=== PATIENT | female | born 1930 | race Caucasian/White ===

== ENCOUNTER 2017-02-20 03:47 | Inpatient (IN) | payer BC, OTHER ==
[~2017-02-20] VITALS: Ht 170.2 cm; Wt 68.0 kg
[2017-02-20] VITALS (12 sets, daily range): BP systolic 124–164; BP diastolic 58–89; PULSE 68–87; TEMP 36.3–37; O2SAT 92–98; Ht 170.2 cm; Wt 68.0 kg
[~2017-02-20 03:47] MED LIST: CLOP1TAB15 PO; DTRSR2 PO; METO25TA3 PO
[2017-02-20] MEDS ORDERED: CALC500C70 PO (05:16)
[2017-02-20] MEDS ORDERED: PRAV20TA PO (05:28)
[2017-02-20] MEDS ORDERED: CARB25TA12 PO (05:30)
[2017-02-20] MEDS ORDERED: DONE10TA12 PO (05:30)
[2017-02-20] MEDS ORDERED: CHOL1CAP PO (05:32)
[2017-02-20] MEDS ORDERED: MULTCHW3 (05:33)
[2017-02-20] MEDS ORDERED: CLR10 PO (05:34)
[2017-02-20 05:42] LABS: BASO % 0.2 %; BASO ABS # 0.02 K/uL (0-0.2); COMPLETE YES; EOS % 0.4 %; HEMATOCRIT 39.2 % (37-47); IG% 0.2 %; LYMPH % 8.3 %; LYMPH ABS # 0.86 K/uL (1.2-3.4); MEAN CELL VOLUME 92.2 fL (80-100); MEAN CORPUSCULAR HEMOGLOBIN 30.4 pg (25-34); MEAN CORPUSCULAR HGB CONC 32.9 g/dl (32-36); MEAN PLATELET VOLUME 10.4 fL (7.4-10.4); MONO % 7.3 %; NEUT % 83.6 %; PLATELET COUNT 157 K/uL (130-400); RED BLOOD COUNT 4.25 M/uL (4.2-5.4); WHITE BLOOD COUNT 10.42 K/uL (4.8-10.8)
[2017-02-20] MEDS ORDERED: TRAMADOL HCL 50 MG TAB PO PRN (06:00)
[2017-02-20] MEDS ORDERED: HYDROmorphone INJ 0.5 MG/0.5 ML SYR IV PRN ×3 (06:00→15:30)
[2017-02-20] MEDS ORDERED: ONDANSETRON INJ 2 MG/ML 2 ML VIAL IV PRN ×3 (06:00→15:45)
[2017-02-20 06:18] LABS: BLOOD UREA NITROGEN 26 mg/dl (7-18); BUN/CREATININE RATIO 17.6 (10-20); CALCIUM 8.4 mg/dl (8.5-10.1); CARBON DIOXIDE 30 mmol/L (21-32); CHLORIDE 106 mmol/L (98-107); GLUCOSE 157 mg/dl (70-99); POTASSIUM 3.9 mmol/L (3.5-5.1); SODIUM 143 mmol/L (136-145)
[2017-02-20] MEDS: SODIUM CHLORIDE 0.45% 1000ML 1,000 ML IV SCH (06:32)
[2017-02-20] MEDS ORDERED: SOD PHOSPHATE/SOD BIPHOSPHATE ENEMA 132 ML BTL PR PRN (08:00)
[2017-02-20] MEDS ORDERED: POLYETHYLENE (MIRALAX) 17 GM PACK PO PRN (08:00)
[2017-02-20] MEDS ORDERED: NALOXONE HCL 0.4 MG/1 ML VIAL/CARP IV PRN (08:00)
[2017-02-20] MEDS ORDERED: BISACODYL 10 MG SUPP PR PRN (08:00)
[2017-02-20 09:19] LABS: ESTIMATED AVERAGE GLUCOSE 137 mg/dl; HA1C FLAG Normal (Normal)
[2017-02-20] MEDS: DONEPEZIL HCL 10 MG TAB PO SCH (09:25)
[2017-02-20] MEDS: LORATADINE 10 MG TAB PO SCH (09:25)
--- NOTE | 2017-02-20 09:52 | HISTORY & PHYSICAL EXAMINATION ---
DATE OF ADMISSION: 02/20/2017 PRIMARY CARE DOCTOR: Dr. Doan. CHIEF COMPLAINT: Right hip fracture. HISTORY OF PRESENT ILLNESS: History obtained from patient and records. Medical history significant for history of CVA, CRI ( baseline creatinine 1.4 to 1.5), Parkinson's disease, dementia. Patient is a personal assisted resident. Last night, patient attempted to get out of bed leading to her slipping on the floor and falling on her right side. No chest pain. No sob. No syncope. No head trauma. Unable to get up. Excruciating R hip pain. Patient evaluated at [facility] ER. Right hip x-ray showed right intertrochanteric hip fracture. Transferred to [facility] for Orthopedic services. MEDICAL HISTORY: As above. SURGERIES: Cataract surgery, hysterectomy, tubal ligation, tonsillectomy/ adenoidectomy. HOME MEDICATIONS: Include Plavix, carbidopa, pravastatin, cholecalciferol, calcium, Centrum. ALLERGIES: ASPIRIN AND PENICILLIN. FAMILY HISTORY: Stomach cancer, breast cancer, heart disease. PERSONAL SOCIAL HISTORY: Nonsmoker, no chronic intake of alcohol. 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 REVIEW OF SYSTEMS: As per HPI, all other ROS negative. FUNCTIONALITY: Able to ambulate at the personal assisted without any exertional chest pain or shortness of breath. PHYSICAL EXAMINATION: VITAL SIGNS: Blood pressure noted to be 130/80, pulse rate 87, RR 16, temperature 36.8, sats 98 on room air. GENERAL: Noted to be slightly uncomfortable. No respiratory distress, oriented. SKIN: Normal color. HEAD, EYES, EARS, NOSE, AND THROAT: Barnhart palpebral conjunctivae. Dry mucosa. NECK: Short neck. LUNGS: Decreased breath sounds. HEART: Regular rate and rhythm. ABDOMEN: Soft. NT EXTREMITIES: Tenderness in the right hip. RLE ext rotated NEUROLOGIC EXAMINATION: No gross focality except for some slowed response to questions. LABORATORY DATA: Hemoglobin 12.9, white cell count 10.4, platelets 200 Sodium 143, chloride 106, CO2 30, creatinine 1.5, glucose was noted to be 157. Chest x-ray from [facility] no acute pathology. EKG as per my interpretation : rate 75, normal sinus rhythm, LVH, TW flattening inferior leads. ASSESSMENT AND PLAN: 1. Traumatic right hip fracture secondary to mechanical fall. 2. Parkinson's disease, stable. 3. History of cerebrovascular accident as per records. 4. Chronic renal insufficiency, creatinine at baseline. 5. Hyperglycemia, rule out diabetes. GMF analgesia (no NSAIDs) Orthopedics consult RE right hip fracture. (Patient's family requesting for [place]. [place] [facility] No medical contraindication to contemplated procedure. Px at low to moderate risk for cardiac complications for intermediate risk procedure as per RCRI. Delirium precautions. PT, OT eval. Check hemoglobin A1c. DVT prophylaxis, SCDs for now. Recommend pharmacologic anticoagulation with Heparin SQ once bleeding risk is deemed to be minimal and negligible. FULL CODE. Patient's son requesting for updates from providers. Mr. Pranay Rogel at [phone]. [facility]
--- NOTE | 2017-02-20 10:34 | ORTHOPEDIC CONSULTATION ---
DATE OF CONSULTATION: 02/20/2017 CHIEF COMPLAINT: Right hip fracture. HISTORY OF PRESENT ILLNESS: This is an 87-year-old female who had her birthday yesterday. She states that she attempted to get out of bed and she had complaints of pain and inability to bear weight on the right side. It is possible that she may have fallen but her recollection of the injury is unclear. She was evaluated at [facility] and she was referred to [facility] for definitive orthopedic treatment. PAST MEDICAL HISTORY: History of CVA, chronic kidney disease, Parkinson's disease, dementia. SURGERIES: Include cataract surgery and tubal ligation. MEDICATIONS: Include Plavix, pravastatin, carbidopa, cholecalciferol, Centrum. ALLERGIES: ASPIRIN AND PENICILLIN. FAMILY HISTORY: History of stomach cancer and breast cancer. PHYSICAL EXAMINATION: Right lower extremity examination shows pain with log roll of the right hip. She has tenderness to the intertrochanteric region. Her calves are soft without significant swelling. She can flex and extend the ankle, but exam is limited secondary to discomfort. The left hip shows no pain with log roll. RADIOGRAPHIC EVALUATION: Radiographs taken at [facility] do show an intertrochanteric hip fracture. There is a fracture to the lesser trochanter, varus displacement is seen. ASSESSMENT: 1. Parkinson's disease, stable. 2. Dementia. 3. History of cerebrovascular accident. 4. Chronic renal insufficiency. 5. Hyperglycemia. PLAN: I discussed surgical treatment options and nonsurgical treatment options with the patient and power of insurance defense attorney. My recommendation is for surgical treatment to allow for immediate ambulation. Surgical treatment I feel would be best performed by intertrochanteric hip nail. I discussed risks and benefits of decreased ambulatory status, risk of anesthesia complications, decreased ability to bear weight, nerve injury, infection, etc. The patient and caregiver are agreeable and wish to proceed with surgical intervention. She is currently on Plavix; however, I feel it would be reasonable to proceed with surgical intervention at this point in time as waiting for the Plavix to get out of the system would increase the risk of complications. Currently, she lives in assisted living [facility] and does ambulate with a walker in the home but minimally in the community.
[2017-02-20] MEDS: CARBIDOPA/LEVODOPA 25/100MG TAB PO SCH ×2 (13:24→20:50)
[2017-02-20] MEDS ORDERED: PROPOFOL IV EMULSION 10 MG/ML 20 ML VIAL IV ONE (13:38)
[2017-02-20] MEDS ORDERED: ONDANSETRON INJ 2 MG/ML 2 ML VIAL ONE (13:38)
[2017-02-20] MEDS ORDERED: FENTANYL CITRATE INJ 50 MCG/1 ML 2 ML VIAL ONE ×2 (13:38→16:01)
[2017-02-20] MEDS ORDERED: LIDOCAINE HCL 2% 2 ML VIAL (20MG/ML) ONE (13:38)
[2017-02-20] MEDS ORDERED: CEFAZOLIN SOD 1000MG/55 ML D5W IV ONE (13:48)
[2017-02-20] MEDS ORDERED: BUPIVACAINE 0.5 % 5 MG/1 ML MPF 30ML VIAL ONE (14:00)
[2017-02-20] MEDS ORDERED: EpHEDrine SULFATE 50MG/5ML SYR ONE (14:57)
[2017-02-20] MEDS ORDERED: LABETALOL HCL IV 5 MG/ML 20ML IV ONE (15:10)
[2017-02-20] MEDS ORDERED: HydrALAZINE HCL 20 MG/ML VIAL ONE (15:11)
--- NOTE | 2017-02-20 15:21 | DIAGNOSTIC IMAGING REPORT ---
HIP OR FILMS CLINICAL HISTORY: RIGHT HIP ORIF COMPARISON STUDY: None FLUOROSCOPY TIME: 2 minutes. FINDINGS: Findings consistent with a right hip rupa placement. Alignment is anatomic IMPRESSION: Image intensifier usage for right hip rupa placement Electronically signed by: Curly Hood M.D. 02/20/2017 3:19 PM Dictated Date/Time: 02/20/2017 3:18 PM
--- NOTE | 2017-02-20 15:36 | [facility] Post Operative Brief Note ---
Immediate Operative Summary Operative Date Feb 20, 2017. Pre-Operative Diagnosis Right hip fracture Post-Operative Diagnosis Same as preop Procedure(s) Performed Intramedullary Thony Right Femur Surgeon Dr. Hobbs Commercial Teller Surgeon(s) Israel Quevedo PA-C Estimated Blood Loss 20 cc Findings intertroch hip fx Specimens None, as per surgeon Anesthesia gen Complication(s) None Disposition Recovery Room / PACU
[2017-02-20] MEDS ORDERED: FENTANYL CITRATE INJ 50 MCG/1 ML 2 ML VIAL IV PRN (15:45)
[2017-02-20] MEDS ORDERED: ATROPINE SULFATE 0.1 MG/ML 5ML SYR IV PRN (15:45)
[2017-02-20] MEDS ORDERED: EpHEDrine SULFATE INJ 50 MG/ML AMP IV PRN (15:45)
[2017-02-20] MEDS ORDERED: PROMETHAZINE HCL INJ 6.25 MG in SODIUM CHLORIDE 0.9% 50ML 50 ML IV PRN (15:45)
--- NOTE | 2017-02-20 15:47 | Anesthesiology Progress Note ---
Anesthesia Post Op Note Date & Time Feb 20, 2017 at 15:47 Vital Signs Pain Intensity: 5.0 Vital Signs Past 12 Hours Date Time Temp Pulse Resp B/P (MAP) Pulse Ox O2 Delivery O2 Flow Rate FiO2 02/20/17 11:39 36.8 72 13 164/82 (109) 96 Room Air 02/20/17 08:06 96 Room Air 02/20/17 07:45 36.9 70 12 152/80 (104) 96 Room Air 02/20/17 07:40 Room Air 02/20/17 07:06 36.8 68 18 159/89 (112) 94 Room Air 02/20/17 05:03 36.8 87 16 137/77 (97) 94 Room Air 02/20/17 04:40 36.8 87 16 137/77 94 Room Air Notes Mental Status: alert / awake / arousable, participated in evaluation Pt Amnestic to Procedure: Yes Nausea / Vomiting: adequately controlled Pain: adequately controlled Airway Patency, RR, SpO2: stable & adequate BP & HR: stable & adequate Hydration State: stable & adequate Anesthetic Complications: no major complications apparent
--- NOTE | 2017-02-20 16:04 | DIAGNOSTIC IMAGING REPORT ---
RIGHT HIP UNILATERAL 2 VIEWS CLINICAL HISTORY: post op Right COMPARISON: None. DISCUSSION: Evidence for right hip nailing procedure. Alignment is anatomic. Expected soft tissue postoperative change IMPRESSION: Right hip nailing procedure Electronically signed by: Curly Hood M.D. 02/20/2017 4:03 PM Dictated Date/Time: 02/20/2017 4:02 PM
--- NOTE | 2017-02-20 16:08 | OPERATIVE REPORT ---
DATE OF OPERATION: 02/20/2017 PREOPERATIVE DIAGNOSIS: Right intertrochanteric displaced hip fracture. POSTOPERATIVE DIAGNOSIS: Same. PROCEDURE: Right intramedullary nail hip fracture. SURGEON: Dr. Hobbs. NUT AND BOLT ASSEMBLER: Vinicio Quevedo PA-C. ANESTHESIA: General. INDICATIONS: This is an 87-year-old female who sustained a displaced intertrochanteric hip fracture. She presents for intramedullary nail fixation. The risks and benefits have been discussed including, but not limited to, risk of infection, nerve injury, stiffness, loss of motion, failure to improve, etc. The patient is agreeable and wishes to proceed. IMPLANT USED: Synthes short trochanteric femoral nail. OPERATION AND FINDINGS: DESCRIPTION OF OPERATION: The patient was placed on the fracture table. Traction was applied and an appropriate reduction maneuver was performed. This resulted in good alignment of the hip. The hip was prepped and draped in the standard fashion. I made an incision approximately 1-1/2 inches proximal to the greater trochanter. Dissection was carried down through the skin and subcutaneous tissue. The fascia was bluntly incised and I placed a guidewire at the tip of the greater trochanter. This was driven into the femoral canal at the appropriate angle. I then used an entry drill to open the femur. A guidewire was placed. I then reamed the proximal portion of the femur up to a size 13. I selected a size 12 Synthes trochanteric femoral nail and this was placed in the canal. This was checked in multiple views with fluoroscopy and this was in good position. I then made a second incision for the locking blade and dissection was carried down through the skin and subcutaneous tissue and fascial layer. The trochanteric femoral nail jig was then placed adjacent to the proximal femur and I placed a guidewire in the center-center position of the femoral head. I then measured and selected a size 100 helical blade. This was then driven into the neck of the femur. I then slightly compressed the femur. The helical blade was locked in place. Care was taken to place the tip of the blade within 1 cm of the subchondral bone. I then made an incision for a locking screw and with the standard alignment guide I drilled for interlocking screw. I then selected a size 36 screw and this was placed across the nail. This resulted in good fixation. This was checked in multiple views with fluoroscopy and was across the nail. Incisions were irrigated. Deeper layer was closed with 2-0 Vicryl. Rizwan were used on the skin. The patient was placed in a soft dressing, sent to the PACU in stable condition. Postop plan will be partial weightbearing with a walker and Lovenox for anticoagulation. I attest to the content of the Intraoperative Record and any orders documented therein. Any exception s are noted below.
[2017-02-20 17:14] LABS: PROTHROMBIN TIME (PATIENT) 10.5 SECONDS (9.0-12.0)
--- NOTE | 2017-02-20 18:09 | Hospitalist Progress Note ---
Hospitalist Progress Note Date of Service Feb 20, 2017. (Hardik Rsusell PA-C) Subjective Pt evaluation today including: conversation w/ patient, conversation w/ family (Son is in the room) Pain: Controlled PO Intake: Dinner tray at bedside. Patient to have [employer] assist with meal This is an 87 year old female that slid off the couch at [facility] where she resides. She was transported to the ED in [place] and found to have a right hip fracture. Ortho was not available at [facility] so she was transferred to [facility] where she was seen by [facility] per the request of the family. She was seen by Dr. Hobbs and taken to the OR this afternoon where she had Synthes short trochanteric femoral nail fixation. She had an estimated blood loss of 20 mL. There were no reported complications. Patient was recovered by PACU and transferred back to room 350. Family is at bedside. She reports that she has no pain at the surgical site. Ice packs are in place. There is no evidence of bleeding through the dressings and no ecchymosis. Right foot is no longer rotated and sensation to toes is intact. As SCDs are compressing, patient complains that her legs feel tight but has no calf pain. She has no pleuritic pain or SOB. She is oxygenating with no signs of distress. She has no other acute complaints. No history of tobacco or EtOH use in the past PMH: Parkinson's with dementia CVA in 2008 TIA in 2016 HTN Seasonal Allergies CRF Baseline 1.4 to 1.5 PSH: LAYTON/BSO Breast Biopsy with Dr. Dumont Vein ligation Tonsillectomy / adenoidectomy as a child Home Meds: Calcium Cholecalciferol Clopidogrel Donepezil Sinemet Claritin Pravastatin MVI Allergies: ASA caused cough due to the coating 20 years ago PCN = rash VACCINATIONS: Influenza: 06/26/2016 Pneumococcal: 04/24/2002 TdAP: 04/24/2002 Zoster: 11/18/2012 Constitutional: No fever Respiratory: No cough Cardiovascular: No chest pain Abdomen: No nausea, No vomiting, No diarrhea Musculoskeletal: No joint pain Heme: No abnormal bleeding/bruising Skin: No rash, No itch All Other Systems: Reviewed and Negative (Hardik Russell PA-C) Medications Current Inpatient Medications Medications (Trade) Dose Ordered Sig/[place] Route Start Time Stop Time Status Last Admin Dose Admin Acetaminophen (Tylenol Tab) 650 mg Q4H PRN PO 02/20/17 05:00 03/22/17 04:59 Sodium Chloride 1,000 ml @ 50 mls/hr Q20H IV 02/20/17 06:00 03/22/17 05:59 02/20/17 06:32 50 MLS/HR Tramadol HCl (Ultram Tab) 25 mg Q6H PRN PO 02/20/17 06:00 03/22/17 05:59 Ondansetron HCl (Zofran Inj) 4 mg Q6H PRN IV 02/20/17 06:00 03/22/17 05:59 Hydromorphone HCl (Dilaudid Inj) 0.5 mg Q4H PRN IV 02/20/17 06:00 03/06/17 05:59 Carbidopa/Levodopa (Sinemet 25/ 100MG Tab) 2 tab TID PO 02/20/17 14:00 03/22/17 13:59 Donepezil HCl (Aricept Tab) 10 mg DAILY PO 02/20/17 09:00 03/22/17 08:59 02/20/17 09:25 10 MG Loratadine (Claritin Tab) 10 mg DAILY PO 02/20/17 09:00 03/22/17 08:59 02/20/17 09:25 10 MG Pravastatin Sodium (Pravachol Tab) 20 mg HS PO 02/20/17 21:00 03/22/17 20:59 Naloxone HCl (Narcan Inj) 0.1 mg PRN PRN IV 02/20/17 08:00 03/22/17 07:59 Senna/Docusate Sodium (Senokot S Tab) 2 tab HS PO 02/20/17 21:00 03/22/17 20:59 Polyethylene (Miralax Powder Packet) 17 gm DAILY PRN PO 02/20/17 08:00 03/22/17 07:59 Magnesium Hydroxide (Milk Of Magnesia Susp) 30 ml DAILY PRN PO 02/20/17 08:00 03/22/17 07:59 Bisacodyl (Dulcolax Supp) 10 mg DAILY PRN MA 02/20/17 08:00 03/22/17 07:59 Sodium Biphosphate/ Sodium Phosphate (Fleet Enema) 132 ml PRN PRN MA 02/20/17 08:00 Enoxaparin Sodium (Lovenox Inj) 40 mg Q24H SQ 02/20/17 15:30 03/22/17 15:29 UNV Cefazolin Sodium 1000 mg/Dextrose 55 ml @ 100 mls/hr Q8H IV 02/20/17 22:00 02/21/17 06:32 Ondansetron HCl (Zofran Inj) 4 mg Q6H PRN IV 02/20/17 15:30 03/22/17 15:29 Hydromorphone HCl (Dilaudid Inj) 0.25 mg Q20M PRN IV 02/20/17 15:30 03/06/17 15:29 Hydromorphone HCl (Dilaudid Inj) 0.5 mg Q20M PRN IV 02/20/17 15:30 03/06/17 15:29 Fentanyl Citrate (Fentanyl Inj) 50 mcg Q5M PRN IV 02/20/17 15:45 02/20/17 20:45 Ondansetron HCl (Zofran Inj) 4 mg ONE PRN IV 02/20/17 15:45 02/20/17 20:45 Promethazine HCl 6.25 mg/Sodium Chloride 50.25 ml @ 202 mls/hr ONE PRN IV 02/20/17 15:45 02/20/17 20:45 Ephedrine Sulfate (EpHEDrine SULFATE INJ) 5 mg Q5M PRN IV 02/20/17 15:45 02/20/17 20:45 Atropine Sulfate (Atropine Sulfate 0.1MG/Ml Inj) 0.5 mg Q1M PRN IV 02/20/17 15:45 02/20/17 20:45 (Hardik Russell-C) Objective Vital Signs Date Time Temp Pulse Resp B/P (MAP) Pulse Ox O2 Delivery O2 Flow Rate FiO2 02/20/17 17:10 36.3 86 18 124/69 (87) 98 Nasal Cannula 2.0 02/20/17 16:20 36.0 80 14 139/68 97 Nasal Cannula 2 02/20/17 16:10 80 12 138/62 96 Nasal Cannula 2 02/20/17 16:00 81 12 145/68 96 Nasal Cannula 2 02/20/17 15:50 80 14 141/80 96 Nasal Cannula 2 02/20/17 15:40 76 15 134/60 98 Mask 10 02/20/17 15:30 77 12 140/65 99 Mask 10 02/20/17 15:24 36.5 78 20 159/69 99 Mask 10 02/20/17 11:39 36.8 72 13 164/82 (109) 96 Room Air 02/20/17 08:06 96 Room Air 02/20/17 07:45 36.9 70 12 152/80 (104) 96 Room Air 02/20/17 07:40 Room Air 02/20/17 07:06 36.8 68 18 159/89 (112) 94 Room Air 02/20/17 05:03 36.8 87 16 137/77 (97) 94 Room Air 02/20/17 04:40 36.8 87 16 137/77 94 Room Air (Hardik Russell-C) Physical Exam Notes: Vital Signs - as noted below Laboratory Data - as noted below Physical Exam: General - NAD, pleasant Eyes - No icterus, gaze conjugate, PERRL ENT - Mucosa moist, no lesions or candidiasis Neck - Supple, No JVD Lungs - No bronchospasm, rales, or rhonchi. Good aeration Heart - Regular, rate controlled Abdomen - Soft, NT, ND, BS present Extremities - B/L LE edema, pedal pulses intact and equal to B/L LE Neuro - Awake and alert, pleasant (Hardik Russell-C) Laboratory Results Last 24 Hours Test 02/20/17 05:30 02/20/17 16:45 White Blood Count 10.42 K/uL Red Blood Count 4.25 M/uL Hemoglobin 12.9 g/dL Hematocrit 39.2 % Mean Corpuscular Volume 92.2 fL Mean Corpuscular Hemoglobin 30.4 pg Mean Corpuscular Hemoglobin Concent 32.9 g/dl Platelet Count 157 K/uL Mean Platelet Volume 10.4 fL Neutrophils (%) (Auto) 83.6 % Lymphocytes (%) (Auto) 8.3 % Monocytes (%) (Auto) 7.3 % Eosinophils (%) (Auto) 0.4 % Basophils (%) (Auto) 0.2 % Neutrophils # (Auto) 8.72 K/uL Lymphocytes # (Auto) 0.86 K/uL Monocytes # (Auto) 0.76 K/uL Eosinophils # (Auto) 0.04 K/uL Basophils # (Auto) 0.02 K/uL RDW Standard Deviation 46.2 fL RDW Coefficient of Variation 13.7 % Immature Granulocyte % (Auto) 0.2 % Immature Granulocyte # (Auto) 0.02 K/uL Sodium Level 143 mmol/L Potassium Level 3.9 mmol/L Chloride Level 106 mmol/L Carbon Dioxide Level 30 mmol/L Anion Gap 7.0 mmol/L Blood Urea Nitrogen 26 mg/dl Creatinine 1.50 mg/dl Estimated GFR () 36.2 Estimated GFR (Non- 31.2 BUN/Creatinine Ratio 17.6 Random Glucose 157 mg/dl Estimated Average Glucose 137 mg/dl Hemoglobin A1c 6.4 % Calcium Level 8.4 mg/dl 25-Hydroxy Vitamin D Total 30.9 ng/ml Prothrombin Time 10.5 SECONDS Prothromb Time International Ratio 1.0 Activated Partial Thromboplast Time 25.7 SECONDS Partial Thromboplastin Ratio 1.0 (Hardik Russell PA-C) Diagnostic Results RIGHT HIP UNILATERAL 2 VIEWS CLINICAL HISTORY: post op Right COMPARISON: None. DISCUSSION: Evidence for right hip nailing procedure. Alignment is anatomic. Expected soft tissue postoperative change IMPRESSION: Right hip nailing procedure Electronically signed by: Curly Hood M.D. 02/20/2017 4:03 PM (Hardik Russell PA-C) Assessment and Plan HIP FRACTURE Mechanical fall Ortho consulted - Appreciate Dr. Hobbs's input Trochanteric nailing - EBL 20 mL Pain controlled Increase ambulation per Ortho Discussed need for possible rehab placement with family PARKINSON'S DEMENTIA Continue Sinemet and Aricept Hx OF CVA / TIA Clopidogrel held today for surgical procedure Family states that she is at baseline Resume Plavix per ortho Continue Pravastatin Hx HTN No home meds Hemodynamically stable Treat PRN DVT PROPHYLAXIS Chemical prophylaxis per ortho SCDs in place Please refer to Dr. Perez's addendum for further recommendations Continued [facility] stay due to: ambulation difficulties, other (Fixation of fractured hip 02/20/2017) Discharge planning: uncertain (Hardik Russell PA-C) ATTENDING ADDENDUM: I have seen and examined the patient and agree with the assessment and plan as stated above. DO ADOLFO (Layla Perez, DO)
[2017-02-20] MEDS: PRAVASTATIN SOD 20 MG TAB PO SCH (20:49)
[2017-02-20] MEDS: DOCUSATE SODIUM/SENNA 50/8.6MG TAB PO SCH (20:49)
[2017-02-20] MEDS: CEFAZOLIN IV 1,000 MG in DEXTROSE 5% 50ML 50 ML IV SCH (21:57)
[2017-02-21] VITALS (7 sets, daily range): BP systolic 144–179; BP diastolic 70–79; PULSE 71–89; TEMP 36.3–37.2; O2SAT 93–98
[2017-02-21] MEDS: SODIUM CHLORIDE 0.45% 1000ML 1,000 ML IV SCH (02:30)
[2017-02-21] MEDS: ACETAMINOPHEN 325 MG TAB PO PRN ×2 (05:40→12:28)
[2017-02-21] MEDS: CEFAZOLIN IV 1,000 MG in DEXTROSE 5% 50ML 50 ML IV SCH (05:42)
[2017-02-21] MEDS: ENOXAPARIN 40 MG/0.4 ML SYR SQ SCH (05:45)
[2017-02-21 06:14] LABS: HEMATOCRIT 35.9 % (37-47); MEAN CORPUSCULAR HEMOGLOBIN 30.6 pg (25-34); MEAN CORPUSCULAR HGB CONC 32.9 g/dl (32-36); MEAN PLATELET VOLUME 10.5 fL (7.4-10.4); PLATELET COUNT 147 K/uL (130-400); RED BLOOD COUNT 3.86 M/uL (4.2-5.4); WHITE BLOOD COUNT 10.58 K/uL (4.8-10.8)
[2017-02-21 06:43] LABS: BUN/CREATININE RATIO 19.5 (10-20); CALCIUM 8.2 mg/dl (8.5-10.1); CREATININE 1.4 mg/dl (0.60-1.20); POTASSIUM 4.1 mmol/L (3.5-5.1)
[2017-02-21] MEDS ORDERED: SODIUM CHLORIDE 0.45% 1000ML 1,000 ML IV ONE ×2 (07:00→07:15)
--- NOTE | 2017-02-21 08:11 | Orthopedic Progress Note ---
Orthopedic Progress Note Date of Service Feb 21, 2017. Subjective Post OP Day: 1 Reports: feeling well, pain controlled w PO medications, Denies: complaints, chest pain, SOB, nausea / vomiting, light headedness, calf pain Additional Notes: Patient states she feels hungry this morning. She denies any pain at the time of examination. Objective calves soft nontender, capillary refill less than 2 sec., dressing C/D/I, A&O x3 , toes mobile Patient was laying in bed with her eyes were closed during entire examination but answered questions appropriately. Dressings are clean, dry and intact. Neurovascularly intact. Date Time Temp Pulse Resp B/P (MAP) Pulse Ox O2 Delivery O2 Flow Rate FiO2 02/21/17 07:12 36.7 71 16 154/74 (100) 97 2.0 02/21/17 07:00 Nasal Cannula 2.0 02/21/17 04:38 37.2 89 16 144/77 (99) 93 Room Air 02/21/17 00:00 Room Air 02/20/17 22:48 37.0 85 15 149/71 (97) 92 Room Air 02/20/17 19:58 36.9 83 16 149/69 (95) 98 Nasal Cannula 2.0 02/20/17 18:47 37.0 86 16 148/69 (95) 96 Nasal Cannula 2.0 02/20/17 17:40 36.7 79 16 158/58 (91) 97 Nasal Cannula 2.0 02/20/17 17:10 36.3 86 18 124/69 (87) 98 Nasal Cannula 2.0 02/20/17 16:40 Nasal Cannula 2.0 02/20/17 16:40 36.7 14 129/66 (87) 98 Nasal Cannula 2.0 02/20/17 16:40 98 Nasal Cannula 2.0 02/20/17 16:20 36.0 80 14 139/68 97 Nasal Cannula 2 02/20/17 16:10 80 12 138/62 96 Nasal Cannula 2 02/20/17 16:00 81 12 145/68 96 Nasal Cannula 2 02/20/17 15:50 80 14 141/80 96 Nasal Cannula 2 02/20/17 15:40 76 15 134/60 98 Mask 10 02/20/17 15:30 77 12 140/65 99 Mask 10 02/20/17 15:24 36.5 78 20 159/69 99 Mask 10 02/20/17 11:39 36.8 72 13 164/82 (109) 96 Room Air 02/20/17 08:06 96 Room Air Laboratory Results 24 Hours: Test 02/20/17 16:45 02/21/17 06:00 Prothromb Time International Ratio 1.0 Prothrombin Time 10.5 SECONDS Hematocrit 35.9 % Hemoglobin 11.8 g/dL Assessment & Plan Assessment: 87 y/o female POD #1 S/P Right intertrochanteric nail. Plan: 1. Med Management 2. PT/OT - partial weight bearing 3. DVT prop - Lovenox and plavix 4. Discharge - uncertain Inhouse Planning Pain Management: Dilaudid DVT Prophylaxis: SCDs, Lovenox, other (Plavix) Discharge Planning Discharge Planning: uncertain
[2017-02-21] MEDS: LORATADINE 10 MG TAB PO SCH (08:32)
[2017-02-21] MEDS: DONEPEZIL HCL 10 MG TAB PO SCH (08:32)
[2017-02-21] MEDS: CARBIDOPA/LEVODOPA 25/100MG TAB PO SCH ×3 (08:32→21:00)
[2017-02-21] MEDS ORDERED: CLOPIDOGREL BISULFATE 75 MG TAB PO SCH (09:00)
--- NOTE | 2017-02-21 15:15 | PROGRESS NOTE ---
DATE: 02/21/2017 SUBJECTIVE: Laureen was seen at the bedside today. She notes no complaints of pain in the right hip. OBJECTIVE: RIGHT LOWER EXTREMITY: She has no tenderness over the calf and no significant swelling in the calf. Her surgical dressings are clean, dry and intact. She can flex and extend the ankle and the toes. IMAGING DATA: Postoperative radiographs do show adequate alignment status post trochanteric femoral nailing for intertrochanteric fracture. ASSESSMENT: Postop day #1 right intertrochanteric femoral nail. PLAN: At this point in time, she may be partial weightbearing with a walker. We will continue Lovenox and SCDs for anticoagulation. She may be mobilized with physical therapy. We will continue to follow.
--- NOTE | 2017-02-21 17:54 | Progress Note ---
Medicine Progress Note Date & Time of Visit: Feb 21, 2017 at 17:43. Subjective patient seen resting in bed, comfortable pleasant, oriented x 2 denies pain, shortness of breath, chest pain, nausea, dizziness no other symptoms Objective Last 8 Hrs Date Time Temp Pulse Resp B/P (MAP) Pulse Ox O2 Delivery O2 Flow Rate FiO2 02/21/17 15:23 36.3 72 16 168/78 (108) 98 Nasal Cannula 2.0 Humidified Oxygen 02/21/17 15:05 98 Nasal Cannula 2.0 Humidified Air 02/21/17 13:14 72 97 02/21/17 11:15 Nasal Cannula 2.0 02/21/17 11:13 36.4 78 16 152/76 (101) 95 2.0 Physical Exam: General- oriented x 2, not in distress, speaks in sentences with no effort Head- atraumatic Eyes- anicteric ENT- oropharynx clear Neck- supple, no JVD Lungs- clear breath sounds bilaterally Heart- regular rhythm; no murmur, normal rate Abdomen- normal bowel sounds, soft, nontender Extremities- no pretibial edema, no calf tenderness; peripheral pulses intact right hip: (+) dressing in place, no warmth/hematoma Neuro- alert, oriented x 2;no gross focal deficits Skin- warm & dry Laboratory Results: Last 24 Hours Test 02/21/17 06:00 White Blood Count 10.58 K/uL Red Blood Count 3.86 M/uL Hemoglobin 11.8 g/dL Hematocrit 35.9 % Mean Corpuscular Volume 93.0 fL Mean Corpuscular Hemoglobin 30.6 pg Mean Corpuscular Hemoglobin Concent 32.9 g/dl RDW Standard Deviation 48.3 fL RDW Coefficient of Variation 14.3 % Platelet Count 147 K/uL Mean Platelet Volume 10.5 fL Sodium Level 140 mmol/L Potassium Level 4.1 mmol/L Chloride Level 103 mmol/L Carbon Dioxide Level 29 mmol/L Anion Gap 8.0 mmol/L Blood Urea Nitrogen 27 mg/dl Creatinine 1.40 mg/dl Est Creatinine Clear Calc Drug Dose 28.1 ml/min Estimated GFR () 39.3 Estimated GFR (Non- 33.9 BUN/Creatinine Ratio 19.5 Random Glucose 161 mg/dl Calcium Level 8.2 mg/dl Assessment & Plan 87 year old female with history of Dementia, Parkinson,CKD 3, CVA presenting s/p Fall. RIGHT HIP FRACTURE S/P Mechanical fall -- s/p Trochanteric nailing 02/20/17 -- post op day 1 -- overall stable monitor Hg on Lovenox SC for DVT prophylaxis PARKINSON'S DEMENTIA Continue Sinemet and Aricept Hx OF CVA / TIA Clopidogrel held for surgical procedure Resume Plavix when cleared by Ortho Continue Pravastatin Hx HTN No home meds PRN Clonidine monitor BP PRE DM a1c 6.4 BSGs stable DM diet VIT D DEFICIENCY on supplementation monitor as outpatient DVT PROPHYLAXIS Lovenox SCDs in place Disposition anticipate d/c to SNF when cleared by Ortho Continued [facility] stay due to: ambulation difficulties, other (Fixation of fractured hip 02/20/2017) Discharge planning: uncertain Current Inpatient Medications: Current Inpatient Medications Medications (Trade) Dose Ordered Sig/[place] Route Start Time Stop Time Status Last Admin Dose Admin Acetaminophen (Tylenol Tab) 650 mg Q4H PRN PO 02/20/17 05:00 03/22/17 04:59 02/21/17 12:28 650 MG Tramadol HCl (Ultram Tab) 25 mg Q6H PRN PO 02/20/17 06:00 03/22/17 05:59 Ondansetron HCl (Zofran Inj) 4 mg Q6H PRN IV 02/20/17 06:00 03/22/17 05:59 Hydromorphone HCl (Dilaudid Inj) 0.5 mg Q4H PRN IV 02/20/17 06:00 03/06/17 05:59 Carbidopa/Levodopa (Sinemet 25/ 100MG Tab) 2 tab TID PO 02/20/17 14:00 03/22/17 13:59 02/21/17 13:37 2 TAB Donepezil HCl (Aricept Tab) 10 mg DAILY PO 02/20/17 09:00 03/22/17 08:59 02/21/17 08:32 10 MG Loratadine (Claritin Tab) 10 mg DAILY PO 02/20/17 09:00 03/22/17 08:59 02/21/17 08:32 10 MG Pravastatin Sodium (Pravachol Tab) 20 mg HS PO 02/20/17 21:00 03/22/17 20:59 02/20/17 20:49 20 MG Naloxone HCl (Narcan Inj) 0.1 mg PRN PRN IV 02/20/17 08:00 03/22/17 07:59 Senna/Docusate Sodium (Senokot S Tab) 2 tab HS PO 02/20/17 21:00 03/22/17 20:59 02/20/17 20:49 2 TAB Polyethylene (Miralax Powder Packet) 17 gm DAILY PRN PO 02/20/17 08:00 03/22/17 07:59 Magnesium Hydroxide (Milk Of Magnesia Susp) 30 ml DAILY PRN PO 02/20/17 08:00 03/22/17 07:59 Bisacodyl (Dulcolax Supp) 10 mg DAILY PRN [place] 02/20/17 08:00 03/22/17 07:59 Sodium Biphosphate/ Sodium Phosphate (Fleet Enema) 132 ml PRN PRN [place] 02/20/17 08:00 Enoxaparin Sodium (Lovenox Inj) 40 mg Q24H SQ 02/21/17 05:00 03/23/17 04:59 02/21/17 05:45 40 MG Ondansetron HCl (Zofran Inj) 4 mg Q6H PRN IV 02/20/17 15:30 03/22/17 15:29 Hydromorphone HCl (Dilaudid Inj) 0.25 mg Q20M PRN IV 02/20/17 15:30 03/06/17 15:29 Hydromorphone HCl (Dilaudid Inj) 0.5 mg Q20M PRN IV 02/20/17 15:30 03/06/17 15:29 Sodium Chloride 1,000 ml @ 50 mls/hr Q20H ONCE IV 02/21/17 07:15 02/22/17 03:14 02/21/17 07:05 50 MLS/HR
[2017-02-21] MEDS: PRAVASTATIN SOD 20 MG TAB PO SCH (20:59)
[2017-02-21] MEDS: DOCUSATE SODIUM/SENNA 50/8.6MG TAB PO SCH (21:00)
[2017-02-22] MEDS: CLONIDINE HCL 0.1 MG TAB PO PRN (00:23)
[2017-02-22 03:38] VITALS: BP 134/74
[2017-02-22] MEDS: ENOXAPARIN 40 MG/0.4 ML SYR SQ SCH (05:40)
[2017-02-22 05:59] LABS: BASO % 0.2 %; BASO ABS # 0.02 K/uL (0-0.2); COMPLETE YES; EOS % 1.5 %; HEMATOCRIT 32.1 % (37-47); IG% 0.3 %; LYMPH % 10.7 %; LYMPH ABS # 0.97 K/uL (1.2-3.4); MEAN CELL VOLUME 93.3 fL (80-100); MEAN CORPUSCULAR HEMOGLOBIN 29.4 pg (25-34); MEAN CORPUSCULAR HGB CONC 31.5 g/dl (32-36); MEAN PLATELET VOLUME 11.3 fL (7.4-10.4); MONO % 9.9 %; NEUT % 77.4 %; PLATELET COUNT 130 K/uL (130-400); RED BLOOD COUNT 3.44 M/uL (4.2-5.4); WHITE BLOOD COUNT 9.05 K/uL (4.8-10.8)
[2017-02-22 06:31] LABS: BUN/CREATININE RATIO 20.2 (10-20); CALCIUM 7.6 mg/dl (8.5-10.1); CREATININE 1.3 mg/dl (0.60-1.20); POTASSIUM 3.9 mmol/L (3.5-5.1)
--- NOTE | 2017-02-22 06:56 | Orthopedic Progress Note ---
Orthopedic Progress Note Date of Service Feb 22, 2017. Subjective Post OP Day: 2 Additional Notes: Pt sleeping when entering room. Easily awoken. Having some soreness in the right thigh but no other complaints. Objective calves soft nontender, N/V intact, dressing C/D/I, toes mobile Thigh swollen but not tense. Date Time Temp Pulse Resp B/P (MAP) Pulse Ox O2 Delivery O2 Flow Rate FiO2 02/22/17 03:38 134/74 (94) 02/21/17 23:20 Nasal Cannula 2.0 Humidified Oxygen 02/21/17 22:51 37.2 87 16 179/79 (112) 98 Nasal Cannula 2.0 Humidified Oxygen 02/21/17 15:23 36.3 72 16 168/78 (108) 98 Nasal Cannula 2.0 Humidified Oxygen 02/21/17 15:05 98 Nasal Cannula 2.0 Humidified Air 02/21/17 13:14 72 97 02/21/17 11:15 Nasal Cannula 2.0 02/21/17 11:13 36.4 78 16 152/76 (101) 95 2.0 02/21/17 07:12 36.7 71 16 154/74 (100) 97 2.0 02/21/17 07:00 Nasal Cannula 2.0 Laboratory Results 24 Hours: Test 02/22/17 05:15 White Blood Count 9.05 K/uL Red Blood Count 3.44 M/uL Hemoglobin 10.1 g/dL Hematocrit 32.1 % Mean Corpuscular Volume 93.3 fL Mean Corpuscular Hemoglobin 29.4 pg Mean Corpuscular Hemoglobin Concent 31.5 g/dl Platelet Count 130 K/uL Mean Platelet Volume 11.3 fL Neutrophils (%) (Auto) 77.4 % Lymphocytes (%) (Auto) 10.7 % Monocytes (%) (Auto) 9.9 % Eosinophils (%) (Auto) 1.5 % Basophils (%) (Auto) 0.2 % Neutrophils # (Auto) 6.99 K/uL Lymphocytes # (Auto) 0.97 K/uL Monocytes # (Auto) 0.90 K/uL Eosinophils # (Auto) 0.14 K/uL Basophils # (Auto) 0.02 K/uL Assessment & Plan Assessment: 87 y/o female POD #2 S/P Right intertrochanteric nail. Plan: 1. Med Management 2. PT/OT - partial weight bearing 3. DVT prop - Lovenox. Resume Plavix as per Med Service 4. Discharge - uncertain Inhouse Planning Pain Management: Ultram, Dilaudid DVT Prophylaxis: SCDs, Lovenox, other (Plavix) Discharge Planning Discharge Planning: uncertain
--- NOTE | 2017-02-22 06:59 | Consultant Recommendations ---
Thread Checker Recommendations Date of Service Feb 22, 2017. Thread Checker Recommendations [facility] [place] [facility] DISCHARGE INSTRUCTIONS: HIP FRACTURE SELF CARE INSTRUCTIONS: A. You are to ambulate with a walker or crutches for approximately 6 weeks. B. You are PARTIAL WEIGHT BEARING on your operative lower extremity for at least 4 - 6 weeks. C. Wear low heeled shoes with non-slip soles D. Be sure that your floors are free of things that could trip you throw rugs, electrical cords, and small objects. Avoid wet and waxed floors, especially with crutches/walker/cane. E. Try to walk several times a day with rest periods between. F. You may shower 48 hours after surgery and get the incision area wet, but DO NOT soak or submerge incision area in water. (No baths, swimming pools, hot tubs ) G. You may have a large, band-aid like dressing over your incision (Aquacel). This will remain on your incision for 7 days, and then can be removed. You CAN shower with this on. If incision is leaking through the dressing, please call the office . H. Do NOT apply soap or any ointment/lotions directly over incision. I. You may use ice as needed to operative site. SPECIAL CARE INSTRUCTIONS: VERY IMPORTANT TO READ AND REVIEW A. You may be at risk for phlebitis or blood clots. a. Wear surgical stockings (DARNO hose) for 2 weeks after surgery to improve circulation and reduce swelling. b. Take LOVENOX 40mg SQ daily for 4 weeks or as directed. (Plavix as directed by your Primary Care Physician) This is your blood thinner. c. If you are on Coumadin- you will have daily/weekly blood work to monitor your levels. This will be done by either your family physician/ switch operators supervisor (if you are on Coumadin chronically) versus your orthopedic surgeon. Expect a phone call the day of or the day after your blood work is drawn to adjust your dose accordingly. B. There are a few signs you need to watch for after you are home. Call [facility] at [phone] if you experience any of the following: a. If you have a temperature of 101 degrees or higher. b. Sudden increase in pain in your hip not relieved by rest or pain medication. c. Any fluid or drainage from the incision; redness of the incision. d. Shortness of breath or chest pain. B. Please call [facility] at [phone] if you have any questions or concerns about your operation or recovery. C. Call your physician if: a. Temperature is greater than 101 degrees (F). b. Pain is not relieved by prescribed pain medications. c. Increase drainage or redness from incision. d. Unanswered questions or concerns. D. Pain Medication: a. You will be prescribed pain medication upon discharge that should last till your first post-operative appointment. b. If you experience nausea and/or skin rash, discontinue this medication and contact our office for an alternative medication. c. Caution- narcotic pain medication can cause constipation. FOLLOW UP VISIT: Please call [facility] at [phone] to schedule a follow up appointment 10-14 days from the date of your surgery date.
[2017-02-22 07:03] VITALS: BP 167/72; PULSE 75; TEMP 37; O2SAT 94
[2017-02-22] MEDS: LORATADINE 10 MG TAB PO SCH (09:12)
[2017-02-22] MEDS: DONEPEZIL HCL 10 MG TAB PO SCH (09:12)
[2017-02-22] MEDS: CARBIDOPA/LEVODOPA 25/100MG TAB PO SCH ×3 (09:13→20:35)
--- NOTE | 2017-02-22 14:49 | Progress Note ---
Medicine Progress Note Date & Time of Visit: Feb 22, 2017 at 14:43. Subjective seen with son Pranay at bedside patient comfortable, easily rousable from sleep states she fees fine overall has some pain on the right hip when moving also reports cough, non productive, but no dyspnea, chest pain, nausea, dizziness no other symptoms Objective Last 8 Hrs Date Time Temp Pulse Resp B/P (MAP) Pulse Ox O2 Delivery O2 Flow Rate FiO2 02/22/17 10:15 Nasal Cannula 2.0 02/22/17 07:03 37.0 75 17 167/72 (103) 94 Nasal Cannula 2.0 Physical Exam: General- oriented x 2, not in distress, speaks in sentences with no effort Eyes- anicteric Neck- no JVD Lungs- clear breath sounds bilaterally, no rales/wheezes Heart- regular rhythm; no murmur, normal rate Abdomen- normal bowel sounds, soft, nontender Extremities- no pretibial edema, no calf tenderness; peripheral pulses intact right hip: (+) dressing in place, no warmth/hematoma Neuro- alert, oriented x 2;no gross focal deficits Skin- warm & dry Laboratory Results: Last 24 Hours Test 02/22/17 05:15 White Blood Count 9.05 K/uL Red Blood Count 3.44 M/uL Hemoglobin 10.1 g/dL Hematocrit 32.1 % Mean Corpuscular Volume 93.3 fL Mean Corpuscular Hemoglobin 29.4 pg Mean Corpuscular Hemoglobin Concent 31.5 g/dl Platelet Count 130 K/uL Mean Platelet Volume 11.3 fL Neutrophils (%) (Auto) 77.4 % Lymphocytes (%) (Auto) 10.7 % Monocytes (%) (Auto) 9.9 % Eosinophils (%) (Auto) 1.5 % Basophils (%) (Auto) 0.2 % Neutrophils # (Auto) 6.99 K/uL Lymphocytes # (Auto) 0.97 K/uL Monocytes # (Auto) 0.90 K/uL Eosinophils # (Auto) 0.14 K/uL Basophils # (Auto) 0.02 K/uL RDW Standard Deviation 48.9 fL RDW Coefficient of Variation 14.3 % Immature Granulocyte % (Auto) 0.3 % Immature Granulocyte # (Auto) 0.03 K/uL Sodium Level 139 mmol/L Potassium Level 3.9 mmol/L Chloride Level 106 mmol/L Carbon Dioxide Level 26 mmol/L Anion Gap 7.0 mmol/L Blood Urea Nitrogen 26 mg/dl Creatinine 1.30 mg/dl Est Creatinine Clear Calc Drug Dose 30.2 ml/min Estimated GFR () 43.0 Estimated GFR (Non- 37.1 BUN/Creatinine Ratio 20.2 Random Glucose 180 mg/dl Calcium Level 7.6 mg/dl Assessment & Plan 87 year old female with history of Dementia, Parkinson,CKD 3, CVA presenting s/p Fall. RIGHT HIP FRACTURE S/P Mechanical fall -- s/p Trochanteric nailing 02/20/17 -- post op day 2 -- overall stable Hg decreased to 10 monitor Hg on Lovenox SC for DVT prophylaxis ACUTE BLOOD LOSS ANEMIA -- likely from Surgery -- monitor Hg PARKINSON'S DEMENTIA Continue Sinemet and Aricept Hx OF CVA / TIA Clopidogrel held for surgical procedure per ortho, may resume Plavix Continue Pravastatin Hx HTN No home meds PRN Clonidine monitor BP PRE DM a1c 6.4 BSGs stable DM diet VIT D DEFICIENCY on supplementation monitor as outpatient DVT PROPHYLAXIS Lovenox SCDs in place Disposition anticipate d/c to [facility] when accepted Continued [facility] stay due to: ambulation difficulties, other (Fixation of fractured hip 02/20/2017) Discharge planning: uncertain Current Inpatient Medications: Current Inpatient Medications Medications (Trade) Dose Ordered Sig/[place] Route Start Time Stop Time Status Last Admin Dose Admin Acetaminophen (Tylenol Tab) 650 mg Q4H PRN PO 02/20/17 05:00 03/22/17 04:59 02/21/17 12:28 650 MG Tramadol HCl (Ultram Tab) 25 mg Q6H PRN PO 02/20/17 06:00 03/22/17 05:59 02/22/17 10:23 25 MG Ondansetron HCl (Zofran Inj) 4 mg Q6H PRN IV 02/20/17 06:00 03/22/17 05:59 Hydromorphone HCl (Dilaudid Inj) 0.5 mg Q4H PRN IV 02/20/17 06:00 03/06/17 05:59 Carbidopa/Levodopa (Sinemet 25/ 100MG Tab) 2 tab TID PO 02/20/17 14:00 03/22/17 13:59 02/22/17 14:05 2 TAB Donepezil HCl (Aricept Tab) 10 mg DAILY PO 02/20/17 09:00 03/22/17 08:59 02/22/17 09:12 10 MG Loratadine (Claritin Tab) 10 mg DAILY PO 02/20/17 09:00 03/22/17 08:59 02/22/17 09:12 10 MG Pravastatin Sodium (Pravachol Tab) 20 mg HS PO 02/20/17 21:00 03/22/17 20:59 02/21/17 20:59 20 MG Naloxone HCl (Narcan Inj) 0.1 mg PRN PRN IV 02/20/17 08:00 03/22/17 07:59 Senna/Docusate Sodium (Senokot S Tab) 2 tab HS PO 02/20/17 21:00 03/22/17 20:59 02/21/17 21:00 2 TAB Polyethylene (Miralax Powder Packet) 17 gm DAILY PRN PO 02/20/17 08:00 03/22/17 07:59 Magnesium Hydroxide (Milk Of Magnesia Susp) 30 ml DAILY PRN PO 02/20/17 08:00 03/22/17 07:59 Bisacodyl (Dulcolax Supp) 10 mg DAILY PRN [place] 02/20/17 08:00 03/22/17 07:59 Sodium Biphosphate/ Sodium Phosphate (Fleet Enema) 132 ml PRN PRN [place] 02/20/17 08:00 Enoxaparin Sodium (Lovenox Inj) 40 mg Q24H SQ 02/21/17 05:00 03/23/17 04:59 02/22/17 05:40 40 MG Ondansetron HCl (Zofran Inj) 4 mg Q6H PRN IV 02/20/17 15:30 03/22/17 15:29 Hydromorphone HCl (Dilaudid Inj) 0.25 mg Q20M PRN IV 02/20/17 15:30 03/06/17 15:29 Hydromorphone HCl (Dilaudid Inj) 0.5 mg Q20M PRN IV 02/20/17 15:30 03/06/17 15:29 Clonidine HCl (Catapres Tab) 0.1 mg Q6H PRN PO 02/21/17 18:00 03/23/17 17:59 02/22/17 00:23 0.1 MG
[2017-02-22 14:50] VITALS: BP 157/69; PULSE 86; TEMP 37.2; O2SAT 96
[2017-02-22] MEDS ORDERED: CLOPIDOGREL BISULFATE 75 MG TAB PO ONE (15:04)
--- NOTE | 2017-02-22 15:45 | DIAGNOSTIC IMAGING REPORT ---
CHEST ONE VIEW PORTABLE CLINICAL HISTORY: r/o pneumonia dyspnea COMPARISON STUDY: No previous studies for comparison. FINDINGS: Increased density left lung base. This is consistent with that of a left basilar atelectatic change and/or effusion-type change. A trace left basilar effusion may be present. Right hemithorax is clear. IMPRESSION: Atelectatic and/or infiltrative change left base. Trace pleural effusion left base. Electronically signed by: Curly Hood M.D. 02/22/2017 3:43 PM Dictated Date/Time: 02/22/2017 3:42 PM
[2017-02-22] MEDS: MAGNESIUM HYDROXIDE SUSP 30 ML UDC PO PRN (18:44)
[2017-02-22] MEDS: DOCUSATE SODIUM/SENNA 50/8.6MG TAB PO SCH (20:34)
[2017-02-22] MEDS: PRAVASTATIN SOD 20 MG TAB PO SCH (20:43)
[2017-02-22 22:42] VITALS: BP 169/56; PULSE 72; TEMP 38.1; O2SAT 95
[2017-02-22 23:22] VITALS: BP 160/74; TEMP 37.6
[2017-02-22] MEDS: ACETAMINOPHEN 325 MG TAB PO PRN (23:35)
[2017-02-23] VITALS (10 sets, daily range): BP systolic 154–187; BP diastolic 70–92; PULSE 72–94; TEMP 36.9–37.4; O2SAT 88–97
[2017-02-23] MEDS: ENOXAPARIN 40 MG/0.4 ML SYR SQ SCH (05:23)
[2017-02-23 06:02] LABS: HEMATOCRIT 31.5 % (37-47); MEAN CELL VOLUME 93.8 fL (80-100); MEAN CORPUSCULAR HEMOGLOBIN 28.9 pg (25-34); MEAN CORPUSCULAR HGB CONC 30.8 g/dl (32-36); MEAN PLATELET VOLUME 11.1 fL (7.4-10.4); PLATELET COUNT 141 K/uL (130-400); RED BLOOD COUNT 3.36 M/uL (4.2-5.4); WHITE BLOOD COUNT 9.63 K/uL (4.8-10.8)
--- NOTE | 2017-02-23 07:49 | Clinical Documentation Query ---
CLINICAL DOCUMENTATION QUERY Dr. MORRISON, In your clinical opinion is this patient being managed for: ( ) Chronic kidney disease, stage 3 ( ) Other explanation of clinical findings (Please Explain) ( ) Unable to determine (Please Define) ( ) Need to Discuss ( ) Not Agree The medical record reflects the following clinical findings, treatment, and risk factors. Clinical Indicators: 87 yo female presenting with a R hip fracture. H/P indicates pt has chronic renal insufficiency with a baseline Cr of 1.4-1.5. Treatment: monitor PRP's Risk Factors: age, hx CVA Please clarify and document your clinical opinion in the progress notes and discharge summary. Terms such as "probable", "suspected", "likely", "questionable", "possible", or "still to be ruled out" are acceptable. IF IN AGREEMENT, YOU MUST DOCUMENT ABOVE DIAGNOSTIC STATEMENT IN DAILY PROGRESS NOTES AND DISCHARGE SUMMARY. This document is not part of the patient's record. Thank You, Yajaira Boyer, RN [phone]
[2017-02-23] MEDS: LEVOFLOXACIN 750 MG TAB PO SCH (08:02)
[2017-02-23] MEDS: LORATADINE 10 MG TAB PO SCH (08:03)
[2017-02-23] MEDS: DONEPEZIL HCL 10 MG TAB PO SCH (08:03)
[2017-02-23] MEDS: CARBIDOPA/LEVODOPA 25/100MG TAB PO SCH ×3 (08:04→20:33)
[2017-02-23] MEDS: CLOPIDOGREL BISULFATE 75 MG TAB PO SCH (08:05)
[2017-02-23] MEDS ORDERED: LACTULOSE SYRUP 20 GM/30 ML UDC PO ONE (08:42)
[2017-02-23 08:43] LABS: BUN/CREATININE RATIO 19.2 (10-20); CREATININE 1.3 mg/dl (0.60-1.20); POTASSIUM 4.1 mmol/L (3.5-5.1)
[2017-02-23] MEDS ORDERED: BISACODYL 10 MG SUPP PR PRN (08:45)
[2017-02-23] MEDS ORDERED: LACTULOSE SYRUP 10 GM/15 ML BTL 473 ML PO PRN (08:45)
[2017-02-23 08:46] LABS: CALCIUM 7.8 mg/dl (8.5-10.1)
[2017-02-23] MEDS ORDERED: LACTULOSE SYRUP 10 GM/15 ML BTL 473 ML PO STA (08:53)
[2017-02-23] MEDS: ACETAMINOPHEN 325 MG TAB PO PRN (12:28)
[2017-02-23 12:33] LABS: URINE APPEARANCE CLEAR (CLEAR); URINE BILIRUBIN NEG (NEG); URINE COLOR YELLOW; URINE NITRITE NEG (NEG); URINE SPECIFIC GRAVITY 1.015 (1.000-1.030); UROBILINOGEN NEG (NEG)
[2017-02-23 12:42] LABS: MANUAL MICROSCOPIC REQUIRED? NO; REVIEW REQ? NO
--- NOTE | 2017-02-23 13:25 | Orthopedic Progress Note ---
Orthopedic Progress Note Date of Service Feb 23, 2017. Subjective Post OP Day: 3 Reports: feeling well, pain controlled w PO medications, Denies: complaints Additional Notes: Pt sitting up in chair eating her lunch. States that PT came by and worked with her earlier this AM. Pt in good spirits. States that she's having very little pain. Objective calves soft nontender, N/V intact, dressing C/D/I, toes mobile Thigh with swelling but soft and NT. No overt erythema. Date Time Temp Pulse Resp B/P (MAP) Pulse Ox O2 Delivery O2 Flow Rate FiO2 02/23/17 09:54 93 Nasal Cannula 02/23/17 07:48 36.9 72 16 168/72 (104) 93 Nasal Cannula 02/23/17 07:40 95 Nasal Cannula 2.0 Humidified Oxygen 02/23/17 03:33 37.4 154/70 (98) 02/22/17 23:30 Nasal Cannula 2.0 Humidified Oxygen 02/22/17 23:22 37.6 160/74 (102) 02/22/17 22:42 38.1 72 20 169/56 (93) 95 Nasal Cannula 2.0 02/22/17 15:30 Nasal Cannula 2.0 02/22/17 14:50 37.2 86 18 157/69 (98) 96 Nasal Cannula 2.0 Laboratory Results 24 Hours: Test 02/23/17 05:20 Hematocrit 31.5 % Hemoglobin 9.7 g/dL Assessment & Plan Assessment: 87 y/o female POD #3 S/P Right intertrochanteric nail. Plan: Med Management - Fever last night; afeb since then PT/OT - partial weight bearing RLE DVT prop - Lovenox / Plavix Discharge - Planning for [facility] Pt stable orthopedically. Ortho will sign off at this time. Instructions placed in EMR. Please call with any questions. Inhouse Planning Pain Management: Ultram, Dilaudid DVT Prophylaxis: SCDs, Lovenox, other (Plavix) Discharge Planning Discharge Planning: rehab hospital
[2017-02-23] MEDS: MAGNESIUM HYDROXIDE SUSP 30 ML UDC PO PRN (19:56)
[2017-02-23] MEDS: DOCUSATE SODIUM/SENNA 50/8.6MG TAB PO SCH (20:33)
[2017-02-23] MEDS: PRAVASTATIN SOD 20 MG TAB PO SCH (20:33)
[2017-02-23] MEDS: CLONIDINE HCL 0.1 MG TAB PO PRN (23:09)
[2017-02-24] VITALS (8 sets, daily range): BP systolic 112–163; BP diastolic 61–74; PULSE 79–96; TEMP 36.1–36.9; O2SAT 92–98
[2017-02-24] MEDS ORDERED: VANCOMYCIN CONSULT ACTIVE PRN (07:50)
[2017-02-24] MEDS: ENOXAPARIN 30 MG/0.3 ML SYR SQ SCH (08:32)
[2017-02-24] MEDS: LORATADINE 10 MG TAB PO SCH (08:33)
[2017-02-24] MEDS: DONEPEZIL HCL 10 MG TAB PO SCH (08:33)
[2017-02-24] MEDS: CLOPIDOGREL BISULFATE 75 MG TAB PO SCH (08:33)
[2017-02-24] MEDS: CARBIDOPA/LEVODOPA 25/100MG TAB PO SCH ×3 (08:33→21:38)
[2017-02-24 08:36] LABS: BASO % 0.1 %; BASO ABS # 0.01 K/uL (0-0.2); COMPLETE YES; HEMATOCRIT 32.1 % (37-47); IG% 0.4 %; LYMPH % 8.8 %; MEAN CELL VOLUME 93.6 fL (80-100); MEAN CORPUSCULAR HGB CONC 32.1 g/dl (32-36); MEAN PLATELET VOLUME 10.2 fL (7.4-10.4); MONO % 7.5 %; NEUT % 82.2 %; PLATELET COUNT 167 K/uL (130-400); RED BLOOD COUNT 3.43 M/uL (4.2-5.4)
[2017-02-24] MEDS ORDERED: VANCOMYCIN INJ 1,700 MG in SODIUM CHLORIDE 0.9% 500ML 500 ML IV ONE (08:45)
[2017-02-24 09:08] LABS: BUN/CREATININE RATIO 16.7 (10-20); CREATININE 1.2 mg/dl (0.60-1.20); POTASSIUM 4.2 mmol/L (3.5-5.1)
[2017-02-24 09:19] LABS: CALCIUM 8.2 mg/dl (8.5-10.1)
[2017-02-24] MEDS ORDERED: SODIUM CHLORIDE 0.9% 1000ML 1,000 ML IV SCH (10:00)
--- NOTE | 2017-02-24 10:13 | Pharmacy Progress Note ---
Pharmacy Antibiotic Consult Date of Service: Feb 24, 2017. Pharmacy Dosing Scope Pharmacy is consulted to initiate vancomycin IV dosing therapy, order appropriate labs and adjust drug dose/frequency. Subjective The patient is a 87 year old female admitted on Feb 20, 2017 at 04:59. Objective Height (Feet): 5 Height (Inches): 7.00 Weight (Kilograms): 68.000 Lab Results (24hrs): Test 02/23/17 11:00 02/24/17 08:22 Urine Color YELLOW Urine Appearance CLEAR (CLEAR) Urine pH 6.0 (4.5-7.5) Urine Specific [place] 1.015 (1.000-1.030) Urine Protein NEG (NEG) Urine Glucose (UA) NEG (NEG) Urine Ketones NEG (NEG) Urine Occult Blood NEG (NEG) Urine Nitrite NEG (NEG) Urine Bilirubin NEG (NEG) Urine Urobilinogen NEG (NEG) Urine Leukocyte Esterase NEG (NEG) White Blood Count 11.40 K/uL (4.8-10.8) Red Blood Count 3.43 M/uL (4.2-5.4) Hemoglobin 10.3 g/dL (12.0-16.0) Hematocrit 32.1 % (37-47) Mean Corpuscular Volume 93.6 fL (80-100) Mean Corpuscular Hemoglobin 30.0 pg (25-34) Mean Corpuscular Hemoglobin Concent 32.1 g/dl (32-36) Platelet Count 167 K/uL (130-400) Mean Platelet Volume 10.2 fL (7.4-10.4) Neutrophils (%) (Auto) 82.2 % Lymphocytes (%) (Auto) 8.8 % Monocytes (%) (Auto) 7.5 % Eosinophils (%) (Auto) 1.0 % Basophils (%) (Auto) 0.1 % Neutrophils # (Auto) 9.39 K/uL (1.4-6.5) Lymphocytes # (Auto) 1.00 K/uL (1.2-3.4) Monocytes # (Auto) 0.85 K/uL (0.11-0.59) Eosinophils # (Auto) 0.11 K/uL (0-0.5) Basophils # (Auto) 0.01 K/uL (0-0.2) RDW Standard Deviation 48.2 fL (36.4-46.3) RDW Coefficient of Variation 14.1 % (11.5-14.5) Immature Granulocyte % (Auto) 0.4 % Immature Granulocyte # (Auto) 0.04 K/uL (0.00-0.02) Sodium Level 140 mmol/L (136-145) Potassium Level 4.2 mmol/L (3.5-5.1) Chloride Level 103 mmol/L (98-107) Carbon Dioxide Level 31 mmol/L (21-32) Anion Gap 6.0 mmol/L (3-11) Blood Urea Nitrogen 20 mg/dl (7-18) Creatinine 1.20 mg/dl (0.60-1.20) Est Creatinine Clear Calc Drug Dose 32.7 ml/min Estimated GFR () 47.4 Estimated GFR (Non- 40.9 BUN/Creatinine Ratio 16.7 (10-20) Random Glucose 152 mg/dl (70-99) Calcium Level 8.2 mg/dl (8.5-10.1) Micro Results: Item Value Date Time Urine Culture Received 02/23/17 1100 Urine,Catheterized Pending Blood Culture - Preliminary Resulted 02/23/17 0832 Blood Gram Positive Cocci Blood Culture Received 02/23/17 0827 Blood Pending MRSA DNA Surveillance Screen - Final Complete 02/20/17 0910 Nasal Specimen Negative for MRSA by DNA Probe Assessment & Plan Patient started on levaquin (not consult) for possible pneumonia. Vancomycin now added for positive blood cultures (1/2 Gm+ cocci). Nasal swab negative for MRSA. Urine culture and 2nd set of blood cultures are pending. Vancomycin: * LD of vancomycin 1700 mg (~25 mg/kg) x 1 * Will start MD of vancomycin 1000 mg (~15 mg/kg) iv 24 hrs to achieve an estimated trough ~15-20 mcg/ml for bacteremia * Estimated kinetics: t1/2~22 hrs, ke~0.03 hr-1, CrCl ~33 ml/min * Will follow cultures and order trough as necessary if vancomycin is to be continued Pharmacy will continue to follow and will adjust dose/frequency as necessary. Thank you
--- NOTE | 2017-02-24 10:18 | Progress Note ---
Medicine Progress Note Date & Time of Visit: Feb 23, 2017 at 08:43. Subjective seen sitting up in bed, oriented x 2, alert states she has intermittent cough, cannot bring up phlegm, but no dyspnea (+) fever episode last night denies chest pain, abdominal pain, diarrhea no BM's yet no other symptoms Objective Last 8 Hrs Date Time Temp Pulse Resp B/P (MAP) Pulse Ox O2 Delivery O2 Flow Rate FiO2 02/23/17 07:48 36.9 72 16 168/72 (104) 93 Nasal Cannula 02/23/17 03:33 37.4 154/70 (98) Physical Exam: General- oriented x 2, not in distress, speaks in sentences with no effort Eyes- anicteric Neck- no JVD Lungs- clear breath sounds bilaterally, no rales/wheezes Heart- regular rhythm; no murmur, normal rate Abdomen- normal bowel sounds, soft, nontender Extremities- no pretibial edema, no calf tenderness; peripheral pulses intact right hip: (+) dressing in place, no warmth/hematoma Neuro- alert, oriented x 2;no gross focal deficits Skin- warm & dry Laboratory Results: Last 24 Hours Test 02/23/17 05:20 White Blood Count 9.63 K/uL Red Blood Count 3.36 M/uL Hemoglobin 9.7 g/dL Hematocrit 31.5 % Mean Corpuscular Volume 93.8 fL Mean Corpuscular Hemoglobin 28.9 pg Mean Corpuscular Hemoglobin Concent 30.8 g/dl RDW Standard Deviation 48.7 fL RDW Coefficient of Variation 14.3 % Platelet Count 141 K/uL Mean Platelet Volume 11.1 fL Date/Time Source Procedure Growth Status 02/23/17 08:32 Blood Blood Culture Pending Received 02/23/17 08:27 Blood Blood Culture Pending Received Assessment & Plan 87 year old female with history of Dementia, Parkinson,CKD 3, CVA presenting s/p Fall. RIGHT HIP FRACTURE S/P Mechanical fall -- s/p Trochanteric nailing 02/20/17 -- post op day 3 - (+) fever last night management as noted below -- Hg decreased to 10 monitor Hg 9.7 on Lovenox SC for DVT prophylaxis POSSIBLE PNEUMONIA Levaquin started ff up blood, urine, sputum cultures monitor ACUTE BLOOD LOSS ANEMIA -- likely from Surgery -- monitor Hg PARKINSON'S DEMENTIA Continue Sinemet and Aricept Hx OF CVA / TIA Plavix resumed Continue Pravastatin Hx HTN No home meds PRN Clonidine monitor BP PRE DM a1c 6.4 BSGs stable DM diet VIT D DEFICIENCY on supplementation monitor as outpatient DVT PROPHYLAXIS Lovenox SCDs in place Disposition anticipate d/c to [facility] when afebrile, cultures finalize Continued [facility] stay due to: ambulation difficulties, other (Fixation of fractured hip 02/20/2017) Discharge planning: uncertain Current Inpatient Medications: Current Inpatient Medications Medications (Trade) Dose Ordered Sig/[place] Route Start Time Stop Time Status Last Admin Dose Admin Acetaminophen (Tylenol Tab) 650 mg Q4H PRN PO 02/20/17 05:00 03/22/17 04:59 02/22/17 23:35 650 MG Tramadol HCl (Ultram Tab) 25 mg Q6H PRN PO 02/20/17 06:00 03/22/17 05:59 02/22/17 10:23 25 MG Ondansetron HCl (Zofran Inj) 4 mg Q6H PRN IV 02/20/17 06:00 03/22/17 05:59 Hydromorphone HCl (Dilaudid Inj) 0.5 mg Q4H PRN IV 02/20/17 06:00 03/06/17 05:59 Carbidopa/Levodopa (Sinemet 25/ 100MG Tab) 2 tab TID PO 02/20/17 14:00 03/22/17 13:59 02/23/17 08:04 2 TAB Donepezil HCl (Aricept Tab) 10 mg DAILY PO 02/20/17 09:00 03/22/17 08:59 02/23/17 08:03 10 MG Loratadine (Claritin Tab) 10 mg DAILY PO 02/20/17 09:00 03/22/17 08:59 02/23/17 08:03 10 MG Pravastatin Sodium (Pravachol Tab) 20 mg HS PO 02/20/17 21:00 03/22/17 20:59 02/22/17 20:43 20 MG Naloxone HCl (Narcan Inj) 0.1 mg PRN PRN IV 02/20/17 08:00 03/22/17 07:59 Senna/Docusate Sodium (Senokot S Tab) 2 tab HS PO 02/20/17 21:00 03/22/17 20:59 02/22/17 20:34 2 TAB Polyethylene (Miralax Powder Packet) 17 gm DAILY PRN PO 02/20/17 08:00 03/22/17 07:59 Magnesium Hydroxide (Milk Of Magnesia Susp) 30 ml DAILY PRN PO 02/20/17 08:00 03/22/17 07:59 02/22/17 18:44 30 ML Bisacodyl (Dulcolax Supp) 10 mg DAILY PRN LA 02/20/17 08:00 03/22/17 07:59 Sodium Biphosphate/ Sodium Phosphate (Fleet Enema) 132 ml PRN PRN LA 02/20/17 08:00 Enoxaparin Sodium (Lovenox Inj) 40 mg Q24H SQ 02/21/17 05:00 03/23/17 04:59 02/23/17 05:23 40 MG Ondansetron HCl (Zofran Inj) 4 mg Q6H PRN IV 02/20/17 15:30 03/22/17 15:29 Hydromorphone HCl (Dilaudid Inj) 0.25 mg Q20M PRN IV 02/20/17 15:30 03/06/17 15:29 Hydromorphone HCl (Dilaudid Inj) 0.5 mg Q20M PRN IV 02/20/17 15:30 03/06/17 15:29 Clonidine HCl (Catapres Tab) 0.1 mg Q6H PRN PO 02/21/17 18:00 03/23/17 17:59 02/22/17 00:23 0.1 MG Clopidogrel Bisulfate (plAVix TAB) 75 mg QAM PO 02/23/17 09:00 03/25/17 08:59 02/23/17 08:05 75 MG Levofloxacin (Levaquin Tab) 750 mg Q2D@0800 PO 02/23/17 08:00 03/02/17 07:59 02/23/17 08:02 750 MG
--- NOTE | 2017-02-24 10:27 | Progress Note ---
Medicine Progress Note Date & Time of Visit: Feb 24, 2017 at 10:19. Subjective sitting up in bed, comfortable Pranay, son, at bedside patient is awake, alert, conversant, oriented appears brighter today reports mild right knee pain denies dyspnea, cough less no chills (+) BM last night appetite fair no other symptoms Objective Last 8 Hrs Date Time Temp Pulse Resp B/P (MAP) Pulse Ox O2 Delivery O2 Flow Rate FiO2 02/24/17 08:15 94 Nasal Cannula 2.0 02/24/17 07:55 36.8 80 20 162/72 (102) 94 Nasal Cannula 2.0 Physical Exam: General- oriented x 2, not in distress, speaks in sentences with no effort Eyes- anicteric Neck- no JVD Lungs- no rales/wheezes bilaterally, good air entry Heart- regular rhythm; no murmur, normal rate Abdomen- normal bowel sounds, soft, nontender Extremities- right knee: no swelling/hematoma/erythema/tenderness no pretibial edema, no calf tenderness; peripheral pulses intact right hip: (+) dressing in place, no warmth/hematoma Neuro- alert, oriented x 2;no gross focal deficits Skin- warm & dry Laboratory Results: Last 24 Hours Test 02/23/17 11:00 02/24/17 08:22 Urine Color YELLOW Urine Appearance CLEAR Urine pH 6.0 Urine Specific Beatty 1.015 Urine Protein NEG Urine Glucose (UA) NEG Urine Ketones NEG Urine Occult Blood NEG Urine Nitrite NEG Urine Bilirubin NEG Urine Urobilinogen NEG Urine Leukocyte Esterase NEG White Blood Count 11.40 K/uL Red Blood Count 3.43 M/uL Hemoglobin 10.3 g/dL Hematocrit 32.1 % Mean Corpuscular Volume 93.6 fL Mean Corpuscular Hemoglobin 30.0 pg Mean Corpuscular Hemoglobin Concent 32.1 g/dl Platelet Count 167 K/uL Mean Platelet Volume 10.2 fL Neutrophils (%) (Auto) 82.2 % Lymphocytes (%) (Auto) 8.8 % Monocytes (%) (Auto) 7.5 % Eosinophils (%) (Auto) 1.0 % Basophils (%) (Auto) 0.1 % Neutrophils # (Auto) 9.39 K/uL Lymphocytes # (Auto) 1.00 K/uL Monocytes # (Auto) 0.85 K/uL Eosinophils # (Auto) 0.11 K/uL Basophils # (Auto) 0.01 K/uL RDW Standard Deviation 48.2 fL RDW Coefficient of Variation 14.1 % Immature Granulocyte % (Auto) 0.4 % Immature Granulocyte # (Auto) 0.04 K/uL Sodium Level 140 mmol/L Potassium Level 4.2 mmol/L Chloride Level 103 mmol/L Carbon Dioxide Level 31 mmol/L Anion Gap 6.0 mmol/L Blood Urea Nitrogen 20 mg/dl Creatinine 1.20 mg/dl Est Creatinine Clear Calc Drug Dose 32.7 ml/min Estimated GFR () 47.4 Estimated GFR (Non- 40.9 BUN/Creatinine Ratio 16.7 Random Glucose 152 mg/dl Calcium Level 8.2 mg/dl Date/Time Source Procedure Growth Status 02/23/17 11:00 Urine,Catheterized Urine Culture Pending Received Assessment & Plan 87 year old female with history of Dementia, Parkinson,CKD 3, CVA presenting s/p Fall. RIGHT HIP FRACTURE S/P Mechanical fall -- s/p Trochanteric nailing 02/20/17 -- post op day 4 - (+) fever 02/22/17 afebrile since (+) increase in WBC today management as noted below -- Hg decreased to 10 stable at ~10 so far on Lovenox SC for DVT prophylaxis -- PT/OT in progress anticipate d/c to [facility] when afebrile, cultures finalize FEVER POSSIBLE LEFT BASE PNEUMONIA CXR possible L base PNA Levaquin started ff up sputum cultures cough improving, afebrile, WBC slightly elevated continue Levaquin, add Nebs POSSIBLE BACTEREMIA blood culture 1/2 bottles: gram positive cocci Vancomycin added ff up cultures RIGHT KNEE PAIN check xray ice packs PRN ACUTE BLOOD LOSS ANEMIA -- likely from Surgery -- Hg stable ~10 HTN no history of Hypertension BP >150 for 3 days now start Amlodipine 5mg po daily monitor PARKINSON'S DEMENTIA Continue Sinemet and Aricept Hx OF CVA / TIA Plavix resumed Continue Pravastatin PRE DM a1c 6.4 BSGs stable DM diet VIT D DEFICIENCY on supplementation monitor as outpatient DVT PROPHYLAXIS Lovenox SCDs in place Disposition anticipate d/c to [facility] when afebrile, cultures finalize Continued [facility] stay due to: ambulation difficulties, other (Fixation of fractured hip 02/20/2017) Discharge planning: uncertain Current Inpatient Medications: Current Inpatient Medications Medications (Trade) Dose Ordered Sig/[place] Route Start Time Stop Time Status Last Admin Dose Admin Acetaminophen (Tylenol Tab) 650 mg Q4H PRN PO 02/20/17 05:00 03/22/17 04:59 02/23/17 12:28 650 MG Tramadol HCl (Ultram Tab) 25 mg Q6H PRN PO 02/20/17 06:00 03/22/17 05:59 02/22/17 10:23 25 MG Ondansetron HCl (Zofran Inj) 4 mg Q6H PRN IV 02/20/17 06:00 03/22/17 05:59 Hydromorphone HCl (Dilaudid Inj) 0.5 mg Q4H PRN IV 02/20/17 06:00 03/06/17 05:59 Carbidopa/Levodopa (Sinemet 25/ 100MG Tab) 2 tab TID PO 02/20/17 14:00 03/22/17 13:59 02/24/17 08:33 2 TAB Donepezil HCl (Aricept Tab) 10 mg DAILY PO 02/20/17 09:00 03/22/17 08:59 02/24/17 08:33 10 MG Loratadine (Claritin Tab) 10 mg DAILY PO 02/20/17 09:00 03/22/17 08:59 02/24/17 08:33 10 MG Pravastatin Sodium (Pravachol Tab) 20 mg HS PO 02/20/17 21:00 03/22/17 20:59 02/23/17 20:33 20 MG Naloxone HCl (Narcan Inj) 0.1 mg PRN PRN IV 02/20/17 08:00 03/22/17 07:59 Senna/Docusate Sodium (Senokot S Tab) 2 tab HS PO 02/20/17 21:00 03/22/17 20:59 02/23/17 20:33 2 TAB Polyethylene (Miralax Powder Packet) 17 gm DAILY PRN PO 02/20/17 08:00 03/22/17 07:59 02/23/17 12:28 17 GM Magnesium Hydroxide (Milk Of Magnesia Susp) 30 ml DAILY PRN PO 02/20/17 08:00 03/22/17 07:59 02/23/17 19:56 30 ML Bisacodyl (Dulcolax Supp) 10 mg DAILY PRN SD 02/20/17 08:00 03/22/17 07:59 Sodium Biphosphate/ Sodium Phosphate (Fleet Enema) 132 ml PRN PRN SD 02/20/17 08:00 Ondansetron HCl (Zofran Inj) 4 mg Q6H PRN IV 02/20/17 15:30 03/22/17 15:29 Hydromorphone HCl (Dilaudid Inj) 0.25 mg Q20M PRN IV 02/20/17 15:30 03/06/17 15:29 Hydromorphone HCl (Dilaudid Inj) 0.5 mg Q20M PRN IV 02/20/17 15:30 03/06/17 15:29 Clonidine HCl (Catapres Tab) 0.1 mg Q6H PRN PO 02/21/17 18:00 03/23/17 17:59 02/23/17 23:09 0.1 MG Clopidogrel Bisulfate (plAVix TAB) 75 mg QAM PO 02/23/17 09:00 03/25/17 08:59 02/24/17 08:33 75 MG Levofloxacin (Levaquin Tab) 750 mg Q2D@0800 PO 02/23/17 08:00 03/02/17 07:59 02/23/17 08:02 750 MG Lactulose (Chronulac Syrup) 15 gm TID PRN PO 02/23/17 08:45 03/25/17 08:44 Enoxaparin Sodium (Lovenox Inj) 30 mg Q24H SQ 02/24/17 09:00 03/26/17 08:59 02/24/17 08:32 30 MG Vancomycin HCl (Consult) 1 ea UD PRN N/A 02/24/17 07:50 03/26/17 07:49 Vancomycin HCl 1700 mg/Sodium Chloride 534 ml @ 200 mls/hr TODAY@0845 ONCE IV 02/24/17 08:45 02/24/17 11:25 02/24/17 08:56 200 MLS/HR Amlodipine Besylate (Norvasc Tab) 5 mg QAM PO 02/25/17 09:00 03/27/17 08:59 UNV Amlodipine Besylate (Norvasc Tab) 5 mg 0958 ONCE PO 02/24/17 09:58 02/24/17 09:59 UNV Sodium Chloride 1,000 ml @ 60 mls/hr [id number] IV 02/24/17 10:00 02/25/17 02:39 UNV Vancomycin HCl 1000 mg/Sodium Chloride 270 ml @ 125 mls/hr Q24H IV 02/25/17 08:00 03/10/17 07:59
[2017-02-24] MEDS ORDERED: AMLODIPINE BESYLATE 5 MG TAB PO ONE (10:30)
--- NOTE | 2017-02-24 12:03 | DIAGNOSTIC IMAGING REPORT ---
RIGHT KNEE 1 OR 2 VIEWS ROUTINE CLINICAL HISTORY: r/o fracture Right trauma. Pain. COMPARISON: None. DISCUSSION: Considerable degenerative change medial joint compartment. Moderate degenerative change patellofemoral joint. Minimal chondrocalcinosis. Small joint effusion. No significant fat fluid level. There is no evidence for soft tissue swelling. IMPRESSION: Considerable degenerative change. Minimal chondrocalcinosis. Small joint effusion. Electronically signed by: Curly Hood M.D. 02/24/2017 12:02 PM Dictated Date/Time: 02/24/2017 12:01 PM
[2017-02-24] MEDS ORDERED: BOOST VANILLA PO SCH ×4 (14:00→21:00)
[2017-02-24] MEDS: LEVALBUTEROL 1.25MG/0.5ML NEB INH SCH ×2 (14:39→20:00)
[2017-02-24] MEDS: ACETAMINOPHEN 325 MG TAB PO PRN (15:30)
[2017-02-24] MEDS: BOOST VANILLA PO SCH ×2 (17:52)
[2017-02-24] MEDS: DOCUSATE SODIUM/SENNA 50/8.6MG TAB PO SCH (21:37)
[2017-02-24] MEDS: PRAVASTATIN SOD 20 MG TAB PO SCH (21:37)
[2017-02-25] VITALS (9 sets, daily range): BP systolic 126–184; BP diastolic 62–80; PULSE 76–88; TEMP 36.8–37.2; O2SAT 94–98
[2017-02-25] MEDS: LEVALBUTEROL 1.25MG/0.5ML NEB INH SCH ×4 (01:51→20:05)
[2017-02-25 06:55] LABS: BASO % 0.2 %; BASO ABS # 0.02 K/uL (0-0.2); COMPLETE YES; EOS % 2.1 %; HEMATOCRIT 29.8 % (37-47); IG% 0.4 %; LYMPH % 9.3 %; LYMPH ABS # 0.96 K/uL (1.2-3.4); MEAN CELL VOLUME 93.1 fL (80-100); MEAN CORPUSCULAR HGB CONC 32.2 g/dl (32-36); MEAN PLATELET VOLUME 10.4 fL (7.4-10.4); MONO % 8.2 %; NEUT % 79.8 %; PLATELET COUNT 181 K/uL (130-400); WHITE BLOOD COUNT 10.36 K/uL (4.8-10.8)
[2017-02-25 07:30] LABS: BUN/CREATININE RATIO 19.7 (10-20); CALCIUM 8.1 mg/dl (8.5-10.1); CREATININE 0.99 mg/dl (0.60-1.20)
[2017-02-25] MEDS ORDERED: VANCOMYCIN INJ 1,000 MG in SODIUM CHLORIDE 0.9% 250ML 250 ML IV SCH (08:00)
[2017-02-25] MEDS: CLOPIDOGREL BISULFATE 75 MG TAB PO SCH (08:47)
[2017-02-25] MEDS: ENOXAPARIN 30 MG/0.3 ML SYR SQ SCH (08:48)
[2017-02-25] MEDS: LEVOFLOXACIN 750 MG TAB PO SCH (08:48)
[2017-02-25] MEDS: BOOST VANILLA PO SCH ×6 (08:48→17:45)
[2017-02-25] MEDS: LORATADINE 10 MG TAB PO SCH (08:48)
[2017-02-25] MEDS: DONEPEZIL HCL 10 MG TAB PO SCH (08:48)
[2017-02-25] MEDS: CARBIDOPA/LEVODOPA 25/100MG TAB PO SCH ×3 (08:48→21:24)
[2017-02-25] MEDS: AMLODIPINE BESYLATE 5 MG TAB PO SCH (08:48)
--- NOTE | 2017-02-25 12:00 | Medical Consult ---
Consultation Date of Consultation: Feb 25, 2017. Attending Physician: Johnny Payne MD Reason for Consultation: possible bacteremia History of Present Illness Patient is an 87-year-old female who was admitted to hospital with concerns right hip fracture. The patient was attempting to get out of bed and on her floor and fell on her right side. She had an x-ray completed a [facility] the emergency department which showed right intertrochanteric hip fracture. She was transferred to [facility] to be evaluated by Orthopedics. Since admission the patient trochanteric nailing completed. She overall had been doing well following the procedure, but she did have a fever to 38.1 C on . That time, the patient blood cultures drawn and had a chest x-ray completed. Her x-ray showed atelectatic and/or infiltrative change of the left base. Blood cultures are growing coag-negative staph in 1/2 cultures. Repeat blood cultures are pending. Urine culture showed no growth. A right knee x-ray showed degenerative changes and a small joint effusion. Patient was placed on IV vancomycin and p.o. Levaquin for concerns of bacteremia and pneumonia. The patient's white blood cell count has been stable. The highest her white blood cell count went was 11.40. Her creatinine has improved throughout the admission and was 0.99 today. Past Medical/Surgical History Medical Problems: (1) Fracture of right hip Surgical Hx: Right hip trochanteric nailing Family History Noncontributory Social History Smoking Status: Never Smoker Allergies Coded Allergies: Aspirin (Verified Allergy, Unknown, 0, 02/20/17) Penicillins (Unverified Allergy, Unknown, RASH, 03/04/15) Home Medications Reported Home Medications Medications Dose Route/Sig Max Daily Dose Days Date Category Claritin (Loratadine) 10 Mg Tab 10 Mg PO DAILY 02/20/17 Reported Centrum (Multiple Vitamins W/ Minerals) 1 Chw Chw 1 DAILY 02/20/17 Reported Kp Vitamin D (Cholecalciferol) 1,000 Unit Cap 1 Cap PO DAILY 90 02/20/17 Reported Sinemet 25MG/100MG (Carbidopa/Levodopa) Tab 2 Tab PO TID 02/20/17 Reported Aricept (Donepezil Hydrochloride) 10 Mg Tab 10 Mg PO DAILY 02/20/17 Reported Pravachol (Pravastatin Sodium) 20 Mg Tab 20 Mg PO HS 02/20/17 Reported Os-Vinicius 500 Plus D (Calcium/Vitamin D) Tab 1 Tab PO BID 02/20/17 Reported Plavix (Clopidogrel Bisulfate) 75 Mg Tab 75 Mg PO DAILY 05/02/09 Rx Current Inpatient Medications Current Inpatient Medications Medications (Trade) Dose Ordered Sig/[place] Route Start Time Stop Time Status Last Admin Dose Admin Acetaminophen (Tylenol Tab) 650 mg Q4H PRN PO 02/20/17 05:00 03/22/17 04:59 02/24/17 15:30 650 MG Tramadol HCl (Ultram Tab) 25 mg Q6H PRN PO 02/20/17 06:00 03/22/17 05:59 02/22/17 10:23 25 MG Ondansetron HCl (Zofran Inj) 4 mg Q6H PRN IV 02/20/17 06:00 03/22/17 05:59 Hydromorphone HCl (Dilaudid Inj) 0.5 mg Q4H PRN IV 02/20/17 06:00 03/06/17 05:59 Carbidopa/Levodopa (Sinemet 25/ 100MG Tab) 2 tab TID PO 02/20/17 14:00 03/22/17 13:59 02/25/17 08:48 2 TAB Donepezil HCl (Aricept Tab) 10 mg DAILY PO 02/20/17 09:00 03/22/17 08:59 02/25/17 08:48 10 MG Loratadine (Claritin Tab) 10 mg DAILY PO 02/20/17 09:00 03/22/17 08:59 02/25/17 08:48 10 MG Pravastatin Sodium (Pravachol Tab) 20 mg HS PO 02/20/17 21:00 03/22/17 20:59 02/24/17 21:37 20 MG Naloxone HCl (Narcan Inj) 0.1 mg PRN PRN IV 02/20/17 08:00 03/22/17 07:59 Senna/Docusate Sodium (Senokot S Tab) 2 tab HS PO 02/20/17 21:00 03/22/17 20:59 02/23/17 20:33 2 TAB Polyethylene (Miralax Powder Packet) 17 gm DAILY PRN PO 02/20/17 08:00 03/22/17 07:59 02/23/17 12:28 17 GM Magnesium Hydroxide (Milk Of Magnesia Susp) 30 ml DAILY PRN PO 02/20/17 08:00 03/22/17 07:59 02/23/17 19:56 30 ML Bisacodyl (Dulcolax Supp) 10 mg DAILY PRN GA 02/20/17 08:00 03/22/17 07:59 Sodium Biphosphate/ Sodium Phosphate (Fleet Enema) 132 ml PRN PRN GA 02/20/17 08:00 Ondansetron HCl (Zofran Inj) 4 mg Q6H PRN IV 02/20/17 15:30 03/22/17 15:29 Hydromorphone HCl (Dilaudid Inj) 0.25 mg Q20M PRN IV 02/20/17 15:30 03/06/17 15:29 Hydromorphone HCl (Dilaudid Inj) 0.5 mg Q20M PRN IV 02/20/17 15:30 03/06/17 15:29 Clonidine HCl (Catapres Tab) 0.1 mg Q6H PRN PO 02/21/17 18:00 03/23/17 17:59 02/23/17 23:09 0.1 MG Clopidogrel Bisulfate (plAVix TAB) 75 mg QAM PO 02/23/17 09:00 03/25/17 08:59 02/25/17 08:47 75 MG Levofloxacin (Levaquin Tab) 750 mg Q2D@0800 PO 02/23/17 08:00 03/02/17 07:59 02/25/17 08:48 750 MG Lactulose (Chronulac Syrup) 15 gm TID PRN PO 02/23/17 08:45 03/25/17 08:44 Enoxaparin Sodium (Lovenox Inj) 30 mg Q24H SQ 02/24/17 09:00 03/26/17 08:59 02/25/17 08:48 30 MG Vancomycin HCl (Consult) 1 ea UD PRN N/A 02/24/17 07:50 03/26/17 07:49 Amlodipine Besylate (Norvasc Tab) 5 mg QAM PO 02/25/17 09:00 03/27/17 08:59 02/25/17 08:48 5 MG Vancomycin HCl 1000 mg/Sodium Chloride 270 ml @ 125 mls/hr Q24H IV 02/25/17 08:00 03/10/17 07:59 02/25/17 08:47 125 MLS/HR Levalbuterol (Xopenex 1.25MG/ 0.5ML Neb) 1.25 mg Q6R INH 02/24/17 11:00 03/26/17 10:59 02/25/17 07:43 1.25 MG Enteral Nutritional Formula (Boost) 1 can TIDM PO 02/24/17 17:45 03/26/17 13:59 02/25/17 08:48 1 CAN Review of Systems Constitutional: + fever (x 1 day), No chills, No sweats, No weakness Eyes: No worsening of vision ENT: No hearing loss Respiratory: + cough (since admission), + wheezing (since admission, mild) Cardiovascular: No chest pain, No palpitations Abdomen: + constipation, No pain, No nausea, No vomiting Musculoskeletal: + joint pain (right hip post operative) Genitourinary - Female: No dysuria Neurologic: + weakness ( Hx Parkinson's) Integumentary: No rash, No itch Physical Exam Date Time Temp Pulse Resp B/P (MAP) Pulse Ox O2 Delivery O2 Flow Rate FiO2 02/25/17 11:32 37.0 86 18 174/80 (111) 98 Nasal Cannula 2.0 02/25/17 08:16 Nasal Cannula 2.0 02/25/17 08:09 96 Nasal Cannula 2.0 02/25/17 07:46 76 16 98 Nasal Cannula 2.0 02/25/17 07:40 37.0 80 19 184/76 (112) 96 Nasal Cannula 2.0 02/25/17 01:51 88 16 95 Nasal Cannula 2.0 02/24/17 22:44 36.9 79 16 137/68 (91) 92 Nasal Cannula 2.0 02/24/17 22:30 Nasal Cannula 2.0 02/24/17 20:00 85 16 94 Nasal Cannula 2.0 02/24/17 15:26 36.1 85 18 128/70 (89) 93 Nasal Cannula 2.0 02/24/17 15:25 Nasal Cannula 2.0 Humidified Oxygen 02/24/17 14:39 90 18 95 Nasal Cannula 2.0 02/24/17 14:15 96 98 General Appearance: WD/WN, no apparent distress Head: normocephalic, atraumatic Eyes: normal inspection, sclerae normal ENT: hearing grossly normal Neck: supple, trachea midline Respiratory/Chest: chest non-tender, no respiratory distress, no accessory muscle use, + rhonchi (throughout right lung) Cardiovascular: regular rate, rhythm, no murmur Abdomen/GI: normal bowel sounds, non tender, soft Neurologic/Psych: alert, normal mood/affect Skin: normal color, warm/dry, no rash Laboratory Results RIGHT KNEE 1 OR 2 VIEWS ROUTINE CLINICAL HISTORY: r/o fracture Right trauma. Pain. COMPARISON: None. DISCUSSION: Considerable degenerative change medial joint compartment. Moderate degenerative change patellofemoral joint. Minimal chondrocalcinosis. Small joint effusion. No significant fat fluid level. There is no evidence for soft tissue swelling. IMPRESSION: Considerable degenerative change. Minimal chondrocalcinosis. Small joint effusion. CHEST ONE VIEW PORTABLE CLINICAL HISTORY: r/o pneumonia dyspnea COMPARISON STUDY: No previous studies for comparison. FINDINGS: Increased density left lung base. This is consistent with that of a left basilar atelectatic change and/or effusion-type change. A trace left basilar effusion may be present. Right hemithorax is clear. IMPRESSION: Atelectatic and/or infiltrative change left base. Trace pleural effusion left base. RUN DATE: 02/25/17 [facility] LAB PAGE 1 RUN TIME: 1149 Specimen Inquiry PATIENT: EMELYNMIKE LOC: DARCY U # : [id number] AGE/SX: 87/F ROOM: W350 REG : 02/20/[address]: Johnny Payne MD : [id number] BED: 2 DIS : STATUS: ADM IN TLOC: SPEC #: [id number] CINDY: 02/23/17 STATUS: COMP REQ #: [id number] RECD: 02/23/[address]: Johnny Payne MD SOURCE: BLOOD ENTR: 02/23/[address] [facility] [address]: Danelle Doan D.O. SPDESC: Carmelo Gunderson M.D. Roeshot, Douglas, M.D. ORDERED: BLOOD CULTURE Procedure Result Verified Site BLD CULT Final 02/25/17-1149 Organism 1 COAG NEG STAPH NOT LUGDUNENSIS SENS NO SENSITIVITY TO FOLLOW One set of 2 positive. Isolation does not necessarily mean infection. No susceptibility tests performed. Contact microbiology laboratory [phone]) if further studies are indicated. Phoned Positive Blood Culture Gram Stain Report to ANH URIAS on 02/24/17 At 0747 By OMARI. Results were verbalized back to OMARI. Item Value Date Time Blood Culture Received 02/25/17 1043 Blood Pending Blood Culture Received 02/25/17 1022 Blood Pending Urine Culture - Final Complete 02/23/17 1100 Urine,Catheterized NO GROWTH - LESS THAN 1,000 COLONIES/ML Blood Culture - Final Complete 02/23/17 0832 Blood Coag Neg Staph Not Lugdunensis Blood Culture - Preliminary Resulted 02/23/17 0827 Blood NO GROWTH TO DATE. MRSA DNA Surveillance Screen - Final Complete 02/20/17 0910 Nasal Specimen Negative for MRSA by DNA Probe Last 24 Hours Test 02/25/17 06:30 White Blood Count 10.36 K/uL Red Blood Count 3.20 M/uL Hemoglobin 9.6 g/dL Hematocrit 29.8 % Mean Corpuscular Volume 93.1 fL Mean Corpuscular Hemoglobin 30.0 pg Mean Corpuscular Hemoglobin Concent 32.2 g/dl Platelet Count 181 K/uL Mean Platelet Volume 10.4 fL Neutrophils (%) (Auto) 79.8 % Lymphocytes (%) (Auto) 9.3 % Monocytes (%) (Auto) 8.2 % Eosinophils (%) (Auto) 2.1 % Basophils (%) (Auto) 0.2 % Neutrophils # (Auto) 8.27 K/uL Lymphocytes # (Auto) 0.96 K/uL Monocytes # (Auto) 0.85 K/uL Eosinophils # (Auto) 0.22 K/uL Basophils # (Auto) 0.02 K/uL RDW Standard Deviation 48.1 fL RDW Coefficient of Variation 14.1 % Immature Granulocyte % (Auto) 0.4 % Immature Granulocyte # (Auto) 0.04 K/uL Sodium Level 141 mmol/L Potassium Level 4.0 mmol/L Chloride Level 108 mmol/L Carbon Dioxide Level 27 mmol/L Anion Gap 6.0 mmol/L Blood Urea Nitrogen 20 mg/dl Creatinine 0.99 mg/dl Est Creatinine Clear Calc Drug Dose 39.7 ml/min Estimated GFR () 59.8 Estimated GFR (Non- 51.6 BUN/Creatinine Ratio 19.7 Random Glucose 153 mg/dl Calcium Level 8.1 mg/dl Assessment & Plan Patient with right hip fracture now s/p trochanteric nailing now with possible developing pneumonia, fever x 1 day, and coag-negative staph in 1/2 blood cultures. She is currently on IV Vancomycin and PO Levaquin. Feel that the coag- negative staph is very likely contamination, but repeat blood cultures are pending- will follow. Can D/C Vancomycin once negative results is obtained. Recommend completing 7 days of Levaquin for possible developing pneumonia. Case reviewed and agree with above assessment.
[2017-02-25] MEDS: CLONIDINE HCL 0.1 MG TAB PO PRN (14:08)
--- NOTE | 2017-02-25 14:52 | Orthopedic Progress Note ---
Orthopedic Progress Note Date of Service Feb 25, 2017. Subjective Post OP Day: 5 Reports: feeling well Additional Notes: Pt awake, alert. Receiving a breathing treatment currently. No new complaints. Stopped to see pt secondary to possible bacteremia. Pt is in good spirits today. Objective calves soft nontender, N/V intact Right hip wounds are essentially benign. Mild erythema around the proximal wound which looks like staple irritation to me. No overt drainage. Swelling of the thigh noted and no worse than last time I saw her. Thigh is soft , NT. Date Time Temp Pulse Resp B/P (MAP) Pulse Ox O2 Delivery O2 Flow Rate FiO2 02/25/17 14:36 77 16 97 Nasal Cannula 2.0 02/25/17 11:32 37.0 86 18 174/80 (111) 98 Nasal Cannula 2.0 02/25/17 08:16 Nasal Cannula 2.0 02/25/17 08:09 96 Nasal Cannula 2.0 02/25/17 07:46 76 16 98 Nasal Cannula 2.0 02/25/17 07:40 37.0 80 19 184/76 (112) 96 Nasal Cannula 2.0 02/25/17 01:51 88 16 95 Nasal Cannula 2.0 02/24/17 22:44 36.9 79 16 137/68 (91) 92 Nasal Cannula 2.0 02/24/17 22:30 Nasal Cannula 2.0 02/24/17 20:00 85 16 94 Nasal Cannula 2.0 02/24/17 15:26 36.1 85 18 128/70 (89) 93 Nasal Cannula 2.0 02/24/17 15:25 Nasal Cannula 2.0 Humidified Oxygen Laboratory Results 24 Hours: Test 02/25/17 06:30 White Blood Count 10.36 K/uL Red Blood Count 3.20 M/uL Hemoglobin 9.6 g/dL Hematocrit 29.8 % Mean Corpuscular Volume 93.1 fL Mean Corpuscular Hemoglobin 30.0 pg Mean Corpuscular Hemoglobin Concent 32.2 g/dl Platelet Count 181 K/uL Mean Platelet Volume 10.4 fL Neutrophils (%) (Auto) 79.8 % Lymphocytes (%) (Auto) 9.3 % Monocytes (%) (Auto) 8.2 % Eosinophils (%) (Auto) 2.1 % Basophils (%) (Auto) 0.2 % Neutrophils # (Auto) 8.27 K/uL Lymphocytes # (Auto) 0.96 K/uL Monocytes # (Auto) 0.85 K/uL Eosinophils # (Auto) 0.22 K/uL Basophils # (Auto) 0.02 K/uL Assessment & Plan Assessment: 87 y/o female POD #5 S/P Right intertrochanteric nail. Plan: No overt signs of infection with the left hip wounds. As per Med Service . Inhouse Planning Pain Management: Ultram, Dilaudid DVT Prophylaxis: SCDs, Lovenox, other (Plavix) Discharge Planning Discharge Planning: rehab hospital
--- NOTE | 2017-02-25 16:03 | Progress Note ---
Medicine Progress Note Date & Time of Visit: Feb 25, 2017 at 15:55. Subjective patient seen sitting up in bed, son Pranay at bedside more alert, conversant still has cough but less, no dyspnea/congestion denies chills appetite improving hip pain controlled denies other symptoms Objective Last 8 Hrs Date Time Temp Pulse Resp B/P (MAP) Pulse Ox O2 Delivery O2 Flow Rate FiO2 02/25/17 14:36 77 16 97 Nasal Cannula 2.0 02/25/17 11:32 37.0 86 18 174/80 (111) 98 Nasal Cannula 2.0 02/25/17 08:16 Nasal Cannula 2.0 02/25/17 08:09 96 Nasal Cannula 2.0 Physical Exam: General- oriented x 2, not in distress, speaks in sentences with no effort Eyes- anicteric Neck- no JVD Lungs-clear breath sounds bilaterally Heart- regular rhythm; no murmur, normal rate Abdomen- normal bowel sounds, soft, nontender Extremities- right knee: no swelling/hematoma/erythema/tenderness no pretibial edema, no calf tenderness; peripheral pulses intact right hip: (+) dressing in place, no warmth/erythema Neuro- alert, oriented x 2;no gross focal deficits Skin- warm & dry Laboratory Results: Last 24 Hours Test 02/25/17 06:30 White Blood Count 10.36 K/uL Red Blood Count 3.20 M/uL Hemoglobin 9.6 g/dL Hematocrit 29.8 % Mean Corpuscular Volume 93.1 fL Mean Corpuscular Hemoglobin 30.0 pg Mean Corpuscular Hemoglobin Concent 32.2 g/dl Platelet Count 181 K/uL Mean Platelet Volume 10.4 fL Neutrophils (%) (Auto) 79.8 % Lymphocytes (%) (Auto) 9.3 % Monocytes (%) (Auto) 8.2 % Eosinophils (%) (Auto) 2.1 % Basophils (%) (Auto) 0.2 % Neutrophils # (Auto) 8.27 K/uL Lymphocytes # (Auto) 0.96 K/uL Monocytes # (Auto) 0.85 K/uL Eosinophils # (Auto) 0.22 K/uL Basophils # (Auto) 0.02 K/uL RDW Standard Deviation 48.1 fL RDW Coefficient of Variation 14.1 % Immature Granulocyte % (Auto) 0.4 % Immature Granulocyte # (Auto) 0.04 K/uL Sodium Level 141 mmol/L Potassium Level 4.0 mmol/L Chloride Level 108 mmol/L Carbon Dioxide Level 27 mmol/L Anion Gap 6.0 mmol/L Blood Urea Nitrogen 20 mg/dl Creatinine 0.99 mg/dl Est Creatinine Clear Calc Drug Dose 39.7 ml/min Estimated GFR () 59.8 Estimated GFR (Non- 51.6 BUN/Creatinine Ratio 19.7 Random Glucose 153 mg/dl Calcium Level 8.1 mg/dl Date/Time Source Procedure Growth Status 02/25/17 10:43 Blood Blood Culture Pending Received 02/25/17 10:22 Blood Blood Culture Pending Received Assessment & Plan 87 year old female with history of Dementia, Parkinson,CKD 3, CVA presenting s/p Fall. RIGHT HIP FRACTURE S/P Mechanical fall -- s/p Trochanteric nailing 02/20/17 -- post op day 5 - (+) fever 02/22/17 afebrile since WBC normal again management as noted below -- Hg decreased to 10 stable at ~10 so far on Lovenox SC for DVT prophylaxis -- PT/OT in progress anticipate d/c to [facility] when still afebrile, cultures finalize FEVER LEFT BASE PNEUMONIA CXR possible L base PNA Levaquin started ff up sputum cultures cough improving, afebrile continue Levaquin, added Nebs POSSIBLE BACTEREMIA blood culture 1/2 bottles: gram positive cocci repeat blood cultures pending Vancomycin Day 2 ff up cultures RIGHT KNEE PAIN xray: no fractures ice packs PRN ACUTE BLOOD LOSS ANEMIA -- likely from Surgery -- Hg stable ~10 HTN no history of Hypertension started Amlodipine 5mg po daily PRN clonidine monitor PARKINSON'S DEMENTIA Continue Sinemet and Aricept Hx OF CVA / TIA Plavix resumed Continue Pravastatin PRE DM a1c 6.4 BSGs stable DM diet VIT D DEFICIENCY on supplementation monitor as outpatient DVT PROPHYLAXIS Lovenox SCDs in place Disposition anticipate d/c to [facility] when afebrile, cultures finalize Continued [facility] stay due to: ambulation difficulties, other (Fixation of fractured hip 02/20/2017) Discharge planning: uncertain Current Inpatient Medications: Current Inpatient Medications Medications (Trade) Dose Ordered Sig/[place] Route Start Time Stop Time Status Last Admin Dose Admin Acetaminophen (Tylenol Tab) 650 mg Q4H PRN PO 02/20/17 05:00 03/22/17 04:59 02/24/17 15:30 650 MG Tramadol HCl (Ultram Tab) 25 mg Q6H PRN PO 02/20/17 06:00 03/22/17 05:59 02/22/17 10:23 25 MG Ondansetron HCl (Zofran Inj) 4 mg Q6H PRN IV 02/20/17 06:00 03/22/17 05:59 Hydromorphone HCl (Dilaudid Inj) 0.5 mg Q4H PRN IV 02/20/17 06:00 03/06/17 05:59 Carbidopa/Levodopa (Sinemet 25/ 100MG Tab) 2 tab TID PO 02/20/17 14:00 03/22/17 13:59 02/25/17 13:56 2 TAB Donepezil HCl (Aricept Tab) 10 mg DAILY PO 02/20/17 09:00 03/22/17 08:59 02/25/17 08:48 10 MG Loratadine (Claritin Tab) 10 mg DAILY PO 02/20/17 09:00 03/22/17 08:59 02/25/17 08:48 10 MG Pravastatin Sodium (Pravachol Tab) 20 mg HS PO 02/20/17 21:00 03/22/17 20:59 02/24/17 21:37 20 MG Naloxone HCl (Narcan Inj) 0.1 mg PRN PRN IV 02/20/17 08:00 03/22/17 07:59 Senna/Docusate Sodium (Senokot S Tab) 2 tab HS PO 02/20/17 21:00 03/22/17 20:59 02/23/17 20:33 2 TAB Polyethylene (Miralax Powder Packet) 17 gm DAILY PRN PO 02/20/17 08:00 03/22/17 07:59 02/23/17 12:28 17 GM Magnesium Hydroxide (Milk Of Magnesia Susp) 30 ml DAILY PRN PO 02/20/17 08:00 03/22/17 07:59 02/23/17 19:56 30 ML Bisacodyl (Dulcolax Supp) 10 mg DAILY PRN [place] 02/20/17 08:00 03/22/17 07:59 Sodium Biphosphate/ Sodium Phosphate (Fleet Enema) 132 ml PRN PRN [place] 02/20/17 08:00 Ondansetron HCl (Zofran Inj) 4 mg Q6H PRN IV 02/20/17 15:30 03/22/17 15:29 Hydromorphone HCl (Dilaudid Inj) 0.25 mg Q20M PRN IV 02/20/17 15:30 03/06/17 15:29 Hydromorphone HCl (Dilaudid Inj) 0.5 mg Q20M PRN IV 02/20/17 15:30 03/06/17 15:29 Clonidine HCl (Catapres Tab) 0.1 mg Q6H PRN PO 02/21/17 18:00 03/23/17 17:59 02/25/17 14:08 0.1 MG Clopidogrel Bisulfate (plAVix TAB) 75 mg QAM PO 02/23/17 09:00 03/25/17 08:59 02/25/17 08:47 75 MG Levofloxacin (Levaquin Tab) 750 mg Q2D@0800 PO 02/23/17 08:00 03/02/17 07:59 02/25/17 08:48 750 MG Lactulose (Chronulac Syrup) 15 gm TID PRN PO 02/23/17 08:45 03/25/17 08:44 Enoxaparin Sodium (Lovenox Inj) 30 mg Q24H SQ 02/24/17 09:00 03/26/17 08:59 02/25/17 08:48 30 MG Vancomycin HCl (Consult) 1 ea UD PRN N/A 02/24/17 07:50 03/26/17 07:49 Amlodipine Besylate (Norvasc Tab) 5 mg QAM PO 02/25/17 09:00 03/27/17 08:59 02/25/17 08:48 5 MG Vancomycin HCl 1000 mg/Sodium Chloride 270 ml @ 125 mls/hr Q24H IV 02/25/17 08:00 03/10/17 07:59 02/25/17 08:47 125 MLS/HR Levalbuterol (Xopenex 1.25MG/ 0.5ML Neb) 1.25 mg Q6R INH 02/24/17 11:00 03/26/17 10:59 02/25/17 14:35 1.25 MG Enteral Nutritional Formula (Boost) 1 can TIDM PO 02/24/17 17:45 03/26/17 13:59 02/25/17 12:30 1 CAN
[2017-02-25] MEDS: PRAVASTATIN SOD 20 MG TAB PO SCH (21:24)
[2017-02-25] MEDS: DOCUSATE SODIUM/SENNA 50/8.6MG TAB PO SCH (21:24)
[2017-02-26] VITALS (9 sets, daily range): BP systolic 86–170; BP diastolic 44–67; PULSE 71–92; TEMP 36.6–37.2; O2SAT 92–97
[2017-02-26] MEDS: LEVALBUTEROL 1.25MG/0.5ML NEB INH SCH ×4 (01:51→19:05)
[2017-02-26 06:55] LABS: BASO % 0.3 %; BASO ABS # 0.03 K/uL (0-0.2); EOS % 3.2 %; HEMATOCRIT 29.4 % (37-47); IG% 0.5 %; LYMPH % 13.1 %; LYMPH ABS # 1.14 K/uL (1.2-3.4); MEAN CELL VOLUME 93.6 fL (80-100); MEAN CORPUSCULAR HEMOGLOBIN 29.9 pg (25-34); MEAN PLATELET VOLUME 10.6 fL (7.4-10.4); MONO % 10.8 %; NEUT % 72.1 %; PLATELET COUNT 178 K/uL (130-400); RED BLOOD COUNT 3.14 M/uL (4.2-5.4); WHITE BLOOD COUNT 8.71 K/uL (4.8-10.8)
[2017-02-26 06:56] LABS: COMPLETE YES
[2017-02-26 07:26] LABS: BUN/CREATININE RATIO 17.1 (10-20); CALCIUM 8.2 mg/dl (8.5-10.1); CREATININE 1.6 mg/dl (0.60-1.20); POTASSIUM 4.1 mmol/L (3.5-5.1)
[2017-02-26] MEDS: SODIUM CHLORIDE 0.9% 1000ML 1,000 ML IV SCH ×2 (08:24→18:36)
[2017-02-26] MEDS: LORATADINE 10 MG TAB PO SCH (08:38)
[2017-02-26] MEDS: CLOPIDOGREL BISULFATE 75 MG TAB PO SCH (08:38)
[2017-02-26] MEDS: DONEPEZIL HCL 10 MG TAB PO SCH (08:38)
[2017-02-26] MEDS: ENOXAPARIN 30 MG/0.3 ML SYR SQ SCH (08:39)
[2017-02-26] MEDS: AMLODIPINE BESYLATE 5 MG TAB PO SCH (08:39)
[2017-02-26] MEDS: CARBIDOPA/LEVODOPA 25/100MG TAB PO SCH ×3 (08:39→20:54)
[2017-02-26] MEDS: BOOST VANILLA PO SCH ×6 (08:40→17:45)
--- NOTE | 2017-02-26 11:54 | Progress Note ---
Medicine Progress Note Date & Time of Visit: Feb 26, 2017 at 11:47. Subjective patient seen resting in bed, sleeping but easily rousable in good spirits, pleasant denies dyspnea, very little cough no fever/chills, abdominal pain ,nausea, urinary symptoms no other symptoms Objective Last 8 Hrs Date Time Temp Pulse Resp B/P (MAP) Pulse Ox O2 Delivery O2 Flow Rate FiO2 02/26/17 08:39 92 138/66 (90) 02/26/17 07:23 73 16 97 Nasal Cannula 2.0 02/26/17 07:10 Nasal Cannula 2.0 Humidified Oxygen 02/26/17 06:54 36.6 71 21 170/67 (101) 96 Nasal Cannula 2.0 Humidified Oxygen Physical Exam: General- oriented x 2, not in distress, speaks in sentences with no effort Eyes- anicteric Neck- no JVD Lungs-clear breath sounds, no rales/wheezes Heart- normal rate, regular rhythm; no murmurs Abdomen- normal bowel sounds, soft, nontender Extremities- right knee: no swelling/hematoma/erythema/tenderness no pretibial edema, no calf tenderness; peripheral pulses intact right hip: (+) dressing in place, no warmth/erythema Neuro- alert, oriented x 2;no gross focal deficits Skin- warm & dry Laboratory Results: Last 24 Hours Test 02/26/17 06:10 White Blood Count 8.71 K/uL Red Blood Count 3.14 M/uL Hemoglobin 9.4 g/dL Hematocrit 29.4 % Mean Corpuscular Volume 93.6 fL Mean Corpuscular Hemoglobin 29.9 pg Mean Corpuscular Hemoglobin Concent 32.0 g/dl Platelet Count 178 K/uL Mean Platelet Volume 10.6 fL Neutrophils (%) (Auto) 72.1 % Lymphocytes (%) (Auto) 13.1 % Monocytes (%) (Auto) 10.8 % Eosinophils (%) (Auto) 3.2 % Basophils (%) (Auto) 0.3 % Neutrophils # (Auto) 6.28 K/uL Lymphocytes # (Auto) 1.14 K/uL Monocytes # (Auto) 0.94 K/uL Eosinophils # (Auto) 0.28 K/uL Basophils # (Auto) 0.03 K/uL RDW Standard Deviation 49.1 fL RDW Coefficient of Variation 14.3 % Immature Granulocyte % (Auto) 0.5 % Immature Granulocyte # (Auto) 0.04 K/uL Sodium Level 142 mmol/L Potassium Level 4.1 mmol/L Chloride Level 107 mmol/L Carbon Dioxide Level 28 mmol/L Anion Gap 7.0 mmol/L Blood Urea Nitrogen 27 mg/dl Creatinine 1.60 mg/dl Est Creatinine Clear Calc Drug Dose 24.5 ml/min Estimated GFR () 33.5 Estimated GFR (Non- 28.9 BUN/Creatinine Ratio 17.1 Random Glucose 149 mg/dl Calcium Level 8.2 mg/dl Assessment & Plan 87 year old female with history of Dementia, Parkinson,CKD 3, CVA presenting s/p Fall. RIGHT HIP FRACTURE S/P Mechanical fall -- s/p Trochanteric nailing 02/20/17 -- post op day 6 - (+) fever 02/22/17 afebrile since WBC normal again management as noted below -- Hg decreased to 10 stable at ~ 9-10 so far on Lovenox SC for DVT prophylaxis -- PT/OT in progress anticipate d/c to [facility] when crea improves FEVER LEFT BASE PNEUMONIA CXR possible L base PNA Levaquin started cough improving, afebrile continue Levaquin Day 4, Nebs POSSIBLE BACTEREMIA blood culture / bottles: staph coag neg not lugdunensis, repeat blood cultures pending received Vancomycin 1 dose crea elevated suspicion for bacteremia low at this time d/c Vanco for now ff up cultures ACUTE RENAL FAILURE on CKD 3 possible pre renal etiology d/c Vanco IV fluids started monitor crea no nephrotoxins RIGHT KNEE PAIN xray: no fractures ice packs PRN ACUTE BLOOD LOSS ANEMIA -- likely from Surgery -- Hg stable ~10 HTN no history of Hypertension started Amlodipine 5mg po daily BP improving PRN clonidine monitor PARKINSON'S DEMENTIA Continue Sinemet and Aricept Hx OF CVA / TIA Plavix resumed Continue Pravastatin PRE DM a1c 6.4 BSGs stable DM diet VIT D DEFICIENCY on supplementation monitor as outpatient DVT PROPHYLAXIS Lovenox SCDs in place Disposition anticipate [facility] when crea improves Continued [facility] stay due to: ambulation difficulties, other (Fixation of fractured hip 02/20/2017) Discharge planning: uncertain Current Inpatient Medications: Current Inpatient Medications Medications (Trade) Dose Ordered Sig/[place] Route Start Time Stop Time Status Last Admin Dose Admin Acetaminophen (Tylenol Tab) 650 mg Q4H PRN PO 02/20/17 05:00 03/22/17 04:59 02/24/17 15:30 650 MG Tramadol HCl (Ultram Tab) 25 mg Q6H PRN PO 02/20/17 06:00 03/22/17 05:59 02/22/17 10:23 25 MG Ondansetron HCl (Zofran Inj) 4 mg Q6H PRN IV 02/20/17 06:00 03/22/17 05:59 Hydromorphone HCl (Dilaudid Inj) 0.5 mg Q4H PRN IV 02/20/17 06:00 03/06/17 05:59 Carbidopa/Levodopa (Sinemet 25/ 100MG Tab) 2 tab TID PO 02/20/17 14:00 03/22/17 13:59 02/26/17 08:39 2 TAB Donepezil HCl (Aricept Tab) 10 mg DAILY PO 02/20/17 09:00 03/22/17 08:59 02/26/17 08:38 10 MG Loratadine (Claritin Tab) 10 mg DAILY PO 02/20/17 09:00 03/22/17 08:59 02/26/17 08:38 10 MG Pravastatin Sodium (Pravachol Tab) 20 mg HS PO 02/20/17 21:00 03/22/17 20:59 02/25/17 21:24 20 MG Naloxone HCl (Narcan Inj) 0.1 mg PRN PRN IV 02/20/17 08:00 03/22/17 07:59 Senna/Docusate Sodium (Senokot S Tab) 2 tab HS PO 02/20/17 21:00 03/22/17 20:59 02/25/17 21:24 2 TAB Polyethylene (Miralax Powder Packet) 17 gm DAILY PRN PO 02/20/17 08:00 03/22/17 07:59 02/23/17 12:28 17 GM Magnesium Hydroxide (Milk Of Magnesia Susp) 30 ml DAILY PRN PO 02/20/17 08:00 03/22/17 07:59 02/23/17 19:56 30 ML Bisacodyl (Dulcolax Supp) 10 mg DAILY PRN [place] 02/20/17 08:00 03/22/17 07:59 Sodium Biphosphate/ Sodium Phosphate (Fleet Enema) 132 ml PRN PRN [place] 02/20/17 08:00 Ondansetron HCl (Zofran Inj) 4 mg Q6H PRN IV 02/20/17 15:30 03/22/17 15:29 Hydromorphone HCl (Dilaudid Inj) 0.25 mg Q20M PRN IV 02/20/17 15:30 03/06/17 15:29 Hydromorphone HCl (Dilaudid Inj) 0.5 mg Q20M PRN IV 02/20/17 15:30 03/06/17 15:29 Clonidine HCl (Catapres Tab) 0.1 mg Q6H PRN PO 02/21/17 18:00 03/23/17 17:59 02/25/17 14:08 0.1 MG Clopidogrel Bisulfate (plAVix TAB) 75 mg QAM PO 02/23/17 09:00 03/25/17 08:59 02/26/17 08:38 75 MG Levofloxacin (Levaquin Tab) 750 mg Q2D@0800 PO 02/23/17 08:00 03/02/17 07:59 02/25/17 08:48 750 MG Lactulose (Chronulac Syrup) 15 gm TID PRN PO 02/23/17 08:45 03/25/17 08:44 Enoxaparin Sodium (Lovenox Inj) 30 mg Q24H SQ 02/24/17 09:00 03/26/17 08:59 02/26/17 08:39 30 MG Amlodipine Besylate (Norvasc Tab) 5 mg QAM PO 02/25/17 09:00 03/27/17 08:59 02/26/17 08:39 5 MG Levalbuterol (Xopenex 1.25MG/ 0.5ML Neb) 1.25 mg Q6R INH 02/24/17 11:00 03/26/17 10:59 02/26/17 07:22 1.25 MG Enteral Nutritional Formula (Boost) 1 can TIDM PO 02/24/17 17:45 03/26/17 13:59 02/26/17 08:40 1 CAN Sodium Chloride 1,000 ml @ 80 mls/hr [id number] IV 02/26/17 08:00 03/28/17 07:59 02/26/17 08:24 80 MLS/HR
[2017-02-26] MEDS: ACETAMINOPHEN 325 MG TAB PO PRN (20:54)
[2017-02-26] MEDS: PRAVASTATIN SOD 20 MG TAB PO SCH (20:54)
[2017-02-26] MEDS: DOCUSATE SODIUM/SENNA 50/8.6MG TAB PO SCH (20:54)
[2017-02-27] VITALS (8 sets, daily range): BP systolic 151–198; BP diastolic 73–86; PULSE 76–86; TEMP 36.7–37.2; O2SAT 91–100
[2017-02-27] MEDS: LEVALBUTEROL 1.25MG/0.5ML NEB INH SCH ×4 (02:00→19:48)
[2017-02-27] MEDS: SODIUM CHLORIDE 0.9% 1000ML 1,000 ML IV SCH ×3 (04:28→23:56)
[2017-02-27 06:07] LABS: BASO % 0.5 %; BASO ABS # 0.04 K/uL (0-0.2); COMPLETE YES; EOS % 4.1 %; HEMATOCRIT 28.7 % (37-47); IG% 0.6 %; LYMPH % 15.4 %; LYMPH ABS # 1.25 K/uL (1.2-3.4); MEAN CELL VOLUME 92.9 fL (80-100); MEAN CORPUSCULAR HEMOGLOBIN 29.4 pg (25-34); MEAN CORPUSCULAR HGB CONC 31.7 g/dl (32-36); MEAN PLATELET VOLUME 10.5 fL (7.4-10.4); MONO % 8.6 %; NEUT % 70.8 %; PLATELET COUNT 223 K/uL (130-400); RED BLOOD COUNT 3.09 M/uL (4.2-5.4); WHITE BLOOD COUNT 8.11 K/uL (4.8-10.8)
[2017-02-27 06:36] LABS: BUN/CREATININE RATIO 15.9 (10-20); CALCIUM 8.3 mg/dl (8.5-10.1); CREATININE 1.7 mg/dl (0.60-1.20); POTASSIUM 3.8 mmol/L (3.5-5.1)
[2017-02-27] MEDS: AMLODIPINE BESYLATE 5 MG TAB PO SCH (08:35)
[2017-02-27] MEDS: CARBIDOPA/LEVODOPA 25/100MG TAB PO SCH ×3 (08:35→21:43)
[2017-02-27] MEDS: LEVOFLOXACIN 750 MG TAB PO SCH (08:35)
[2017-02-27] MEDS: LORATADINE 10 MG TAB PO SCH (08:36)
[2017-02-27] MEDS: CLOPIDOGREL BISULFATE 75 MG TAB PO SCH (08:36)
[2017-02-27] MEDS: DONEPEZIL HCL 10 MG TAB PO SCH (08:36)
[2017-02-27] MEDS: BOOST VANILLA PO SCH ×6 (08:37→17:45)
[2017-02-27] MEDS: ENOXAPARIN 30 MG/0.3 ML SYR SQ SCH (10:10)
[2017-02-27] MEDS: ACETAMINOPHEN 325 MG TAB PO PRN (10:18)
--- NOTE | 2017-02-27 12:17 | DIAGNOSTIC IMAGING REPORT ---
ULTRASOUND KIDNEYS AND BLADDER CLINICAL HISTORY: Acute renal insufficiency. COMPARISON STUDY: No priors. TECHNIQUE: Real-time, grayscale, and color flow sonography of the kidneys and bladder is performed. Images are reviewed in the transverse and longitudinal planes. FINDINGS: Kidneys: The kidneys demonstrate cortical atrophy, asymmetrically greater on the left. The right kidney measures 12.6 cm in length and the left kidney measures 9.1 cm in length. There is no hydronephrosis. Foci of cortical scarring are noted in the left lower pole. No shadowing renal calculi are identified. There is no sonographic evidence of contour deforming renal mass lesion. No perinephric fluid is identified. Bladder: The bladder is decompressed around a Ruiz catheter and could not be assessed. IMPRESSION: 1. There is asymmetric cortical atrophy of the left kidney as compared to the right. There is no hydronephrosis. 2. The bladder was decompressed around a Ruiz catheter and could not be assessed. Electronically signed by: Hardik Bartlett M.D. 02/27/2017 12:15 PM Dictated Date/Time: 02/27/2017 12:14 PM
[2017-02-27 12:45] LABS: MANUAL MICROSCOPIC REQUIRED? NO; URINE APPEARANCE CLEAR (CLEAR); URINE BILIRUBIN NEG (NEG); URINE COLOR COLORLESS; URINE NITRITE NEG (NEG); URINE PH 5.5 (4.5-7.5); URINE SPECIFIC GRAVITY <= 1.005 (1.000-1.030); UROBILINOGEN NEG (NEG)
[2017-02-27 13:07] LABS: REVIEW REQ? NO
[2017-02-27 16:02] LABS: URINE APPEARANCE CLEAR (CLEAR); URINE BILIRUBIN NEG (NEG); URINE COLOR YELLOW; URINE NITRITE NEG (NEG); URINE PH 6.5 (4.5-7.5); URINE SPECIFIC GRAVITY 1.012 (1.000-1.030); UROBILINOGEN NEG (NEG); ZZURINE CULT IF INDIC CATH NO
[2017-02-27 16:04] LABS: MANUAL MICROSCOPIC REQUIRED? NO; REVIEW REQ? NO
--- NOTE | 2017-02-27 20:12 | Progress Note ---
Medicine Progress Note Date & Time of Visit: Feb 27, 2017 at 20:01. Subjective patient seen resting in bed family at bedside reports increased confusion this morning, not able to feed herself as she normally would do on exam, patient is oriented x 2, answers most questions appropriately, very pleasant, smiling states she feels ok overall very little cough, no sputum production, no dyspnea/chest pain denies abdominal pain ,nausea, chills no other symptoms Objective Last 8 Hrs Date Time Temp Pulse Resp B/P (MAP) Pulse Ox O2 Delivery O2 Flow Rate FiO2 02/27/17 19:48 85 16 95 Room Air 02/27/17 15:45 Room Air 02/27/17 15:11 36.7 82 18 151/82 (105) 94 Room Air 02/27/17 14:30 81 16 95 Room Air Physical Exam: General- oriented x 2, not in distress, speaks in sentences with no effort Eyes- anicteric Neck- no JVD Lungs-clear breath sounds, no rales/wheezes, bilaterally Heart- normal rate, regular rhythm; no murmurs Abdomen- normal bowel sounds, soft, nontender Extremities- right knee: no swelling/hematoma/erythema/tenderness no pretibial edema, no calf tenderness; peripheral pulses intact right hip: (+) dressing in place, no warmth/erythema Neuro- alert, oriented x 2;no gross focal deficits Skin- warm & dry Laboratory Results: Last 24 Hours Test 02/27/17 05:10 02/27/17 07:58 02/27/17 11:50 02/27/17 15:50 White Blood Count 8.11 K/uL Red Blood Count 3.09 M/uL Hemoglobin 9.1 g/dL Hematocrit 28.7 % Mean Corpuscular Volume 92.9 fL Mean Corpuscular Hemoglobin 29.4 pg Mean Corpuscular Hemoglobin Concent 31.7 g/dl Platelet Count 223 K/uL Mean Platelet Volume 10.5 fL Neutrophils (%) (Auto) 70.8 % Lymphocytes (%) (Auto) 15.4 % Monocytes (%) (Auto) 8.6 % Eosinophils (%) (Auto) 4.1 % Basophils (%) (Auto) 0.5 % Neutrophils # (Auto) 5.74 K/uL Lymphocytes # (Auto) 1.25 K/uL Monocytes # (Auto) 0.70 K/uL Eosinophils # (Auto) 0.33 K/uL Basophils # (Auto) 0.04 K/uL RDW Standard Deviation 48.6 fL RDW Coefficient of Variation 14.3 % Immature Granulocyte % (Auto) 0.6 % Immature Granulocyte # (Auto) 0.05 K/uL Sodium Level 144 mmol/L Potassium Level 3.8 mmol/L Chloride Level 110 mmol/L Carbon Dioxide Level 26 mmol/L Anion Gap 8.0 mmol/L Blood Urea Nitrogen 27 mg/dl Creatinine 1.70 mg/dl Est Creatinine Clear Calc Drug Dose 23.1 ml/min Estimated GFR () 31.1 Estimated GFR (Non- 26.8 BUN/Creatinine Ratio 15.9 Random Glucose 142 mg/dl Calcium Level 8.3 mg/dl Bedside Glucose 166 mg/dl Urine Color COLORLESS YELLOW Urine Appearance CLEAR CLEAR Urine pH 5.5 6.5 Urine Specific Palmer <= 1.005 1.012 Urine Protein NEG NEG Urine Glucose (UA) NEG NEG Urine Ketones NEG NEG Urine Occult Blood NEG NEG Urine Nitrite NEG NEG Urine Bilirubin NEG NEG Urine Urobilinogen NEG NEG Urine Leukocyte Esterase NEG NEG Assessment & Plan 87 year old female with history of Dementia, Parkinson, CKD 3, CVA presenting s/p Fall. RIGHT HIP FRACTURE S/P Mechanical fall -- s/p Trochanteric nailing 02/20/17 -- post op day 7 - (+) fever 02/22/17 CXR showed possible pneumonia, management noted below afebrile since WBC normal again FEVER LEFT BASE PNEUMONIA CXR possible L base PNA Levaquin started cough improving, afebrile complete Levaquin x 5 days Nebs BACTEREMIA RULED OUT blood culture 09/07 bottles: staph coag neg not lugdunensis, repeat blood cultures: negative received Vancomycin 1 dose ID consulted ACUTE RENAL FAILURE on CKD 3 possible pre renal etiology, from Vancomycin? received 1 dose Vancomycin crea 0.9 to 1.6 IV fluids started crea still at 1.7 Nephrology consulted Renal US ordered appreciate Nephro input ANEMIA, possible ACUTE BLOOD LOSS SECONDARY TO SURGERY -- stable at ~ 9-10 so far (12 on admission) on Lovenox SC for DVT prophylaxis -- PT/OT in progress RIGHT KNEE PAIN xray: no fractures ice packs PRN HTN no history of Hypertension started Amlodipine 5mg po daily BP improving PRN clonidine monitor PARKINSON'S DEMENTIA some increased confusion today likely multifactorial- infection, acute renal failure, hospital delirium Continue Sinemet and Aricept Hx OF CVA / TIA Plavix resumed Continue Pravastatin PRE DM A1c 6.4 BSGs stable DM diet VIT D DEFICIENCY on supplementation monitor as outpatient DVT PROPHYLAXIS Lovenox SCDs in place Disposition anticipate d/c to [facility] when crea improves follows with Dr. Doan for Primary Care follow up with Ortho Dr. Hobbs Continued [facility] stay due to: ambulation difficulties, other (Fixation of fractured hip 02/20/2017) Discharge planning: uncertain Current Inpatient Medications: Current Inpatient Medications Medications (Trade) Dose Ordered Sig/[place] Route Start Time Stop Time Status Last Admin Dose Admin Acetaminophen (Tylenol Tab) 650 mg Q4H PRN PO 02/20/17 05:00 03/22/17 04:59 02/27/17 10:18 650 MG Tramadol HCl (Ultram Tab) 25 mg Q6H PRN PO 02/20/17 06:00 03/22/17 05:59 02/22/17 10:23 25 MG Hydromorphone HCl (Dilaudid Inj) 0.5 mg Q4H PRN IV 02/20/17 06:00 03/06/17 05:59 Carbidopa/Levodopa (Sinemet 25/ 100MG Tab) 2 tab TID PO 02/20/17 14:00 03/22/17 13:59 02/27/17 14:24 2 TAB Donepezil HCl (Aricept Tab) 10 mg DAILY PO 02/20/17 09:00 03/22/17 08:59 02/27/17 08:36 10 MG Loratadine (Claritin Tab) 10 mg DAILY PO 02/20/17 09:00 03/22/17 08:59 02/27/17 08:36 10 MG Pravastatin Sodium (Pravachol Tab) 20 mg HS PO 02/20/17 21:00 03/22/17 20:59 02/26/17 20:54 20 MG Naloxone HCl (Narcan Inj) 0.1 mg PRN PRN IV 02/20/17 08:00 03/22/17 07:59 Senna/Docusate Sodium (Senokot S Tab) 2 tab HS PO 02/20/17 21:00 03/22/17 20:59 02/26/17 20:54 2 TAB Polyethylene (Miralax Powder Packet) 17 gm DAILY PRN PO 02/20/17 08:00 03/22/17 07:59 02/23/17 12:28 17 GM Magnesium Hydroxide (Milk Of Magnesia Susp) 30 ml DAILY PRN PO 02/20/17 08:00 03/22/17 07:59 02/23/17 19:56 30 ML Bisacodyl (Dulcolax Supp) 10 mg DAILY PRN [place] 02/20/17 08:00 03/22/17 07:59 Sodium Biphosphate/ Sodium Phosphate (Fleet Enema) 132 ml PRN PRN [place] 02/20/17 08:00 Ondansetron HCl (Zofran Inj) 4 mg Q6H PRN IV 02/20/17 15:30 03/22/17 15:29 Hydromorphone HCl (Dilaudid Inj) 0.25 mg Q20M PRN IV 02/20/17 15:30 03/06/17 15:29 Hydromorphone HCl (Dilaudid Inj) 0.5 mg Q20M PRN IV 02/20/17 15:30 03/06/17 15:29 Clonidine HCl (Catapres Tab) 0.1 mg Q6H PRN PO 02/21/17 18:00 03/23/17 17:59 02/25/17 14:08 0.1 MG Clopidogrel Bisulfate (plAVix TAB) 75 mg QAM PO 02/23/17 09:00 03/25/17 08:59 02/27/17 08:36 75 MG Lactulose (Chronulac Syrup) 15 gm TID PRN PO 02/23/17 08:45 03/25/17 08:44 Enoxaparin Sodium (Lovenox Inj) 30 mg Q24H SQ 02/24/17 09:00 03/26/17 08:59 02/27/17 10:10 30 MG Amlodipine Besylate (Norvasc Tab) 5 mg QAM PO 02/25/17 09:00 03/27/17 08:59 02/27/17 08:35 5 MG Levalbuterol (Xopenex 1.25MG/ 0.5ML Neb) 1.25 mg Q6R INH 02/24/17 11:00 03/26/17 10:59 02/27/17 19:48 1.25 MG Enteral Nutritional Formula (Boost) 1 can TIDM PO 02/24/17 17:45 03/26/17 13:59 02/27/17 17:45 1 CAN Sodium Chloride 1,000 ml @ 100 mls/hr Q10H IV 02/26/17 08:00 03/28/17 07:59 02/27/17 14:24 100 MLS/HR
[2017-02-27] MEDS: DOCUSATE SODIUM/SENNA 50/8.6MG TAB PO SCH (21:00)
[2017-02-27] MEDS: PRAVASTATIN SOD 20 MG TAB PO SCH (21:44)
[2017-02-27] MEDS: CLONIDINE HCL 0.1 MG TAB PO PRN (23:25)
[2017-02-28] VITALS (9 sets, daily range): BP systolic 129–191; BP diastolic 72–90; PULSE 70–87; TEMP 36.3–36.7; O2SAT 92–96
[2017-02-28] MEDS ORDERED: HydrALAZINE HCL 20 MG/ML VIAL IV. ONE (01:45)
[2017-02-28] MEDS: LEVALBUTEROL 1.25MG/0.5ML NEB INH SCH ×3 (01:59→14:15)
[2017-02-28] MEDS: ACETAMINOPHEN 325 MG TAB PO PRN ×2 (03:11→15:41)
[2017-02-28 06:57] LABS: BASO % 0.3 %; BASO ABS # 0.02 K/uL (0-0.2); COMPLETE YES; HEMATOCRIT 29.7 % (37-47); IG% 0.9 %; LYMPH % 11.1 %; LYMPH ABS # 0.86 K/uL (1.2-3.4); MEAN CELL VOLUME 92.5 fL (80-100); MEAN CORPUSCULAR HEMOGLOBIN 29.9 pg (25-34); MEAN CORPUSCULAR HGB CONC 32.3 g/dl (32-36); MEAN PLATELET VOLUME 10.1 fL (7.4-10.4); MONO % 10.6 %; NEUT % 74.1 %; PLATELET COUNT 249 K/uL (130-400); RED BLOOD COUNT 3.21 M/uL (4.2-5.4); WHITE BLOOD COUNT 7.73 K/uL (4.8-10.8)
[2017-02-28 07:32] LABS: CREATININE 1.4 mg/dl (0.60-1.20); POTASSIUM 3.7 mmol/L (3.5-5.1)
[2017-02-28 07:51] LABS: CALCIUM 8.6 mg/dl (8.5-10.1)
[2017-02-28] MEDS: LORATADINE 10 MG TAB PO SCH (09:24)
[2017-02-28] MEDS: CLOPIDOGREL BISULFATE 75 MG TAB PO SCH (09:24)
[2017-02-28] MEDS: DONEPEZIL HCL 10 MG TAB PO SCH (09:24)
[2017-02-28] MEDS: CARBIDOPA/LEVODOPA 25/100MG TAB PO SCH ×3 (09:24→21:36)
[2017-02-28] MEDS: AMLODIPINE BESYLATE 5 MG TAB PO SCH (09:24)
[2017-02-28] MEDS: ENOXAPARIN 30 MG/0.3 ML SYR SQ SCH (09:25)
[2017-02-28] MEDS: BOOST VANILLA PO SCH ×6 (09:26→17:36)
[2017-02-28] MEDS: SODIUM CHLORIDE 0.9% 1000ML 1,000 ML IV SCH (09:30)
--- NOTE | 2017-02-28 16:18 | NEPHROLOGY CONSULTATION ---
DATE OF CONSULTATION: 02/28/2017 ATTENDING OF RECORD: Dr. Payne. REASON FOR CONSULTATION: NAHUM. HISTORY OF PRESENT ILLNESS: This is an 87-year-old female who presented with a right hip fracture, who has baseline CKD stage III with a creatinine of 1.4-1.5 who attempted to get out of bed leading to slipping on the floor and falling on her right side. The patient's creatinine on admission was 1.5 and worsened to 1.7 yesterday, this morning has improved to 1.4. The patient did receive 1 dose of vancomycin on the . The patient underwent surgery on the with a right intramedullary nail hip fracture and tolerated the procedure well. Blood cultures on the one of 2 was positive for coag negative. Repeat cultures on the were negative as well as urine culture from the negative. The patient is on normal saline at 100 mL an hour. The patient's creatinine has improved back down to baseline. Tolerating the fluids well. Renal ultrasound showed a right kidney of 12.6 cm and left kidney of 9.1 cm with asymmetric cortical atrophy of the left kidney as compared to the right. The patient's appetite is good. Son in the room and I answered appropriate questions. PAST MEDICAL HISTORY: Stroke in the past, CKD stage III with baseline creatinine of 1.4-1.5, dementia, Parkinson's. PAST SURGICAL HISTORY: Cataract surgery, tonsillectomy, hysterectomy, tubal ligation and recent nail to the right hip during this hospitalization. FAMILY HISTORY: Significant for heart disease and cancer. SOCIAL HISTORY: No smoking, no alcohol, no drugs. REVIEW OF SYSTEMS: No headaches, no blurry vision, no dysphagia, no chest pain, no shortness of breath, no nausea or vomiting, no diarrhea or constipation. Does have limited movement of the right hip status post surgery. Pain relatively well controlled. All other review of systems is otherwise negative. CURRENT MEDICATIONS: Normal saline at 100 mL an hour, Norvasc 5 mg a day, Boost 1 can p.o. t.i.d., Lovenox 30 mg subQ q.24, Plavix 75 mg daily, Pravachol 20 mg at night, senna 2 tabs at night, Sinemet 2 tabs p.o. t.i.d., Aricept 10 mg p.o. daily, Claritin 10 mg p.o. daily. PHYSICAL EXAMINATION: VITAL SIGNS: Temperature 36.3, pulse 70, respiratory rate 16, blood pressure is 168/72. Satting 96% on room air. GENERAL: Awake, alert, oriented x2. EYES: No scleral icterus. ENT: Moist mucous membranes. NECK: Supple. PULMONARY: Decreased breath sounds at the bases. CARDIAC: Regular rate and rhythm. ABDOMEN: Bowel sounds positive, soft, nontender. EXTREMITIES: Right hip bandaged. NEUROLOGICALLY: Nonfocal. Decreased movement of the right lower extremity. DERM: No rash or ulcers noted. LABORATORY DATA: Sodium was 143, potassium 3.7, chloride is 109, bicarbonate is 25, BUN is 24, creatinine is 1.4, glucose is 159, calcium is 8.6. White count 7.7, H&H 9.6 and 29.7, platelet count is 249. UA is bland. IMPRESSION AND PLAN: 1. Acute kidney injury on chronic kidney disease, stage 3 in the setting of 1 dose of vancomycin who appears to have had acute tubular necrosis like episode with a creatinine worsened from 0.99 to 1.6 to 1.7, now down to 1.4. Would like to reduce the rate of the fluids to 50 mL an hour and then consider stopping IV fluids tomorrow, has good urine output, which is clear. Does have an incidental finding of medical renal disease on renal us, which is not surprising given her age and comorbidities and does have some underlying CKD stage III at baseline. For now, lower rate of IV fluids, appears to be clinically improving, tolerating the IV fluids well. I appreciate consultation. GOVIND
[2017-02-28] MEDS: PRAVASTATIN SOD 20 MG TAB PO SCH (21:36)
[2017-02-28] MEDS: DOCUSATE SODIUM/SENNA 50/8.6MG TAB PO SCH (21:36)
--- NOTE | 2017-02-28 23:41 | Progress Note ---
Medicine Progress Note Date & Time of Visit: Feb 28, 2017 at 15:16. Subjective 87 year old female with history of Parkinson's disease with dementia and h/o CVA with LUE weakness presents s/p mechanical fall at her [facility]. She has persistent R shoulder pain also when putting her arms overhead and mechanism of fall makes it likely that she carmelo her shoulder on the way down in an effort to catch herself. She is s/p trochanteric nailing on 02/20 for closed R hip fracture. Around post-op Day 7 she developed a fever with CXR revealing PNA. She was treated with a course of Levaquin with improvement of all symptoms -denies any pain today -tolerating PO -very weak and reports some "lameness" to her traps area Objective Last 8 Hrs Date Time Temp Pulse Resp B/P (MAP) Pulse Ox O2 Delivery O2 Flow Rate FiO2 02/28/17 15:12 36.7 70 18 129/74 (92) 96 Room Air 02/28/17 14:15 72 16 95 Room Air 02/28/17 07:35 Room Air Physical Exam: GEN: WNWD, in no acute distress, alert and appropriate but very slow to respond and speaks as if she is in a fog. HEENT: NC/AT, PERRL, normal sclerae, EOMI, MMM CARDIO: reg rate, S1/2 heard without m/g/r LUNGS: CTA bilaterally, no crackles, rales or wheezes, good diaphragmatic excursion ABD: soft, non-tender, non-distended, no rebound or guarding EXTREMITY: RP and DP palpable 2+ bilat, no LE swelling or edema, extremities are warm and well-perfused, NVI. Dressing to R hip is c/d/i NEURO: CN 2-12 grossly intact, sensation intact throughout MUSC: moves all extremities equally SKIN: warm and dry Laboratory Results: 02/28/17 05:48 Red Blood Count 3.21, Mean Corpuscular Volume 92.5, Mean Corpuscular Hemoglobin 29.9, Mean Corpuscular Hemoglobin Concent 32.3, Mean Platelet Volume 10.1, Neutrophils (%) (Auto) 74.1, Lymphocytes (%) (Auto) 11.1, Monocytes (%) (Auto) 10.6, Eosinophils (%) (Auto) 3.0, Basophils (%) (Auto) 0.3, Neutrophils # (Auto ) 5.73, Lymphocytes # (Auto) 0.86, Monocytes # (Auto) 0.82, Eosinophils # (Auto ) 0.23, Basophils # (Auto) 0.02 02/28/17 05:48 Test 02/20/17 05:30 02/20/17 16:45 02/27/17 07:58 02/27/17 15:50 Estimated Average Glucose 137 mg/dl Hemoglobin A1c 6.4 % (4.5-5.6) 25-Hydroxy Vitamin D Total 30.9 ng/ml (30-100) Prothrombin Time 10.5 SECONDS (9.0-12.0) Prothromb Time International Ratio 1.0 (0.9-1.1) Activated Partial Thromboplast Time 25.7 SECONDS (21.0-31.0) Partial Thromboplastin Ratio 1.0 Bedside Glucose 166 mg/dl (70-90) Urine Color YELLOW Urine Appearance CLEAR (CLEAR) Urine pH 6.5 (4.5-7.5) Urine Specific [place] 1.012 (1.000-1.030) Urine Protein NEG (NEG) Urine Glucose (UA) NEG (NEG) Urine Ketones NEG (NEG) Urine Occult Blood NEG (NEG) Urine Nitrite NEG (NEG) Urine Bilirubin NEG (NEG) Urine Urobilinogen NEG (NEG) Urine Leukocyte Esterase NEG (NEG) Test 02/28/17 05:48 White Blood Count 7.73 K/uL (4.8-10.8) Red Blood Count 3.21 M/uL (4.2-5.4) Hemoglobin 9.6 g/dL (12.0-16.0) Hematocrit 29.7 % (37-47) Mean Corpuscular Volume 92.5 fL (80-100) Mean Corpuscular Hemoglobin 29.9 pg (25-34) Mean Corpuscular Hemoglobin Concent 32.3 g/dl (32-36) Platelet Count 249 K/uL (130-400) Mean Platelet Volume 10.1 fL (7.4-10.4) Neutrophils (%) (Auto) 74.1 % Lymphocytes (%) (Auto) 11.1 % Monocytes (%) (Auto) 10.6 % Eosinophils (%) (Auto) 3.0 % Basophils (%) (Auto) 0.3 % Neutrophils # (Auto) 5.73 K/uL (1.4-6.5) Lymphocytes # (Auto) 0.86 K/uL (1.2-3.4) Monocytes # (Auto) 0.82 K/uL (0.11-0.59) Eosinophils # (Auto) 0.23 K/uL (0-0.5) Basophils # (Auto) 0.02 K/uL (0-0.2) RDW Standard Deviation 47.5 fL (36.4-46.3) RDW Coefficient of Variation 14.2 % (11.5-14.5) Immature Granulocyte % (Auto) 0.9 % Immature Granulocyte # (Auto) 0.07 K/uL (0.00-0.02) Anion Gap 9.0 mmol/L (3-11) Est Creatinine Clear Calc Drug Dose 28.1 ml/min Estimated GFR () 39.3 Estimated GFR (Non- 33.9 BUN/Creatinine Ratio 17.0 (10-20) Calcium Level 8.6 mg/dl (8.5-10.1) Date/Time Source Procedure Growth Status 02/25/17 10:43 Blood Blood Culture - Preliminary NO GROWTH TO DATE. Resulted 02/20/17 09:10 Nasal MRSA DNA Surveillance Screen - Final Specimen Negative for MRSA by DNA Probe Complete 02/23/17 11:00 Urine,Catheterized Urine Culture - Final NO GROWTH - LESS THAN 1,000 COLONIES/ML Complete Last 24 Hours Test 02/27/17 15:50 02/28/17 05:48 Urine Color YELLOW Urine Appearance CLEAR Urine pH 6.5 Urine Specific [place] 1.012 Urine Protein NEG Urine Glucose (UA) NEG Urine Ketones NEG Urine Occult Blood NEG Urine Nitrite NEG Urine Bilirubin NEG Urine Urobilinogen NEG Urine Leukocyte Esterase NEG White Blood Count 7.73 K/uL Red Blood Count 3.21 M/uL Hemoglobin 9.6 g/dL Hematocrit 29.7 % Mean Corpuscular Volume 92.5 fL Mean Corpuscular Hemoglobin 29.9 pg Mean Corpuscular Hemoglobin Concent 32.3 g/dl Platelet Count 249 K/uL Mean Platelet Volume 10.1 fL Neutrophils (%) (Auto) 74.1 % Lymphocytes (%) (Auto) 11.1 % Monocytes (%) (Auto) 10.6 % Eosinophils (%) (Auto) 3.0 % Basophils (%) (Auto) 0.3 % Neutrophils # (Auto) 5.73 K/uL Lymphocytes # (Auto) 0.86 K/uL Monocytes # (Auto) 0.82 K/uL Eosinophils # (Auto) 0.23 K/uL Basophils # (Auto) 0.02 K/uL RDW Standard Deviation 47.5 fL RDW Coefficient of Variation 14.2 % Immature Granulocyte % (Auto) 0.9 % Immature Granulocyte # (Auto) 0.07 K/uL Sodium Level 143 mmol/L Potassium Level 3.7 mmol/L Chloride Level 109 mmol/L Carbon Dioxide Level 25 mmol/L Anion Gap 9.0 mmol/L Blood Urea Nitrogen 24 mg/dl Creatinine 1.40 mg/dl Est Creatinine Clear Calc Drug Dose 28.1 ml/min Estimated GFR () 39.3 Estimated GFR (Non- 33.9 BUN/Creatinine Ratio 17.0 Random Glucose 159 mg/dl Calcium Level 8.6 mg/dl Assessment & Plan 87 year old female with history of Parkinson's disease with dementia and h/o CVA with LUE weakness presents s/p mechanical fall at her [facility]. She has persistent R shoulder pain also when putting her arms overhead and mechanism of fall makes it likely that she carmelo her shoulder on the way down in an effort to catch herself. She is s/p trochanteric nailing on 02/20 for closed R hip fracture. Around post-op Day 7 she developed a fever with CXR revealing PNA. She was treated with a course of Levaquin with improvement of all symptoms. 1. R hip fracture s/p ORIF 2. Fever-post op setting 2/2 pneumonia-resolved since abx course given. F/u with CXR in 4-6 weeks as outpatient to ensure resolution. Stop reg scheduled nebs. 3. Acute renal failure-in setting of CKD III, poss pre-renal etiology. Decreased to 1.4 from 1.7 yesterday. Per Nephro this is around her baseline, actually. Cont small amount of IVF overnight and reassess PRP in am. 4. Anemia-poss 2/2 acute blood loss anemia 2/2 surgery, stable, no indication for transfusion at this time. 5. R knee pain-resolved today; no fractures on xray 6. R shoulder pain-possibly carmelo it on the way to the floor during her fall. Pain with overhead press and limited exam as patient is very weak. Ordered xray to rule out fracture for am. Cont PT/OT 7. HTN-Amlodipine 5mg started during this hospitalization. Has no h/o HTN. PRN Clonidine. 8. Parkinson's disease with dementia-likely multifactorial with acute infection , ARF and hospital delirium-cont good day/night cycles. Cont Sinemet and Aricept 9. h/o CVA with residual LUE weakness and difficulty accomplishing fine motor takss with L hand. Plavix has been restarted post-op. Pravastatin continued. 10. Metabolic syndrome-A1C 6.4. Cont ADA diet. 11. Vit D def-cont supplementation DVT PROPHYLAXIS Lovenox SCDs in place Disposition anticipate d/c to rehab when crea improves follows with Dr. Doan for Primary Care follow up with Ortho Dr. Faby Perez DO [facility] Hospitalist Continued [facility] stay due to: ambulation difficulties, other (Fixation of fractured hip 02/20/2017) Discharge planning: uncertain Consultants: Ortho Current Inpatient Medications: Current Inpatient Medications Medications (Trade) Dose Ordered Sig/[place] Route Start Time Stop Time Status Last Admin Dose Admin Acetaminophen (Tylenol Tab) 650 mg Q4H PRN PO 02/20/17 05:00 03/22/17 04:59 02/28/17 03:11 650 MG Tramadol HCl (Ultram Tab) 25 mg Q6H PRN PO 02/20/17 06:00 03/22/17 05:59 02/22/17 10:23 25 MG Hydromorphone HCl (Dilaudid Inj) 0.5 mg Q4H PRN IV 02/20/17 06:00 03/06/17 05:59 Carbidopa/Levodopa (Sinemet 25/ 100MG Tab) 2 tab TID PO 02/20/17 14:00 03/22/17 13:59 02/28/17 13:39 2 TAB Donepezil HCl (Aricept Tab) 10 mg DAILY PO 02/20/17 09:00 03/22/17 08:59 02/28/17 09:24 10 MG Loratadine (Claritin Tab) 10 mg DAILY PO 02/20/17 09:00 03/22/17 08:59 02/28/17 09:24 10 MG Pravastatin Sodium (Pravachol Tab) 20 mg HS PO 02/20/17 21:00 03/22/17 20:59 02/27/17 21:44 20 MG Naloxone HCl (Narcan Inj) 0.1 mg PRN PRN IV 02/20/17 08:00 03/22/17 07:59 Senna/Docusate Sodium (Senokot S Tab) 2 tab HS PO 02/20/17 21:00 03/22/17 20:59 02/26/17 20:54 2 TAB Polyethylene (Miralax Powder Packet) 17 gm DAILY PRN PO 02/20/17 08:00 03/22/17 07:59 02/23/17 12:28 17 GM Magnesium Hydroxide (Milk Of Magnesia Susp) 30 ml DAILY PRN PO 02/20/17 08:00 03/22/17 07:59 02/23/17 19:56 30 ML Bisacodyl (Dulcolax Supp) 10 mg DAILY PRN [place] 02/20/17 08:00 03/22/17 07:59 Sodium Biphosphate/ Sodium Phosphate (Fleet Enema) 132 ml PRN PRN [place] 02/20/17 08:00 Ondansetron HCl (Zofran Inj) 4 mg Q6H PRN IV 02/20/17 15:30 03/22/17 15:29 Hydromorphone HCl (Dilaudid Inj) 0.25 mg Q20M PRN IV 02/20/17 15:30 03/06/17 15:29 Hydromorphone HCl (Dilaudid Inj) 0.5 mg Q20M PRN IV 02/20/17 15:30 03/06/17 15:29 Clonidine HCl (Catapres Tab) 0.1 mg Q6H PRN PO 02/21/17 18:00 03/23/17 17:59 02/27/17 23:25 0.1 MG Clopidogrel Bisulfate (plAVix TAB) 75 mg QAM PO 02/23/17 09:00 03/25/17 08:59 02/28/17 09:24 75 MG Lactulose (Chronulac Syrup) 15 gm TID PRN PO 02/23/17 08:45 03/25/17 08:44 Enoxaparin Sodium (Lovenox Inj) 30 mg Q24H SQ 02/24/17 09:00 03/26/17 08:59 02/28/17 09:25 30 MG Amlodipine Besylate (Norvasc Tab) 5 mg QAM PO 02/25/17 09:00 03/27/17 08:59 02/28/17 09:24 5 MG Levalbuterol (Xopenex 1.25MG/ 0.5ML Neb) 1.25 mg Q6R INH 02/24/17 11:00 03/26/17 10:59 02/28/17 14:15 1.25 MG Enteral Nutritional Formula (Boost) 1 can TIDM PO 02/24/17 17:45 03/26/17 13:59 02/28/17 12:40 1 CAN Sodium Chloride 1,000 ml @ 50 mls/hr Q20H IV 02/26/17 08:00 03/28/17 07:59 02/28/17 09:30 100 MLS/HR
[2017-03-01] MEDS: SODIUM CHLORIDE 0.9% 1000ML 1,000 ML IV SCH ×2 (00:11→05:30)
[2017-03-01 07:22] VITALS: BP_SYST 184; BP_SYST 191; BP_DIAS 76; BP_DIAS 81; PULSE 75; TEMP 37.1; O2SAT 91
[2017-03-01 07:33] LABS: BASO % 0.4 %; BASO ABS # 0.03 K/uL (0-0.2); COMPLETE YES; EOS % 3.5 %; HEMATOCRIT 29.6 % (37-47); LYMPH % 17.1 %; LYMPH ABS # 1.31 K/uL (1.2-3.4); MEAN CELL VOLUME 92.2 fL (80-100); MEAN CORPUSCULAR HEMOGLOBIN 29.6 pg (25-34); MEAN CORPUSCULAR HGB CONC 32.1 g/dl (32-36); MEAN PLATELET VOLUME 9.9 fL (7.4-10.4); MONO % 10.4 %; NEUT % 67.6 %; PLATELET COUNT 271 K/uL (130-400); RED BLOOD COUNT 3.21 M/uL (4.2-5.4); WHITE BLOOD COUNT 7.68 K/uL (4.8-10.8)
[2017-03-01] MEDS: AMLODIPINE BESYLATE 5 MG TAB PO SCH (07:49)
[2017-03-01 08:05] LABS: BUN/CREATININE RATIO 13.7 (10-20); CALCIUM 8.3 mg/dl (8.5-10.1); CREATININE 1.5 mg/dl (0.60-1.20); POTASSIUM 3.7 mmol/L (3.5-5.1)
--- NOTE | 2017-03-01 08:23 | DIAGNOSTIC IMAGING REPORT ---
RIGHT SHOULDER MIN 2 VIEWS ROUTINE CLINICAL HISTORY: Right shoulder pain. COMPARISON: None FINDINGS: Alignment of the right shoulder is anatomic. There is no acute fracture. There is mild to moderate arthritis of the acromioclavicular and glenohumeral joints. There is subacromial spurring. IMPRESSION: 1. No acute fracture or dislocation of the right shoulder. 2. 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 Electronically signed by: Darryl Curtis M.D. 03/01/2017 8:22 AM Dictated Date/Time: 03/01/2017 8:21 AM
[2017-03-01] MEDS: BOOST VANILLA PO SCH ×6 (08:47→17:46)
[2017-03-01 08:50] VITALS: BP 151/72; PULSE 81
[2017-03-01] MEDS: LORATADINE 10 MG TAB PO SCH (08:50)
[2017-03-01] MEDS: DONEPEZIL HCL 10 MG TAB PO SCH (08:51)
[2017-03-01] MEDS: CLOPIDOGREL BISULFATE 75 MG TAB PO SCH (08:51)
[2017-03-01] MEDS: CARBIDOPA/LEVODOPA 25/100MG TAB PO SCH ×3 (08:51→20:58)
[2017-03-01] MEDS: ENOXAPARIN 30 MG/0.3 ML SYR SQ SCH (08:52)
[2017-03-01] MEDS: ACETAMINOPHEN 325 MG TAB PO PRN (10:21)
[2017-03-01 15:08] VITALS: BP 163/85; PULSE 77; TEMP 36.5; O2SAT 95
--- NOTE | 2017-03-01 15:20 | Nephrology Progress Note ---
Nephrology Progress Note Date of Service: Mar 01, 2017. Subjective 87 yo female with prolonged hospitilization, seen this am, resting comfortably with no specific complaints. pain well controlled. no sob. Objective Date Time Temp Pulse Resp B/P (MAP) Pulse Ox O2 Delivery O2 Flow Rate FiO2 03/01/17 15:08 36.5 77 18 163/85 (111) 95 Room Air 03/01/17 08:50 81 151/72 (98) 03/01/17 08:45 Room Air 03/01/17 07:22 37.1 75 18 191/81 (117) 91 Room Air 184/76 (112) 02/28/17 23:50 Room Air 02/28/17 22:55 36.6 87 18 163/88 (113) 92 Room Air 02/28/17 19:40 Room Air 02/28/17 15:45 Room Air Physical Exam: General-aaox2 Eyes-no scleral icterus ENT-mmm Neck-supple Lungs-decreased breath sounds at bases Heart-rrr Abdomen-bs+ s/nt/nd Extremities-+1 edema, right hip c/d/i Neuro-chronic lue weakness Current Inpatient Medications Medications (Trade) Dose Ordered Sig/[place] Route Start Time Stop Time Status Last Admin Dose Admin Acetaminophen (Tylenol Tab) 650 mg Q4H PRN PO 02/20/17 05:00 03/22/17 04:59 03/01/17 10:21 650 MG Tramadol HCl (Ultram Tab) 25 mg Q6H PRN PO 02/20/17 06:00 03/22/17 05:59 02/22/17 10:23 25 MG Hydromorphone HCl (Dilaudid Inj) 0.5 mg Q4H PRN IV 02/20/17 06:00 03/06/17 05:59 Carbidopa/Levodopa (Sinemet 25/ 100MG Tab) 2 tab TID PO 02/20/17 14:00 03/22/17 13:59 03/01/17 13:32 2 TAB Donepezil HCl (Aricept Tab) 10 mg DAILY PO 02/20/17 09:00 03/22/17 08:59 03/01/17 08:51 10 MG Loratadine (Claritin Tab) 10 mg DAILY PO 02/20/17 09:00 03/22/17 08:59 03/01/17 08:50 10 MG Pravastatin Sodium (Pravachol Tab) 20 mg HS PO 02/20/17 21:00 03/22/17 20:59 02/28/17 21:36 20 MG Naloxone HCl (Narcan Inj) 0.1 mg PRN PRN IV 02/20/17 08:00 03/22/17 07:59 Senna/Docusate Sodium (Senokot S Tab) 2 tab HS PO 02/20/17 21:00 03/22/17 20:59 02/26/17 20:54 2 TAB Polyethylene (Miralax Powder Packet) 17 gm DAILY PRN PO 02/20/17 08:00 03/22/17 07:59 02/23/17 12:28 17 GM Magnesium Hydroxide (Milk Of Magnesia Susp) 30 ml DAILY PRN PO 02/20/17 08:00 03/22/17 07:59 02/23/17 19:56 30 ML Bisacodyl (Dulcolax Supp) 10 mg DAILY PRN [place] 02/20/17 08:00 03/22/17 07:59 Sodium Biphosphate/ Sodium Phosphate (Fleet Enema) 132 ml PRN PRN [place] 02/20/17 08:00 Ondansetron HCl (Zofran Inj) 4 mg Q6H PRN IV 02/20/17 15:30 03/22/17 15:29 Hydromorphone HCl (Dilaudid Inj) 0.25 mg Q20M PRN IV 02/20/17 15:30 03/06/17 15:29 Hydromorphone HCl (Dilaudid Inj) 0.5 mg Q20M PRN IV 02/20/17 15:30 03/06/17 15:29 Clonidine HCl (Catapres Tab) 0.1 mg Q6H PRN PO 02/21/17 18:00 03/23/17 17:59 02/27/17 23:25 0.1 MG Clopidogrel Bisulfate (plAVix TAB) 75 mg QAM PO 02/23/17 09:00 03/25/17 08:59 03/01/17 08:51 75 MG Lactulose (Chronulac Syrup) 15 gm TID PRN PO 02/23/17 08:45 03/25/17 08:44 Enoxaparin Sodium (Lovenox Inj) 30 mg Q24H SQ 02/24/17 09:00 03/26/17 08:59 03/01/17 08:52 30 MG Amlodipine Besylate (Norvasc Tab) 5 mg QAM PO 02/25/17 09:00 03/27/17 08:59 03/01/17 07:49 5 MG Enteral Nutritional Formula (Boost) 1 can TIDM PO 02/24/17 17:45 03/26/17 13:59 03/01/17 13:33 1 CAN Last 24 Hours Test 03/01/17 06:48 03/01/17 08:33 White Blood Count 7.68 K/uL Red Blood Count 3.21 M/uL Hemoglobin 9.5 g/dL Hematocrit 29.6 % Mean Corpuscular Volume 92.2 fL Mean Corpuscular Hemoglobin 29.6 pg Mean Corpuscular Hemoglobin Concent 32.1 g/dl Platelet Count 271 K/uL Mean Platelet Volume 9.9 fL Neutrophils (%) (Auto) 67.6 % Lymphocytes (%) (Auto) 17.1 % Monocytes (%) (Auto) 10.4 % Eosinophils (%) (Auto) 3.5 % Basophils (%) (Auto) 0.4 % Neutrophils # (Auto) 5.19 K/uL Lymphocytes # (Auto) 1.31 K/uL Monocytes # (Auto) 0.80 K/uL Eosinophils # (Auto) 0.27 K/uL Basophils # (Auto) 0.03 K/uL RDW Standard Deviation 48.9 fL RDW Coefficient of Variation 14.3 % Immature Granulocyte % (Auto) 1.0 % Immature Granulocyte # (Auto) 0.08 K/uL Sodium Level 144 mmol/L Potassium Level 3.7 mmol/L Chloride Level 110 mmol/L Carbon Dioxide Level 25 mmol/L Anion Gap 9.0 mmol/L Blood Urea Nitrogen 21 mg/dl Creatinine 1.50 mg/dl Est Creatinine Clear Calc Drug Dose 26.2 ml/min Estimated GFR () 36.2 Estimated GFR (Non- 31.2 BUN/Creatinine Ratio 13.7 Random Glucose 127 mg/dl Calcium Level 8.3 mg/dl Bedside Glucose 139 mg/dl Assessment & Plan kash on ckd stage 3 with creatinine back to baseline. stopped iv fluids this morning. encourage eating and drinking on her own.
[2017-03-01] MEDS: PRAVASTATIN SOD 20 MG TAB PO SCH (20:58)
[2017-03-01] MEDS: DOCUSATE SODIUM/SENNA 50/8.6MG TAB PO SCH (20:59)
[2017-03-01 22:45] VITALS: BP 171/82; PULSE 79; TEMP 36.8; O2SAT 92
--- NOTE | 2017-03-01 23:05 | Progress Note ---
Medicine Progress Note Date & Time of Visit: Mar 01, 2017 at 22:58. Subjective 87 year old female with history of Parkinson's disease with dementia and h/o CVA with LUE weakness presents s/p mechanical fall at her [facility]. She has persistent R shoulder pain also when putting her arms overhead and mechanism of fall makes it likely that she carmelo her shoulder on the way down in an effort to catch herself. She is s/p trochanteric nailing on 02/20 for closed R hip fracture. Post op course complicated by pneumonia. She was treated with a course of Levaquin with improvement of all symptoms. Improvement in energy and renal function. -denies any symptoms today -feels well in general -we discussed the results of her shoulder xray this morning. Objective Last 8 Hrs Date Time Temp Pulse Resp B/P (MAP) Pulse Ox O2 Delivery O2 Flow Rate FiO2 03/01/17 16:00 Room Air 03/01/17 15:08 36.5 77 18 163/85 (111) 95 Room Air Physical Exam: GEN: WNWD, in no acute distress, alert and appropriate but very slow to respond but improved today. HEENT: NC/AT, PERRL, normal sclerae, MMM CARDIO: reg rate, S1/2 heard without m/g/r LUNGS: CTA bilaterally, no crackles, rales or wheezes, good diaphragmatic excursion ABD: soft, non-tender, non-distended, no rebound or guarding EXTREMITY: RP and DP palpable 2+ bilat, no LE swelling or edema, extremities are warm and well-perfused, NVI. Dressing to R hip is c/d/i NEURO: CN 2-12 grossly intact, sensation intact throughout MUSC: moves all extremities equally SKIN: warm and dry Laboratory Results: 03/01/17 06:48 Red Blood Count 3.21, Mean Corpuscular Volume 92.2, Mean Corpuscular Hemoglobin 29.6, Mean Corpuscular Hemoglobin Concent 32.1, Mean Platelet Volume 9.9, Neutrophils (%) (Auto) 67.6, Lymphocytes (%) (Auto) 17.1, Monocytes (%) (Auto) 10.4, Eosinophils (%) (Auto) 3.5, Basophils (%) (Auto) 0.4, Neutrophils # (Auto ) 5.19, Lymphocytes # (Auto) 1.31, Monocytes # (Auto) 0.80, Eosinophils # (Auto ) 0.27, Basophils # (Auto) 0.03 03/01/17 06:48 Test 02/20/17 05:30 02/20/17 16:45 02/27/17 15:50 03/01/17 06:48 Estimated Average Glucose 137 mg/dl Hemoglobin A1c 6.4 % (4.5-5.6) 25-Hydroxy Vitamin D Total 30.9 ng/ml (30-100) Prothrombin Time 10.5 SECONDS (9.0-12.0) Prothromb Time International Ratio 1.0 (0.9-1.1) Activated Partial Thromboplast Time 25.7 SECONDS (21.0-31.0) Partial Thromboplastin Ratio 1.0 Urine Color YELLOW Urine Appearance CLEAR (CLEAR) Urine pH 6.5 (4.5-7.5) Urine Specific [place] 1.012 (1.000-1.030) Urine Protein NEG (NEG) Urine Glucose (UA) NEG (NEG) Urine Ketones NEG (NEG) Urine Occult Blood NEG (NEG) Urine Nitrite NEG (NEG) Urine Bilirubin NEG (NEG) Urine Urobilinogen NEG (NEG) Urine Leukocyte Esterase NEG (NEG) White Blood Count 7.68 K/uL (4.8-10.8) Red Blood Count 3.21 M/uL (4.2-5.4) Hemoglobin 9.5 g/dL (12.0-16.0) Hematocrit 29.6 % (37-47) Mean Corpuscular Volume 92.2 fL (80-100) Mean Corpuscular Hemoglobin 29.6 pg (25-34) Mean Corpuscular Hemoglobin Concent 32.1 g/dl (32-36) Platelet Count 271 K/uL (130-400) Mean Platelet Volume 9.9 fL (7.4-10.4) Neutrophils (%) (Auto) 67.6 % Lymphocytes (%) (Auto) 17.1 % Monocytes (%) (Auto) 10.4 % Eosinophils (%) (Auto) 3.5 % Basophils (%) (Auto) 0.4 % Neutrophils # (Auto) 5.19 K/uL (1.4-6.5) Lymphocytes # (Auto) 1.31 K/uL (1.2-3.4) Monocytes # (Auto) 0.80 K/uL (0.11-0.59) Eosinophils # (Auto) 0.27 K/uL (0-0.5) Basophils # (Auto) 0.03 K/uL (0-0.2) RDW Standard Deviation 48.9 fL (36.4-46.3) RDW Coefficient of Variation 14.3 % (11.5-14.5) Immature Granulocyte % (Auto) 1.0 % Immature Granulocyte # (Auto) 0.08 K/uL (0.00-0.02) Anion Gap 9.0 mmol/L (3-11) Est Creatinine Clear Calc Drug Dose 26.2 ml/min Estimated GFR () 36.2 Estimated GFR (Non- 31.2 BUN/Creatinine Ratio 13.7 (10-20) Calcium Level 8.3 mg/dl (8.5-10.1) Test 03/01/17 08:33 Bedside Glucose 139 mg/dl (70-90) Date/Time Source Procedure Growth Status 02/25/17 10:43 Blood Blood Culture - Preliminary NO GROWTH TO DATE. Resulted 02/20/17 09:10 Nasal MRSA DNA Surveillance Screen - Final Specimen Negative for MRSA by DNA Probe Complete 02/23/17 11:00 Urine,Catheterized Urine Culture - Final NO GROWTH - LESS THAN 1,000 COLONIES/ML Complete Last 24 Hours Test 03/01/17 06:48 03/01/17 08:33 White Blood Count 7.68 K/uL Red Blood Count 3.21 M/uL Hemoglobin 9.5 g/dL Hematocrit 29.6 % Mean Corpuscular Volume 92.2 fL Mean Corpuscular Hemoglobin 29.6 pg Mean Corpuscular Hemoglobin Concent 32.1 g/dl Platelet Count 271 K/uL Mean Platelet Volume 9.9 fL Neutrophils (%) (Auto) 67.6 % Lymphocytes (%) (Auto) 17.1 % Monocytes (%) (Auto) 10.4 % Eosinophils (%) (Auto) 3.5 % Basophils (%) (Auto) 0.4 % Neutrophils # (Auto) 5.19 K/uL Lymphocytes # (Auto) 1.31 K/uL Monocytes # (Auto) 0.80 K/uL Eosinophils # (Auto) 0.27 K/uL Basophils # (Auto) 0.03 K/uL RDW Standard Deviation 48.9 fL RDW Coefficient of Variation 14.3 % Immature Granulocyte % (Auto) 1.0 % Immature Granulocyte # (Auto) 0.08 K/uL Sodium Level 144 mmol/L Potassium Level 3.7 mmol/L Chloride Level 110 mmol/L Carbon Dioxide Level 25 mmol/L Anion Gap 9.0 mmol/L Blood Urea Nitrogen 21 mg/dl Creatinine 1.50 mg/dl Est Creatinine Clear Calc Drug Dose 26.2 ml/min Estimated GFR () 36.2 Estimated GFR (Non- 31.2 BUN/Creatinine Ratio 13.7 Random Glucose 127 mg/dl Calcium Level 8.3 mg/dl Bedside Glucose 139 mg/dl Assessment & Plan 87 year old female with history of Parkinson's disease with dementia and h/o CVA with LUE weakness presents s/p mechanical fall at her [facility]. She has persistent R shoulder pain also when putting her arms overhead and mechanism of fall makes it likely that she carmelo her shoulder on the way down in an effort to catch herself. She is s/p trochanteric nailing on 02/20 for closed R hip fracture. Post op course complicated by pneumonia. She was treated with a course of Levaquin with improvement of all symptoms. Improvement in energy and renal function. 1. R hip fracture s/p ORIF-pain well-controlled. 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 2. Fever-post op setting 2/2 pneumonia-resolved since abx course given. F/u with CXR in 4-6 weeks as outpatient to ensure resolution. Stopped reg scheduled nebs. 3. Acute renal failure-resolved back to baseline. Nephro singing off. 4. Anemia-poss 2/2 acute blood loss anemia 2/2 surgery, stable, no indication for transfusion at this time. H/H stable. 5. R knee pain-resolved; no fractures on xray 6. R shoulder pain-possibly carmelo it on the way to the floor during her fall. Pain with overhead press and limited exam as patient is very weak. Xray this morning with no fracture present. Cont PT 7. HTN-Amlodipine 5mg started during this hospitalization. Has no h/o HTN. PRN Clonidine. 8. Parkinson's disease with dementia-likely multifactorial with acute infection , ARF and hospital delirium-cont good day/night cycles. Cont Sinemet and Aricept 9. h/o CVA with residual LUE weakness and difficulty accomplishing fine motor tasks with L hand. Plavix has been restarted post-op. Pravastatin continued. 10. Metabolic syndrome-A1C 6.4. Cont ADA diet. 11. Vit D def-cont supplementation DVT PROPHYLAXIS Lovenox SCDs in place Disposition anticipate d/c to rehab on Wed follows with Dr. Doan for Primary Care follow up with Ortho Dr. Faby Perez DO [facility] Hospitalist Continued [facility] stay due to: ambulation difficulties, other (Fixation of fractured hip 02/20/2017) Discharge planning: uncertain Consultants: Ortho Current Inpatient Medications: Current Inpatient Medications Medications (Trade) Dose Ordered Sig/[place] Route Start Time Stop Time Status Last Admin Dose Admin Acetaminophen (Tylenol Tab) 650 mg Q4H PRN PO 02/20/17 05:00 03/22/17 04:59 03/01/17 10:21 650 MG Tramadol HCl (Ultram Tab) 25 mg Q6H PRN PO 02/20/17 06:00 03/22/17 05:59 02/22/17 10:23 25 MG Hydromorphone HCl (Dilaudid Inj) 0.5 mg Q4H PRN IV 02/20/17 06:00 03/06/17 05:59 Carbidopa/Levodopa (Sinemet 25/ 100MG Tab) 2 tab TID PO 02/20/17 14:00 03/22/17 13:59 03/01/17 20:58 2 TAB Donepezil HCl (Aricept Tab) 10 mg DAILY PO 02/20/17 09:00 03/22/17 08:59 03/01/17 08:51 10 MG Loratadine (Claritin Tab) 10 mg DAILY PO 02/20/17 09:00 03/22/17 08:59 03/01/17 08:50 10 MG Pravastatin Sodium (Pravachol Tab) 20 mg HS PO 02/20/17 21:00 03/22/17 20:59 03/01/17 20:58 20 MG Naloxone HCl (Narcan Inj) 0.1 mg PRN PRN IV 02/20/17 08:00 03/22/17 07:59 Senna/Docusate Sodium (Senokot S Tab) 2 tab HS PO 02/20/17 21:00 03/22/17 20:59 03/01/17 20:59 2 TAB Polyethylene (Miralax Powder Packet) 17 gm DAILY PRN PO 02/20/17 08:00 03/22/17 07:59 02/23/17 12:28 17 GM Magnesium Hydroxide (Milk Of Magnesia Susp) 30 ml DAILY PRN PO 02/20/17 08:00 03/22/17 07:59 02/23/17 19:56 30 ML Bisacodyl (Dulcolax Supp) 10 mg DAILY PRN HI 02/20/17 08:00 03/22/17 07:59 Sodium Biphosphate/ Sodium Phosphate (Fleet Enema) 132 ml PRN PRN HI 02/20/17 08:00 Ondansetron HCl (Zofran Inj) 4 mg Q6H PRN IV 02/20/17 15:30 03/22/17 15:29 Hydromorphone HCl (Dilaudid Inj) 0.25 mg Q20M PRN IV 02/20/17 15:30 03/06/17 15:29 Hydromorphone HCl (Dilaudid Inj) 0.5 mg Q20M PRN IV 02/20/17 15:30 03/06/17 15:29 Clonidine HCl (Catapres Tab) 0.1 mg Q6H PRN PO 02/21/17 18:00 03/23/17 17:59 02/27/17 23:25 0.1 MG Clopidogrel Bisulfate (plAVix TAB) 75 mg QAM PO 02/23/17 09:00 03/25/17 08:59 03/01/17 08:51 75 MG Lactulose (Chronulac Syrup) 15 gm TID PRN PO 02/23/17 08:45 03/25/17 08:44 Enoxaparin Sodium (Lovenox Inj) 30 mg Q24H SQ 02/24/17 09:00 03/26/17 08:59 03/01/17 08:52 30 MG Amlodipine Besylate (Norvasc Tab) 5 mg QAM PO 02/25/17 09:00 03/27/17 08:59 03/01/17 07:49 5 MG Enteral Nutritional Formula (Boost) 1 can TIDM PO 02/24/17 17:45 03/26/17 13:59 03/01/17 17:46 1 CAN
[2017-03-01] MEDS: CLONIDINE HCL 0.1 MG TAB PO PRN (23:30)
[2017-03-02 01:10] VITALS: BP 163/82; PULSE 78
[2017-03-02 07:16] VITALS: BP 190/75; PULSE 62; TEMP 36.8; O2SAT 92
[2017-03-02] MEDS: BOOST VANILLA PO SCH ×6 (08:15→17:37)
[2017-03-02] MEDS ORDERED: AMLODIPINE BESYLATE 5 MG TAB PO SCH (09:00)
[2017-03-02] MEDS: ENOXAPARIN 30 MG/0.3 ML SYR SQ SCH (09:12)
[2017-03-02] MEDS: LORATADINE 10 MG TAB PO SCH (09:13)
[2017-03-02] MEDS: CARBIDOPA/LEVODOPA 25/100MG TAB PO SCH ×3 (09:13→20:34)
[2017-03-02] MEDS: CLOPIDOGREL BISULFATE 75 MG TAB PO SCH (09:13)
[2017-03-02] MEDS: DONEPEZIL HCL 10 MG TAB PO SCH (09:13)
[2017-03-02 09:15] VITALS: BP 128/67; PULSE 69
[2017-03-02 14:59] VITALS: BP 146/75; PULSE 91; TEMP 36.3; O2SAT 92
[2017-03-02] MEDS: AMLODIPINE BESYLATE 5 MG TAB PO SCH (20:34)
[2017-03-02] MEDS: PRAVASTATIN SOD 20 MG TAB PO SCH (20:34)
[2017-03-02] MEDS: DOCUSATE SODIUM/SENNA 50/8.6MG TAB PO SCH (20:34)
[2017-03-02 20:37] VITALS: BP 145/72; PULSE 70
--- NOTE | 2017-03-02 21:56 | Progress Note ---
Medicine Progress Note Date & Time of Visit: Mar 02, 2017 at 16:07. Subjective 87 year old female with history of Parkinson's disease with dementia and h/o CVA with LUE weakness presents s/p mechanical fall at her [facility]. She has persistent R shoulder pain also when putting her arms overhead and mechanism of fall makes it likely that she carmelo her shoulder on the way down in an effort to catch herself. She is s/p trochanteric nailing on 02/20 for closed R hip fracture. Post op course complicated by pneumonia. She was treated with a course of Levaquin with improvement of all symptoms. Improvement in energy and renal function. -reports improvement in energy today -tolerating PO just fine -mentating better today-- -denies any pain Objective Last 8 Hrs Date Time Temp Pulse Resp B/P (MAP) Pulse Ox O2 Delivery O2 Flow Rate FiO2 03/02/17 15:40 Room Air 03/02/17 14:59 36.3 91 16 146/75 (98) 92 Room Air 03/02/17 09:15 69 128/67 (87) Physical Exam: GEN: WNWD, in no acute distress, alert and appropriate HEENT: NC/AT, pupils are equal and round bilaterally, normal sclerae, MMM CARDIO: reg rate, S1/2 heard without m/g/r LUNGS: CTA bilaterally, no crackles, rales or wheezes, good diaphragmatic excursion ABD: soft, non-tender, non-distended, no rebound or guarding EXTREMITY: RP and DP palpable 2+ bilat, no LE swelling or edema, extremities are warm and well-perfused, NVI. Dressing to R hip is c/d/i-lawrence still in place. NEURO: CN 2-12 grossly intact, sensation intact throughout MUSC: moves all extremities equally SKIN: warm and dry Laboratory Results: 03/01/17 06:48 Red Blood Count 3.21, Mean Corpuscular Volume 92.2, Mean Corpuscular Hemoglobin 29.6, Mean Corpuscular Hemoglobin Concent 32.1, Mean Platelet Volume 9.9, Neutrophils (%) (Auto) 67.6, Lymphocytes (%) (Auto) 17.1, Monocytes (%) (Auto) 10.4, Eosinophils (%) (Auto) 3.5, Basophils (%) (Auto) 0.4, Neutrophils # (Auto ) 5.19, Lymphocytes # (Auto) 1.31, Monocytes # (Auto) 0.80, Eosinophils # (Auto ) 0.27, Basophils # (Auto) 0.03 03/01/17 06:48 Test 02/20/17 05:30 02/20/17 16:45 02/27/17 15:50 03/01/17 06:48 Estimated Average Glucose 137 mg/dl Hemoglobin A1c 6.4 % (4.5-5.6) 25-Hydroxy Vitamin D Total 30.9 ng/ml (30-100) Prothrombin Time 10.5 SECONDS (9.0-12.0) Prothromb Time International Ratio 1.0 (0.9-1.1) Activated Partial Thromboplast Time 25.7 SECONDS (21.0-31.0) Partial Thromboplastin Ratio 1.0 Urine Color YELLOW Urine Appearance CLEAR (CLEAR) Urine pH 6.5 (4.5-7.5) Urine Specific [place] 1.012 (1.000-1.030) Urine Protein NEG (NEG) Urine Glucose (UA) NEG (NEG) Urine Ketones NEG (NEG) Urine Occult Blood NEG (NEG) Urine Nitrite NEG (NEG) Urine Bilirubin NEG (NEG) Urine Urobilinogen NEG (NEG) Urine Leukocyte Esterase NEG (NEG) White Blood Count 7.68 K/uL (4.8-10.8) Red Blood Count 3.21 M/uL (4.2-5.4) Hemoglobin 9.5 g/dL (12.0-16.0) Hematocrit 29.6 % (37-47) Mean Corpuscular Volume 92.2 fL (80-100) Mean Corpuscular Hemoglobin 29.6 pg (25-34) Mean Corpuscular Hemoglobin Concent 32.1 g/dl (32-36) Platelet Count 271 K/uL (130-400) Mean Platelet Volume 9.9 fL (7.4-10.4) Neutrophils (%) (Auto) 67.6 % Lymphocytes (%) (Auto) 17.1 % Monocytes (%) (Auto) 10.4 % Eosinophils (%) (Auto) 3.5 % Basophils (%) (Auto) 0.4 % Neutrophils # (Auto) 5.19 K/uL (1.4-6.5) Lymphocytes # (Auto) 1.31 K/uL (1.2-3.4) Monocytes # (Auto) 0.80 K/uL (0.11-0.59) Eosinophils # (Auto) 0.27 K/uL (0-0.5) Basophils # (Auto) 0.03 K/uL (0-0.2) RDW Standard Deviation 48.9 fL (36.4-46.3) RDW Coefficient of Variation 14.3 % (11.5-14.5) Immature Granulocyte % (Auto) 1.0 % Immature Granulocyte # (Auto) 0.08 K/uL (0.00-0.02) Anion Gap 9.0 mmol/L (3-11) Est Creatinine Clear Calc Drug Dose 26.2 ml/min Estimated GFR () 36.2 Estimated GFR (Non- 31.2 BUN/Creatinine Ratio 13.7 (10-20) Calcium Level 8.3 mg/dl (8.5-10.1) Test 03/01/17 08:33 Bedside Glucose 139 mg/dl (70-90) Date/Time Source Procedure Growth Status 02/25/17 10:43 Blood Blood Culture - Preliminary NO GROWTH TO DATE. Resulted 02/20/17 09:10 Nasal MRSA DNA Surveillance Screen - Final Specimen Negative for MRSA by DNA Probe Complete 02/23/17 11:00 Urine,Catheterized Urine Culture - Final NO GROWTH - LESS THAN 1,000 COLONIES/ML Complete Assessment & Plan 87 year old female with history of Parkinson's disease with dementia and h/o CVA with LUE weakness presents s/p mechanical fall at her [facility]. She has persistent R shoulder pain also when putting her arms overhead and mechanism of fall makes it likely that she carmelo her shoulder on the way down in an effort to catch herself. She is s/p trochanteric nailing on 02/20 for closed R hip fracture. Post op course complicated by pneumonia. She was treated with a course of Levaquin with improvement of all symptoms. Improvement in energy and renal function. 1. R hip fracture s/p ORIF-pain well-controlled. 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 2. Fever-post op setting 2/2 pneumonia-resolved since abx course given. F/u with CXR in 4-6 weeks as outpatient to ensure resolution. Stopped reg scheduled nebs. 3. Acute renal failure-resolved back to baseline. Nephro singing off. 4. Anemia-poss 2/2 acute blood loss anemia 2/2 surgery, stable, no indication for transfusion at this time. H/H stable. 5. R knee pain-resolved; no fractures on xray 6. R shoulder pain-possibly carmelo it on the way to the floor during her fall. Pain with overhead press and limited exam as patient is very weak. Xray this morning with no fracture present. Cont PT 7. HTN-Improved on the 5mg BID dosing. PRN Clonidine. 8. Parkinson's disease with dementia-likely multifactorial with acute infection , ARF and hospital delirium-cont good day/night cycles. Cont Sinemet and Aricept 9. h/o CVA with residual LUE weakness and difficulty accomplishing fine motor tasks with L hand. Plavix has been restarted post-op. Pravastatin continued. 10. Metabolic syndrome-A1C 6.4. Cont ADA diet. 11. Vit D def-cont supplementation DVT PROPHYLAXIS Lovenox SCDs in place Disposition anticipate d/c to rehab on Wed follows with Dr. Doan for Primary Care follow up with Ortho Dr. Faby Perez DO [facility] Hospitalist Continued [facility] stay due to: ambulation difficulties, other (Fixation of fractured hip 02/20/2017) Discharge planning: uncertain Consultants: Ortho Current Inpatient Medications: Current Inpatient Medications Medications (Trade) Dose Ordered Sig/[place] Route Start Time Stop Time Status Last Admin Dose Admin Acetaminophen (Tylenol Tab) 650 mg Q4H PRN PO 02/20/17 05:00 03/22/17 04:59 03/01/17 10:21 650 MG Tramadol HCl (Ultram Tab) 25 mg Q6H PRN PO 02/20/17 06:00 03/22/17 05:59 02/22/17 10:23 25 MG Hydromorphone HCl (Dilaudid Inj) 0.5 mg Q4H PRN IV 02/20/17 06:00 03/06/17 05:59 Carbidopa/Levodopa (Sinemet 25/ 100MG Tab) 2 tab TID PO 02/20/17 14:00 03/22/17 13:59 03/02/17 14:20 2 TAB Donepezil HCl (Aricept Tab) 10 mg DAILY PO 02/20/17 09:00 03/22/17 08:59 03/02/17 09:13 10 MG Loratadine (Claritin Tab) 10 mg DAILY PO 02/20/17 09:00 03/22/17 08:59 03/02/17 09:13 10 MG Pravastatin Sodium (Pravachol Tab) 20 mg HS PO 02/20/17 21:00 03/22/17 20:59 03/01/17 20:58 20 MG Naloxone HCl (Narcan Inj) 0.1 mg PRN PRN IV 02/20/17 08:00 03/22/17 07:59 Senna/Docusate Sodium (Senokot S Tab) 2 tab HS PO 02/20/17 21:00 03/22/17 20:59 03/01/17 20:59 2 TAB Polyethylene (Miralax Powder Packet) 17 gm DAILY PRN PO 02/20/17 08:00 03/22/17 07:59 02/23/17 12:28 17 GM Magnesium Hydroxide (Milk Of Magnesia Susp) 30 ml DAILY PRN PO 02/20/17 08:00 03/22/17 07:59 02/23/17 19:56 30 ML Bisacodyl (Dulcolax Supp) 10 mg DAILY PRN SD 02/20/17 08:00 03/22/17 07:59 Sodium Biphosphate/ Sodium Phosphate (Fleet Enema) 132 ml PRN PRN SD 02/20/17 08:00 Ondansetron HCl (Zofran Inj) 4 mg Q6H PRN IV 02/20/17 15:30 03/22/17 15:29 Hydromorphone HCl (Dilaudid Inj) 0.25 mg Q20M PRN IV 02/20/17 15:30 03/06/17 15:29 Hydromorphone HCl (Dilaudid Inj) 0.5 mg Q20M PRN IV 02/20/17 15:30 03/06/17 15:29 Clonidine HCl (Catapres Tab) 0.1 mg Q6H PRN PO 02/21/17 18:00 03/23/17 17:59 03/01/17 23:30 0.1 MG Clopidogrel Bisulfate (plAVix TAB) 75 mg QAM PO 02/23/17 09:00 03/25/17 08:59 03/02/17 09:13 75 MG Lactulose (Chronulac Syrup) 15 gm TID PRN PO 02/23/17 08:45 03/25/17 08:44 Enoxaparin Sodium (Lovenox Inj) 30 mg Q24H SQ 02/24/17 09:00 03/26/17 08:59 03/02/17 09:12 30 MG Enteral Nutritional Formula (Boost) 1 can TIDM PO 02/24/17 17:45 03/26/17 13:59 03/02/17 12:30 1 CAN Amlodipine Besylate (Norvasc Tab) 5 mg BID PO 03/02/17 21:00 04/01/17 20:59
[2017-03-02 22:55] VITALS: BP 138/76; PULSE 64; TEMP 36.4; O2SAT 95
[2017-03-03 06:52] VITALS: BP 169/77; PULSE 65; O2SAT 93
[2017-03-03 07:19] VITALS: BP 166/82
[2017-03-03] MEDS: ACETAMINOPHEN 325 MG TAB PO PRN (08:03)
[2017-03-03] MEDS: AMLODIPINE BESYLATE 5 MG TAB PO SCH (08:04)
[2017-03-03] MEDS: LORATADINE 10 MG TAB PO SCH (08:04)
[2017-03-03] MEDS: CARBIDOPA/LEVODOPA 25/100MG TAB PO SCH ×2 (08:04→13:52)
[2017-03-03] MEDS: DONEPEZIL HCL 10 MG TAB PO SCH (08:04)
[2017-03-03] MEDS: CLOPIDOGREL BISULFATE 75 MG TAB PO SCH (08:04)
[2017-03-03] MEDS: ENOXAPARIN 30 MG/0.3 ML SYR SQ SCH (08:05)
[2017-03-03] MEDS: BOOST VANILLA PO SCH ×4 (08:17→12:28)
[2017-03-03 10:15] VITALS: BP 117/65; PULSE 76
[2017-03-03 11:45] VITALS: BP 117/65; PULSE 76; TEMP 36.4; O2SAT 93
[2017-03-03] MEDS ORDERED: NRV5 PO (12:48)
--- NOTE | 2017-03-03 12:53 | Discharge Instructions ---
Discharge Instructions Date of Service Mar 03, 2017. Admission Reason for Admission: Rt Hip Fracture Discharge Discharge Diagnosis / Problem: R hip fracture s/p ORIF, Pneumonia, NAHUM Discharge Goals Goal(s): Prevent Disease Progression Activity Recommendations Activity Limitations: per Instructions/Follow-up section . Instructions / Follow-Up Instructions / Follow-Up Please take all medications as instructed. It is recommended that you follow-up with your primary care physician within one week of discharge from the rehab facility. I recommend a repeat chest xray in 4-6 weeks to ensure complete resolution of pneumonia. It was a pleasure taking care of you! Call if you have any questions or problems. You can reach a [facility] hospitalist on duty at [facility] 24 hours a day by calling [phone]. Take care of yourself. Layla Perez DO [facility] Hospitalist Current Hospital Diet Patient's current hospital diet: Diabetes Type 2 Diet Discharge Diet Recommended Diet: Diabetes Type 2 Diet Procedures Procedures Performed: Intramedullary Thony Right Femur Pending Studies Studies pending at discharge: no Laboratory Results Hemoglobin A1c Test 02/20/17 05:30 Range/Units Estimated Average Glucose 137 mg/dl Hemoglobin A1c 6.4 H 4.5-5.6 % Medical Emergencies . Who to Call and When: Medical Emergencies: If at any time you feel your situation is an emergency, please call 911 immediately. . Non-Emergent Contact Non-Emergency issues call your: Primary Care Provider . . "Provider Documentation" section prepared by Layla Perez. . Merchandise Director Recommendations Merchandise Director Recommendations: [facility] DISCHARGE INSTRUCTIONS: HIP FRACTURE SELF CARE INSTRUCTIONS: A. You are to ambulate with a walker or crutches for approximately 6 weeks. B. You are PARTIAL WEIGHT BEARING on your operative lower extremity for at least 4 - 6 weeks. C. Wear low heeled shoes with non-slip soles D. Be sure that your floors are free of things that could trip you throw rugs, electrical cords, and small objects. Avoid wet and waxed floors, especially with crutches/walker/cane. E. Try to walk several times a day with rest periods between. F. You may shower 48 hours after surgery and get the incision area wet, but DO NOT soak or submerge incision area in water. (No baths, swimming pools, hot tubs ) G. You may have a large, band-aid like dressing over your incision (Aquacel). This will remain on your incision for 7 days, and then can be removed. You CAN shower with this on. If incision is leaking through the dressing, please call the office . H. Do NOT apply soap or any ointment/lotions directly over incision. I. You may use ice as needed to operative site. SPECIAL CARE INSTRUCTIONS: VERY IMPORTANT TO READ AND REVIEW A. You may be at risk for phlebitis or blood clots. a. Wear surgical stockings (DARON hose) for 2 weeks after surgery to improve circulation and reduce swelling. b. Take LOVENOX 40mg SQ daily for 4 weeks or as directed. (Plavix as directed by your Primary Care Physician) This is your blood thinner. c. If you are on Coumadin- you will have daily/weekly blood work to monitor your levels. This will be done by either your family physician/ entrepreneurship program director (if you are on Coumadin chronically) versus your orthopedic surgeon. Expect a phone call the day of or the day after your blood work is drawn to adjust your dose accordingly. B. There are a few signs you need to watch for after you are home. Call [facility] at [phone] if you experience any of the following: a. If you have a temperature of 101 degrees or higher. b. Sudden increase in pain in your hip not relieved by rest or pain medication. c. Any fluid or drainage from the incision; redness of the incision. d. Shortness of breath or chest pain. B. Please call [facility] at [phone] if you have any questions or concerns about your operation or recovery. C. Call your physician if: a. Temperature is greater than 101 degrees (F). b. Pain is not relieved by prescribed pain medications. c. Increase drainage or redness from incision. d. Unanswered questions or concerns. D. Pain Medication: a. You will be prescribed pain medication upon discharge that should last till your first post-operative appointment. b. If you experience nausea and/or skin rash, discontinue this medication and contact our office for an alternative medication. c. Caution- narcotic pain medication can cause constipation. FOLLOW UP VISIT: Please call [facility] at [phone] to schedule a follow up appointment 10-14 days from the date of your surgery date. VTE Core Measure Inpt VTE Proph given/why not?: Enoxaparin (Lovenox)SQ
--- NOTE | 2017-03-03 12:59 | Discharge Summary ---
Discharge Summary Date of Service Mar 03, 2017. 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 Consultations: Ortho Pending Studies/Follow-Up: see instructions below. Medication Reconciliation New Medications: Amlodipine Besylate (Amlodipine Besylate) 5 Mg Tab 5 MG PO BID for 30 Days, #60 TAB Continued Medications: Calcium/Vitamin D (Os-Vinicius 500 Plus D) Tab 1 TAB PO BID, TAB Carbidopa/Levodopa (Sinemet 25MG/100MG) Tab 2 TAB PO TID, TAB Cholecalciferol (Kp Vitamin D) 1,000 Unit Cap 1 CAP PO DAILY for 90 Days, #90 CAP 3 Refills Clopidogrel (Plavix) 75 Mg Tab 75 MG PO DAILY, #30 0 Refills Donepezil Hydrochloride (Aricept) 10 Mg Tab 10 MG PO DAILY, TAB Loratadine (Claritin) 10 Mg Tab 10 MG PO DAILY, TAB Multiple Vitamins W/ Minerals (Centrum) 1 Chw Chw 1 DAILY Pravastatin (Pravachol ) 20 Mg Tab 20 MG PO HS, TAB Admission Information HPI (per Admitting provider): HISTORY OF PRESENT ILLNESS: History obtained from patient and records. Medical history significant for history of CVA, CRI ( baseline creatinine 1.4 to 1.5), Parkinson's disease, dementia. Patient is a personal senior living resident. Last night, patient attempted to get out of bed leading to her slipping on the floor and falling on her right side. No chest pain. No sob. No syncope. No head trauma. Unable to get up. Excruciating R hip pain. Patient evaluated at [facility] ER. Right hip x-ray showed right intertrochanteric hip fracture. Transferred to [facility] for Orthopedic services. Physical Exam (per Admitting): PHYSICAL EXAMINATION: VITAL SIGNS: Blood pressure noted to be 130/80, pulse rate 87, RR 16, temperature 36.8, sats 98 on room air. GENERAL: Noted to be slightly uncomfortable. No respiratory distress, oriented. SKIN: Normal color. HEAD, EYES, EARS, NOSE, AND THROAT: Becker palpebral conjunctivae. Dry mucosa. NECK: Short neck. LUNGS: Decreased breath sounds. HEART: Regular rate and rhythm. ABDOMEN: Soft. NT EXTREMITIES: Tenderness in the right hip. RLE ext rotated NEUROLOGIC EXAMINATION: No gross focality except for some slowed response to questions. Hospital Course 87 year old female with history of Parkinson's disease with dementia and h/o CVA with LUE weakness presents s/p mechanical fall at her [facility]. She has persistent R shoulder pain also when putting her arms overhead and mechanism of fall makes it likely that she carmelo her shoulder on the way down in an effort to catch herself. She is s/p trochanteric nailing on 02/20 for closed R hip fracture. Post op course complicated by pneumonia. She was treated with a course of Levaquin with improvement of all symptoms. Improvement in energy and renal function. 1. R hip fracture s/p ORIF-pain well-controlled. 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 2. Fever-post op setting 2/2 pneumonia-resolved since abx course given. F/u with CXR in 4-6 weeks as outpatient to ensure resolution. Stopped reg scheduled nebs. 3. Acute renal failure-resolved back to baseline. Nephro singed off. 4. Anemia-poss 2/2 acute blood loss anemia 2/2 surgery, stable, no indication for transfusion at this time. H/H stable. No transfusions given this admission. 5. R knee pain-resolved; no fractures on xray 6. R shoulder pain-possibly carmelo it on the way to the floor during her fall. Pain with overhead press and limited exam as patient is very weak. Xray this morning with no fracture present. Cont PT inpatient and outpatient. 7. HTN-Improved on the 5mg BID dosing of Norvasc. PRN Clonidine. 8. Parkinson's disease with dementia-likely multifactorial with acute infection , ARF and hospital delirium-cont good day/night cycles. Cont Sinemet and Aricept 9. h/o CVA with residual LUE weakness and difficulty accomplishing fine motor tasks with L hand. Plavix has been restarted post-op. Pravastatin continued. 10. Metabolic syndrome-A1C 6.4. Cont ADA diet. 11. Vit D def-cont supplementation DVT PROPHYLAXIS Lovenox SCDs in place Disposition anticipate d/c to rehab on Wed follows with Dr. Doan for Primary Care [facility] Total time spent on discharge = 60 minutes This includes examination of the patient, discharge planning, medication reconciliation, and communication with other providers. Discharge Instructions Discharge Instructions Date of Service Mar 03, 2017. Admission Reason for Admission: Rt Hip Fracture Discharge Discharge Diagnosis / Problem: R hip fracture s/p ORIF, Pneumonia, NAHUM Discharge Goals Goal(s): Prevent Disease Progression Activity Recommendations Activity Limitations: per Instructions/Follow-up section . Instructions / Follow-Up Instructions / Follow-Up Please take all medications as instructed. It is recommended that you follow-up with your primary care physician within one week of discharge from the rehab facility. I recommend a repeat chest xray in 4-6 weeks to ensure complete resolution of pneumonia. It was a pleasure taking care of you! Call if you have any questions or problems. You can reach a [facility] Hospitalist on duty at [facility] 24 hours a day by calling [phone]. Take care of yourself. Layla Perez DO [facility] Additional Copies To Danelle Doan D.O.
[2017-03-04 06:53] VITALS: BP 132/92; PULSE 125; TEMP 36.8; O2SAT 95
== END 2017-03-03 14:18 | DRG 480 ==
LOC: C.MSW 04:59
PROVIDERS: ADMIT Internal Medicine; ATTEND Hospitalist
PROC: 0QS634Z Reposition Right Upper Femur with Internal Fixation Device, Percutaneous Approach (ICD-10-PCS; principal; 2017-02-20 12:30)
DX: S72.101A Unspecified trochanteric fracture of right femur, initial encounter for closed fracture (principal); J18.9 Pneumonia, unspecified organism; N17.9 Acute kidney failure, unspecified; D62 Acute posthemorrhagic anemia; I69.954 Hemiplegia and hemiparesis following unspecified cerebrovascular disease affecting left non-dominant side; G20 Parkinson's disease; Z88.0 Allergy status to penicillin; I12.9 Hypertensive chronic kidney disease with stage 1 through stage 4 chronic kidney disease, or unspecified chronic kidney disease; E88.81 Metabolic syndrome and other insulin resistance; F02.80 Dementia in other diseases classified elsewhere, unspecified severity, without behavioral disturbance, psychotic disturbance, mood disturbance, and anxiety; E55.9 Vitamin D deficiency, unspecified; N18.3 Chronic kidney disease, stage 3 (moderate); M25.561 Pain in right knee; Y92.89 Other specified places as the place of occurrence of the external cause; Y93.01 Activity, walking, marching and hiking; W06.XXXA Fall from bed, initial encounter; W01.0XXA Fall on same level from slipping, tripping and stumbling without subsequent striking against object, initial encounter